=== PATIENT | male | born 1955 | race Caucasian/White ===

== ENCOUNTER 2018-10-28 00:13 | Observation (INO) ==
[2018-10-29] MEDS ORDERED: Naloxone 0.4 MG/ML INJ IVP PRN (03:52)
[2018-10-29] MEDS ORDERED: Acetaminophen 325 MG TABLET PO PRN (03:52)
[2018-10-29] MEDS ORDERED: *HR* OxyCODONE Immed Rel 5 MG TABLET PO PRN (03:52)
[2018-10-29] MEDS ORDERED: *HR* HYDROcodone/Acet 5/325 mg TABLET PO PRN (03:52)
--- NOTE | 2018-10-29 04:18 | Internal Med History&Physical ---
Date of Encounter: 10/29/18 Time of Encounter: 04:16 Internal Medicine - H&P: HPI Chief complaint: Lower extremity wound Admitted From: Emergency Dept Plans for Post Hospital Care: Home History of present illness: Mr. Post is a 63 year old male with history of atrial fibrillation, seizure disorder presents with lower extremity pain and swelling. Patient states that over the last several days he is noting increasing swelling of his right lower extremity below the knee. He also reports increasing pain in this area. He states this feels similar to when he had cellulitis in the past. He denies any specific injury her skin wound however he does state that area did open up and has been draining. Denies any fevers or chills. Denies any worsening pain with walking. Discussed with patient who wishes to be full code. Past Med Surg Social Fam HX - Past Medical History Medical history: aortic aneurysm, atrial fibrillation, hyperlipidemia, hyp ertension, other Additional medical history: CVAx2 Psychiatric history: no psych history - Past Surgical History Surgical History: cholecystectomy, coronary bypass (CABG), other Additional surgical history: aneurism repair, aortic valve replacement - Social History Smoking Status: Never smoker Smokeless Tobacco Status: No Alcohol use: none Drug use: none - Family History Mother Living Status: Still Living Hx Family Cardiac Disorders: Yes (htn, stents) Hx Family Cancer: Yes (breast ca) Father Living Status: Hx Family Cardiac Disorders: Yes (chf, htn) Hx Family Endocrine Disorder: Yes (dm) Internal Medicine - H&P: Meds Furosemide [Lasix] 40 mg PO DAILY 08/23/15 [History] Aspirin [Lo-Dose Aspirin EC] 81 mg PO HS 10/29/18 [History] Atorvastatin [Lipitor] 80 mg PO HS 10/29/18 [History] LevETIRAcetam [Keppra] 500 mg PO BID 10/29/18 [History] Metoprolol [Lopressor] 25 mg PO BID 10/29/18 [History] Pantoprazole Sodium [Protonix] 20 mg PO DAILY 10/29/18 [History] Potassium Chloride [Klor-Con 10] 10 meq PO DAILY 10/29/18 [History] Senna 8.6 mg PO BID PRN 10/29/18 [History] Warfarin [Coumadin] 5 mg PO DAILY 10/29/18 [History] Allergy/AdvReac Type Severity Reaction Status Date / Time Penicillins [PCN] Allergy Hives Verified 08/23/15 15:36 All Systems PM: A 10-system review of systems was performed and is negative for pertinent findings except as documented above in the HPI. Review of systems: Templer resistance was obtained and negative other than stated below - Constitutional Constitutional: no chills, no fever(s) - Cardiovascular Cardiovascular ROS IM: no chest pain - Respiratory Respiratory: no cough, no dyspnea - Integumentary Integumentary IM: erythema, new lesions, skin ulcer, sores - Constitutional Vitals: Temp Pulse Resp BP Pulse Ox 97.8 F 69 16 148/78 97 10/29/18 01:46 10/29/18 01:46 10/29/18 01:46 10/29/18 01:46 10/29/18 02:25 General appearance: Present: A&O X 3, pleasant, no acute distress Exam: . - Head Head exam: Present: atraumatic, normal inspection, normocephalic - Eye Eye exam: Present: EOMI, PERRL - ENT ENT exam: Present: mucous membranes moist, normal oropharynx - Neck Neck exam general surgery: Present: full ROM. Absent: tenderness - Respiratory Respiratory exam: Present: CTAB. Absent: rales, rhonchi, wheezes - Cardiovascular Cardiovascular exam: Present: RRR. Absent: gallop, rubs, systolic murmur - GI/Abdominal GI/Abdominal exam: Present: normal bowel sounds, soft. Absent: distended, tenderness - Extremities Exam Additional comments: Right lower extremity: Areas of thick induration fluid collection in the right lower extremity posteriorly and inferiorly to the knee. There is an area of ulceration that is draining purulent, bloody fluid. Moderate amount of fluctuance is appreciated. There is surrounding erythema to the area that extends superiorly up past the knee joint. Neurovascularly intact. - Neurological Exam Neurological exam: Present: alert, CN II-XII intact, oriented X3, no focal deficits - Psychiatric Psychiatric exam: Present: normal affect, normal mood - Skin Skin exam: Present: dry, intact, warm - Assessment and Plan (1) Abscess Current Visit: Yes Status: Acute Assessment and plan: Patient presents with erythema and pain of the right lower extremities with induration and fluctuance appreciated. CT scan performed at outside hospital reviewed and show multiple abscesses in the lower extremity with an area of lucency in the tibial plateau. Start patient on antibiotics with vancomycin and cefepime, will obtain wound culture. Orthopedic surgery has been consulted, patient may require surgical intervention. Keep nothing by mouth for now (2) Atrial fibrillation Current Visit: Yes Status: Acute Assessment and plan: Patient has known atrial fibrillation with history of bovine aortic valve replacement. Currently anticoagulated with Coumadin. Check PT/INR. Hold Coumadin as patient may require surgical intervention. Get EKG. Qualifiers: Atrial fibrillation type: paroxysmal Qualified Code(s): I48.0 - Paroxysmal atrial fibrillation (3) Seizure disorder Current Visit: Yes Status: Acute Assessment and plan: No evidence of seizure activity. Continue Keppra. (4) Coronary artery disease Current Visit: Yes Status: Acute Assessment and plan: Patient reports history of CABG 2. Currently chest pain-free at this time. We will obtain EKG as the patient may require surgery. Qualifiers: Coronary Disease-Associated Artery/Lesion type: [place] artery [place] vs. transplanted heart: [place] heart Associated angina: without angina Qualified Code(s): I25.10 - Atherosclerotic heart disease of [place] coronary artery without angina pectoris - Time Spent With Patient Total time spent is greater than 50% in coordination of care (as documented) at patient's floor/unit and/or counseling patient:
[2018-10-29 04:26] LABS: Basophils % 0.5 %; Eosinophils # 0.4 K/mcL (0.0-0.6); Eosinophils % 4.3 %; Hematocrit 37.1 % (37.5-50.1); Hemoglobin 11.6 g/dL (12.9-16.9); Immature Granulocytes % 0.5 % (0-4); Lymphocytes # 1.9 K/mcL (0.6-4.6); Lymphocytes % 23.9 %; Mean Corpuscular HGB Conc 31.3 g/dL (31.6-35.5); Mean Corpuscular Hemoglobin 27.3 pg (28.0-33.3); Mean Corpuscular Volume 87.3 fL (83.0-100.0); Mean Platelet Volume 9.6 fL (9.4-12.4); Monocytes # 0.9 K/mcL (0.0-1.3); Monocytes % 10.6 %; Neutrophils # 4.9 K/mcL (1.6-8.9); Platelet Count 173 K/mcL (140-400); Red Blood Count 4.25 M/mcL (4.19-5.50); Red Cell Distribution Width 15.5 % (11.5-14.5); Segmented Neutrophils % 60.2 %; White Blood Count 8.1 K/mcL (4.3-11.1)
[2018-10-29 04:33] LABS: INR 3.4; Prothrombin Time 38.2 Seconds (9.4-12.1)
[2018-10-29] MEDS: Cefepime HCl 2,000 MG in Water for inj. (sterile) 20 ML 20 ML IVP SCH (04:37)
[2018-10-29 04:44] LABS: BUN/Creatinine Ratio 19 (6-26); Blood Urea Nitrogen 20 mg/dL (8-23); Calcium 8.8 mg/dL (8.6-10.3); Carbon Dioxide 31 mEq/L (23-29); Chloride 107 mEq/L (98-107); Glucose 106 mg/dL (70-105); Osmolality,Calculated 299 (280-300); Potassium 4.1 mEq/L (3.5-5.1); Sodium 143 mEq/L (136-145); eGFR For African Americans > 60 (> 60); eGFR For Non-African Americans > 60 (> 60)
[2018-10-29] MEDS: levETIRAcetam 250 MG TABLET PO SCH ×2 (08:02→19:59)
--- NOTE | 2018-10-29 08:19 | Event Note ---
Date of Encounter: 10/29/18 Time of Encounter: 08:06 Patient seen and examined this morning at bedside. Admitted overnight for possible abscess seen on his CT scan on her right lower extremity. Currently has Bandage on. Patient had aspiration of fluid collection by orthopedics this morning. We will continue empiric vancomycin and cefepime for now. Await cultures. We will likely need infectious disease input on Wednesday. INR is supratherapeutic. Hold Coumadin for now. Nursing from no surgical intervention planned per orthopedics now. EKG was sinus bradycardia. Hold morning metoprolol and start with decreased dosage.
--- NOTE | 2018-10-29 08:26 | Orthopedic Consult Note ---
Date of Encounter: 10/29/18 Time of Encounter: 08:26 Assessment and Plan (1) Cellulitis of leg, right Current Visit: No Status: Acute I did have a long discussion with the patient regarding the diagnosis. The patient has a well seated right total knee arthroplasty, no pain with weightbearing and no pain with motion of the knee. My suspicion for any acute intra-articular knee pathology or infection is quite low. He does have however a fluid collection in the medial subcutaneous soft tissues associate with smaller multifocal abscesses, likely related to a relatively recent saphenous vein graft harvesting as evidenced by the venkatesh seen on the CT scan corresponding with the lesions themselves. Under sterile technique and after verbal consent I did aspirate the medial soft tissue fluid collection and obtain 250 mL of straw-colored serous fluid consistent with seroma. My suspicion is that the patient is experiencing seroma as well as areas of abscess after saphenous vein graft harvesting. I did discuss these findings with the vascular surgeon event promotions coordinator who will evaluate the patient and manage the patient regarding the right lower extremity seroma/infection. The knee does not appear to be involved and therefore I do not recommend any intervention regarding the knee joint itself. I will be available at any time for further recommendations as needed. I have reviewed each of the pertinent components of this chart and any other pertinent medical component(s) including but not limited to pertinent application of the chief complaint, history of present illness, current medication, medical history, allergies, family history, medical history, surgical history, social history, review of systems, vital signs, and any other portion of the pertinent patient medical record directly or indirectly involved with this patient care that is pertinent based on my medical decision process. FABIAN Celeste History of Present Illness HPI: Mr. Post is a 63 year old male with a history of atrial fibrillation on Coumadin. He also has a history of bilateral total knee arthroplasty done by my partner Dr. Foley in 2009. The patient had done well from these. The patient was seen in [facility] emergency department yesterday and transferred to our facility due to abscess in the right leg. There is concern about possible involvement of the knee arthroplasty. This prompted an orthopedic consultation. On my evaluation the patient complains of heel sided pain localized to the distal thigh and proximal medial tibial region. He notes a chronic history of intermittent arthritis after a fall 2 years ago where he was managed for a hematoma and has been seeing Dr. Hamilton in the office. The patient did undergo saphenous vein graft harvesting on this side about 4 months ago at the [facility]. 2 weeks ago he began to notice a worsening of his medial sided leg pain localized to the areas as described above. Yesterday it began to drain in the proximal medial aspect of the tibial region. The patient denies any pain at the knee itself and is been able to ambulate without issue. He denies any associated numbness, tingling, or other signs or symptoms or modifying factors. Past Med Surg Social Fam HX - Past Medical History Medical history: aortic aneurysm, atrial fibrillation, hyperlipidemia, hypertension, other Additional medical history: CVAx2 Psychiatric history: no psych history - Past Surgical History Surgical History: cholecystectomy, coronary bypass (CABG), other Additional surgical history: aneurism repair, aortic valve replacement - Social History Smoking Status: Never smoker Smokeless Tobacco Status: No Alcohol use: none Drug use: none - Family History Mother Living Status: Still Living Hx Family Cardiac Disorders: Yes (htn, stents) Hx Family Cancer: Yes (breast ca) Father Living Status: Hx Family Cardiac Disorders: Yes (chf, htn) Hx Family Endocrine Disorder: Yes (dm) Medications and Allergies Furosemide [Lasix] 40 mg PO DAILY 08/23/15 [History] Aspirin [Lo-Dose Aspirin EC] 81 mg PO HS 10/29/18 [History] Atorvastatin [Lipitor] 80 mg PO HS 10/29/18 [History] LevETIRAcetam [Keppra] 500 mg PO BID 10/29/18 [History] Metoprolol [Lopressor] 25 mg PO BID 10/29/18 [History] Pantoprazole Sodium [Protonix] 20 mg PO DAILY 10/29/18 [History] Potassium Chloride [Klor-Con 10] 10 meq PO DAILY 10/29/18 [History] Senna 8.6 mg PO BID PRN 10/29/18 [History] Warfarin [Coumadin] 5 mg PO DAILY 10/29/18 [History] Allergy/AdvReac Type Severity Reaction Status Date / Time Penicillins [PCN] Allergy Hives Verified 08/23/15 15:36 All Systems Reviewed: Constitutional -The patient denies any fevers, chills, or feelings of illness Neurologic -The patient denies any numbness, tingling, or burning pains Physical Exam - Constitutional Vitals: Temp Pulse Resp BP Pulse Ox 97.6 F 54 16 127/73 95 10/29/18 06:32 10/29/18 06:32 10/29/18 06:32 10/29/18 06:32 10/29/18 06:32 CONSTITUTIONAL -Vitals reviewed -The patient is well developed, well nourished, well groomed PSYCHIATRIC -Fully alert and oriented -Pleasant mood RIGHT LOWER EXTREMITY Inspection shows generalized swelling to the right lower extremity. There is a small 1 cm area in the proximal medial portion of the leg region below the knee with a small amount of actively draining purulent material. There is generalized erythema which is faint and localized about the medial aspect of the knee region including the distal medial thigh and proximal medial tibial region. There is a well-healed incision medially from saphenous vein graft harvesting. There is a firm palpable fluid collection in the distal medial thigh region. Well-healed total knee incision. No significant palpable knee effusion and no tenderness about the knee joint itself. I can range the knee from 0 degrees to 90 degrees without pain. No pain with axial loading of the right lower extremity. He can dorsi flex implant flex ankle and toes and the foot is sensate and well-perfused. Diagnostic Imaging: I did personally review and interpret the CT scan of the right knee which demonstrates a well-seated total knee arthroplasty. 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 A suprapatellar collection was also seen, again unchanged since 2016 and does not appear to be clinically relevant.. Overall no changes in the knee alignment or appearance. Noted is a large well-defined fluid collection in the medial aspect of the distal thigh soft tissues and small areas of fluid collection consistent with abscess. This is all localized to the subcutaneous tissue not involving the knee joint. Results - Labs Result Diagrams: 10/29/18 04:14 10/29/18 04:14 Labs: Abnormal lab results Hgb 11.6 g/dL (12.9-16.9) L 10/29/18 04:14 Hct 37.1 % (37.5-50.1) L 10/29/18 04:14 MCH 27.3 pg (28.0-33.3) L 10/29/18 04:14 MCHC 31.3 g/dL (31.6-35.5) L 10/29/18 04:14 RDW 15.5 % (11.5-14.5) H 10/29/18 04:14 PT 38.2 Seconds (9.4-12.1) H 10/29/18 04:14 Carbon Dioxide 31 mEq/L (23-29) H 10/29/18 04:14 Glucose 106 mg/dL (70-105) H 10/29/18 04:14 H & H 10/29/18 Range/Units 04:14 Hgb 11.6 L (12.9-16.9) g/dL Hct 37.1 L (37.5-50.1) % All other labs normal. Consult Discharge Plan - Plan Referrals: Shanthi Mccollum [Primary Care Provider] -
[2018-10-29 10:33] LABS: Appearance of Body Fluid Clear (Clear); Source of Body Fluid Left knee seroma flu; Volume of Body Fluid 11 mL
--- NOTE | 2018-10-29 15:13 | Vascular/Endovasc Consult Note ---
Date of Encounter: 10/29/18 Time of Encounter: 15:00 Assessment and Plan (1) Cellulitis of leg, right Current Visit: No Status: Acute R leg cellulitis and abscess. Patient is very tender on exam and will not tolerate drainage by the bedside Will plan to take patient to OR tomorrow for I and D Will allow INR to drift down with FFP available in the OR. Discussed with patient who agrees NPO after midnight. - History of Present Illness Consult date: 10/29/18 Requesting physician: Galo Islas Consult reason: Cellulitis/seroma in setting of previous saphenous vein harvesting History of present illness: Mr. Post is a 63 year old male with a history of atrial fibrillation on Coumadin. He has a history of AVR, ascending aortic aneurysm repair and CABG four months ago at [facility] by Dr Pierre. The patient had done well from these. The patient was seen in [facility] emergency department yesterday and transferred to our facility due to abscess in the right leg. He had a fall two years ago in that same leg and has several bouts of cellulitis since that time. He was doing well and did undergo saphenous vein graft harvesting on this side about 4 months ago at the [facility]. 2 weeks ago he began to notice a worsening of his medial sided leg pain localized to the areas as described above. Yesterday it began to drain in the proximal medial aspect of the tibial region. He denies any associated numbness, tingling, or other signs or symptoms or modifying factors. Past Med Surg Social Fam HX - Past Medical History Medical history: aortic aneurysm, atrial fibrillation, hyperlipidemia, hypertension, other Additional medical history: CVAx2 Psychiatric history: no psych history - Past Surgical History Surgical History: cholecystectomy, coronary bypass (CABG), other Additional surgical history: aneurism repair, aortic valve replacement - Social History Smoking Status: Never smoker Smokeless Tobacco Status: No Alcohol use: none Drug use: none - Family History Mother Living Status: Still Living Hx Family Cardiac Disorders: Yes (htn, stents) Hx Family Cancer: Yes (breast ca) Father Living Status: Hx Family Cardiac Disorders: Yes (chf, htn) Hx Family Endocrine Disorder: Yes (dm) Medications and Allergies Furosemide [Lasix] 40 mg PO DAILY 08/23/15 [History] Aspirin [Lo-Dose Aspirin EC] 81 mg PO HS 10/29/18 [History] Atorvastatin [Lipitor] 80 mg PO HS 10/29/18 [History] LevETIRAcetam [Keppra] 500 mg PO BID 10/29/18 [History] Metoprolol [Lopressor] 25 mg PO BID 10/29/18 [History] Pantoprazole Sodium [Protonix] 20 mg PO DAILY 10/29/18 [History] Potassium Chloride [Klor-Con 10] 10 meq PO DAILY 10/29/18 [History] Senna 8.6 mg PO BID PRN 10/29/18 [History] Warfarin [Coumadin] 5 mg PO DAILY 10/29/18 [History] Allergy/AdvReac Type Severity Reaction Status Date / Time Penicillins [PCN] Allergy Hives Verified 08/23/15 15:36 All Systems Review: The remainder of the systems were reviewed and are negative Exam Vital Signs, Last 4 Hours Temp Pulse Resp BP Pulse Ox 10/29/18 12:14 97.7 F 58 18 112/65 96 General: Present: Conversant, No Apparent Distress HEENT: Present: Atraumatic Cardiac: Present: Reg Rate and Rhythm Lungs: Present: Normal Breath Sounds Neuro: Present: Alert and responsive, No focal deficits noted Abdomen: Present: Soft Vascular: Present: Pulse, normal, Other (Stigmata of venous insufficiency bilateral R>L) Skin: Present: Wound/ulcer(s) (1-2cm purulent area proximal medial calf actively draining, surrounding extensive cellulitis) Consult Discharge Plan - Plan Referrals: Shanthi Mccollum [Primary Care Provider] -
[2018-10-29] MEDS: Aspirin Enteric Coated 81 MG Tablet PO SCH (19:59)
[2018-10-30] MEDS ORDERED: Aminoglycoside Consult 1 EACH MC ONE (01:35)
[2018-10-30] MEDS: Cefepime HCl 2,000 MG in Water for inj. (sterile) 20 ML 20 ML IVP SCH (03:19)
[2018-10-30 04:52] LABS: INR 2.5; Prothrombin Time 28.6 Seconds (9.4-12.1)
[2018-10-30 05:05] LABS: BUN/Creatinine Ratio 19 (6-26); Blood Urea Nitrogen 25 mg/dL (8-23); Calcium 8.5 mg/dL (8.6-10.3); Carbon Dioxide 27 mEq/L (23-29); Chloride 109 mEq/L (98-107); Glucose 130 mg/dL (70-105); Osmolality,Calculated 304 (280-300); Potassium 4.1 mEq/L (3.5-5.1); Sodium 144 mEq/L (136-145); eGFR For African Americans > 60 (> 60); eGFR For Non-African Americans 55 (> 60)
--- NOTE | 2018-10-30 08:10 | Internal Med Progress Note ---
Hospitalist Progress Note - Encounter Date of Encounter: 10/30/18 Time of Encounter: 08:10 - Subjective Interval History: Patient seen and examined this morning at present. No acute overnight events. Denies new complaints. Right leg pain improved. No fever or chills nausea vomiting or diarrhea. - Exam Vitals: Temp Pulse Resp BP Pulse Ox 98.1 F 70 15 138/75 96 10/30/18 07:41 10/30/18 07:41 10/30/18 07:41 10/30/18 07:41 10/30/18 07:41 Exam: General: In no acute distress. Morbid obesity Respiratory exam: CTAB. no accessory muscle use, rales, rhonchi, wheezes Cardiovascular exam: RRR, +S1, +S2. no murmur, gallop, rubs. GI/Abdominal exam: Non-tender, Non-distended, normal bowel sounds, soft, no peritoneal signs. Extremities exam: trace pedal edema b/l, pulses palpable in b/l lower extremities. no calf tenderness. Rt LE with GAGE wrap and bandage. Redness margin receded compared on markings. Neurological exam: CN II-XII intact, AO X3, no focal deficits. Skin exam: as above - Assessment and Plan (1) Abscess Current Visit: Yes Status: Acute (2) Atrial fibrillation Current Visit: Yes Status: Acute (3) Seizure disorder Current Visit: Yes Status: Acute (4) Coronary artery disease Current Visit: Yes Status: Acute - Summary of Assessment and Plan Summary of Assessment and Plan: Assessment Acute Cellulitis and abscess OSKAR sinus Bradycardia Chronic HTN HLD Afib Aortic aneurysm CAD s/p CABG and AVR Seizure disorder Plan - Recent saphenous vein harvesting for CABG about 4 months ago. Came with 2 week h/o swelling, redness and pain. CT showed multifocal abscesses. s/p aspiration by ortho. No knee involvement per ortho and no further intervention needed. erythema margin reduced compared to admission. Was started on vancomycin and cefepime. Developed OSKAR. Will change vancomycin to clindamycin for now. Start IVF. Obtain urinalysis and urine sodium, manager environmental health and safety. Will consult ID tomorrow. f/u wound cultures. Blood culture not collect on admission. Will obtain. - Vascular consulted. Plan for I&D in OR today. INR 2.5. May give FFP in OR. Coumadin held for now. - Started on decreased dose of metoprolol given sinus bradycardia on home metoprolol. - c/w [facility]: Result - Labs CBC & Chem 7: 10/29/18 04:14 10/30/18 04:20 Labs: BMP 10/30/18 04:20 Sodium 144 Potassium 4.1 Chloride 109 H Carbon Dioxide 27 BUN 25 H Creatinine 1.32 H Glucose 130 H Calcium 8.5 L - ABG Interpretation ABG results: PT/INR, D-dimer PT 28.6 Seconds (9.4-12.1) H 10/30/18 04:20 Consult Discharge Plan - Plan Referrals: Shanthi Mccollum [Primary Care Provider] - (2) Atrial fibrillation Qualifiers: Atrial fibrillation type: paroxysmal Qualified Code(s): I48.0 - Paroxysmal atrial fibrillation (4) Coronary artery disease Qualifiers: Coronary Disease-Associated Artery/Lesion type: [place] artery [place] vs. transplanted heart: [place] heart Associated angina: without angina Qualified Code(s): I25.10 - Atherosclerotic heart disease of [place] coronary artery without angina pectoris
[2018-10-30] MEDS: levETIRAcetam 250 MG TABLET PO SCH ×2 (09:05→20:47)
[2018-10-30] MEDS: Ringers Solution, Lactated 1,000 ML IVC SCH (09:07)
--- NOTE | 2018-10-30 09:07 | Anesthesia Evaluation PreOp ---
Date of Encounter: 10/30/18 Time of Encounter: 09:04 - Past History Planned Operation: I & D R leg abcess Cardiac History: Arrhythmia (afib), Cardiac Surgery (CABG, AVR), Other (aortic aneurysm repair) Pulmonary History: Denies Any Significant HX INSPECTOR RECEIVING History: Seizures Other Medical History: Renal (OSKAR), Other (cellulitis in the setting of previous saphenous vein harvetsting, BMI 42) Anesthesia History: No Prior Anesthetic Complications, Past Anesthesia (cholecystectomy, coronary bypass (CABG), other Additional surgical history: aneurysm repair, aortic valve replacement) Alcohol Use: none Drug use: none Medications and Allergies Furosemide [Lasix] 40 mg PO DAILY 08/23/15 [History] Aspirin [Lo-Dose Aspirin EC] 81 mg PO HS 10/29/18 [History] LevETIRAcetam [Keppra] 500 mg PO BID 10/29/18 [History] Metoprolol [Lopressor] 25 mg PO BID 10/29/18 [History] Pantoprazole Sodium [Protonix] 20 mg PO DAILY 10/29/18 [History] Potassium Chloride [Klor-Con 10] 10 meq PO DAILY 10/29/18 [History] Sennosides [Senna] 8.6 mg PO BID PRN 10/29/18 [History] Warfarin [Coumadin] 5 mg PO 1800 10/29/18 [History] Atorvastatin Calcium [Lipitor] 80 mg PO HS 10/30/18 [History] Allergy/AdvReac Type Severity Reaction Status Date / Time Penicillins [PCN] Allergy Hives Verified 10/30/18 13:40 - Meds/Allergy Pre-op Review Medications Reviewed: Yes Allergies Reviewed: Yes Beta Blockers on Current Med List: Yes If Beta Blockers taken, Date/Time (Last Dose taken): 10/29/181958 Anesthesia Results - Labs 10/29/18 04:14 10/30/18 04:20 Laboratory Tests 08/24/15 10/30/18 04:19 04:20 PT 28.6 H APTT 35.3 INR 2.5 Anesthesia Exam Vital Signs/O2 Sat, Most Current Temp Pulse Resp BP Pulse Ox 98.1 F 70 15 138/75 96 10/30/18 07:41 10/30/18 07:41 10/30/18 07:41 10/30/18 07:41 10/30/18 07:41 Weight: 131kg NPO (# of Hours): >8 - HEENT Pupil (Motor): Pupils equal, EOMI Mallampati: II Teeth: Edentulous Oral Opening: Greater than 3 - INSPECTOR RECEIVING LOC: Oriented INSPECTOR RECEIVING Motor: Normal RUE, Normal LUE, Normal RLE, Normal LLE, Normal Face INSPECTOR RECEIVING Sensory: Normal: RUE, LUE, RLE, LLE, Face - Cardiac Rhythm: Regular - Pulmonary Breath Sounds: bilateral Clear Respiratory Effort: Symmetrical Anesthesia Assess/Plan ASA Score: 3 Level of consciousness: Cooperative Anesthetic Plan: General Monitoring Plan: Standard Monitors Recovery Plan: PACU
[2018-10-30 10:59] LABS: Bilirubin,Urine Negative (Negative); Blood,Urine Negative (Negative); Clarity,Urine Clear (Clear); Color,Urine Yellow (Yellow); Glucose,Urine (UA) Normal (Normal); Ketones,Urine Negative (Negative); Leukocyte Esterase,Urine Trace (Negative); Nitrite,Urine Negative (Negative); Protein,Urine Trace mg/dL (Neg-Trace); Specific Gravity,Urine 1.008 (1.010-1.025); Urobilinogen,Urine Normal (Normal)
[2018-10-30 11:00] LABS: Sodium, Urine 137.7 mEq/L
[2018-10-30 11:17] LABS: Bacteria,Urine Few per hpf (None-Few); RBC,Urine 0-3 per hpf (0-3); Squamous Epithelial Cell,Urine Few per lpf (None-Few); WBC,Urine 0-3 per hpf (0-3)
[2018-10-30] MEDS ORDERED: *HR* Midazolam HCl 2 MG/2 ML VIAL ONE (14:15)
[2018-10-30] MEDS ORDERED: *HR* FentaNYL (PF) 100 MCG/2 ML VIAL ONE (14:15)
[2018-10-30] MEDS ORDERED: *HR* Propofol 200 MG/20 ML VIAL IVP ONE (14:15)
[2018-10-30] MEDS ORDERED: Ondansetron 4 MG/2 ML VIAL ONE (14:18)
[2018-10-30] MEDS ORDERED: Lidocaine -MPF 2% 2 ML VIAL ONE (14:18)
[2018-10-30] MEDS ORDERED: *HR* Succinylcholine 200 MG/10 ML VIAL IVP ONE (14:18)
[2018-10-30] MEDS ORDERED: Lidocaine -MPF 4% 5 ML AMPUL ONE (14:18)
[2018-10-30] MEDS: Clindamycin 600 MG/50 ML 600 MG/50 ML IV.SOLN IVPB SCH (16:17)
[2018-10-30] MEDS ORDERED: Dexamethasone 4 MG/ML VIAL ONE (16:27)
[2018-10-30] MEDS ORDERED: *HR* Promethazine 25 MG/ML VIAL IVP PRN (17:04)
[2018-10-30] MEDS ORDERED: *HR* OxyCODONE Immed Rel 5 MG TABLET PO PRN (17:04)
[2018-10-30] MEDS ORDERED: Ondansetron 4 MG/2 ML VIAL IVP ONE (17:04)
[2018-10-30] MEDS ORDERED: *HR* FentaNYL (PF) 100 MCG/2 ML VIAL IVP PRN (17:04)
--- NOTE | 2018-10-30 17:08 | Operative Note ---
Date of procedure: 10/30/18 Pre-op diagnosis: Right lower extremity abscess Post-op diagnosis: same Procedure: Incision and drainage of a right lower extremity abscess Complications: none Anesthesia: TRINOA Surgeon: Lela Frank Was there an health information assistant present: No Estimated blood loss (cc): 2 Specimen: Wound culture Condition: stable Disposition: floor Procedure in Detail: 63 year old male with a history of a soft tissue injury to right lower extremity who is plagued with recurrent cellulitis. Developed cellulitis in the right lower extremity just distal of a previous greater saphenous vein harvest site with subsequent abscess formation and drainage. CT of the lower extremity was performed at outside hospital. Upon review of the outside CT and his physical examination, the decision was made to take him to the OR for incision and drainage of the abscess as well as exploration of the wound to see if it communicated with a larger fluid collection in his thigh. After informed consent was obtained, the patient was taken to the operating room and placed on the table in supine position. An audible timeout was performed and he was then induced with anesthesia. His right leg was prepped and draped in the usual sterile fashion. The wound was probed and felt to extend posteriorly into a deeper cavity. A 2cm incision was made over the abscess extending the wound longitudinally. The cavity was entered and drained of 4cc of purulent material. The cavity was probed and did not appear to communicate with the seroma in the thigh. Culture swabs were obtained. The wound was irrigated with 100cc of normal saline. The wound was then packed with 4x4 gauze soaked in normal saline and then covered with a dry gauze. The leg was then wrapped in a kerlex and an GAGE bandage. He was extubated and taken to the recovery room in stable condition.
[2018-10-30] MEDS ORDERED: Acetaminophen IV 1,000 MG/100 ML INFUS..BTL IVPB ONE (17:09)
[2018-10-30] MEDS ORDERED: Ringers Solution, Lactated 1,000 ML IVC SCH (17:15)
--- NOTE | 2018-10-30 17:16 | Anesthesia Evaluation Post Op ---
Date of Encounter: 10/30/18 Time of Encounter: 17:16 - Vital Signs Vital Signs: Vital Signs/O2 Sat, Most Current Temp Pulse Resp BP Pulse Ox 96.8 F L 54 14 138/72 92 10/30/18 16:54 10/30/18 17:14 10/30/18 17:14 10/30/18 17:14 10/30/18 17:14 - Lungs Lungs: Clear Ascult./Percussion - Airway Airway: Non-obstructed - Cardiovascular Regular Rate - Mental Status Mental Status: Alert & Oriented, Answers Appropriately - Pain Pain Scale: 0 Pain Scale used: Numeric (1 - 10) - Nausea Vomiting Nausea Vomiting: Not Present - Hydration Hydration: Ice chips - Discharge PostOp Status: Transfer Patient to floor
[2018-10-30 18:30] LABS: BUN/Creatinine Ratio 20 (6-26); Blood Urea Nitrogen 20 mg/dL (8-23); Calcium 8.8 mg/dL (8.6-10.3); Carbon Dioxide 23 mEq/L (23-29); Chloride 110 mEq/L (98-107); Glucose 92 mg/dL (70-105); Osmolality,Calculated 298 (280-300); Potassium 4.2 mEq/L (3.5-5.1); Sodium 143 mEq/L (136-145); eGFR For African Americans > 60 (> 60); eGFR For Non-African Americans > 60 (> 60)
[2018-10-30] MEDS: Aspirin Enteric Coated 81 MG Tablet PO SCH (20:47)
[2018-10-31] MEDS: Clindamycin 600 MG/50 ML 600 MG/50 ML IV.SOLN IVPB SCH ×2 (00:57→08:37)
[2018-10-31] MEDS: Ringers Solution, Lactated 1,000 ML IVC SCH (00:59)
[2018-10-31] MEDS: Cefepime HCl 2,000 MG in Water for inj. (sterile) 20 ML 20 ML IVP SCH ×2 (04:14→16:59)
[2018-10-31 06:02] LABS: Basophils % 0.1 %; Hematocrit 37.4 % (37.5-50.1); Hemoglobin 11.7 g/dL (12.9-16.9); Immature Granulocytes % 0.8 % (0-4); Lymphocytes # 0.9 K/mcL (0.6-4.6); Lymphocytes % 9.8 %; Mean Corpuscular HGB Conc 31.3 g/dL (31.6-35.5); Mean Corpuscular Hemoglobin 27.3 pg (28.0-33.3); Mean Corpuscular Volume 87.4 fL (83.0-100.0); Monocytes # 0.1 K/mcL (0.0-1.3); Monocytes % 1.4 %; Neutrophils # 7.7 K/mcL (1.6-8.9); Platelet Count 201 K/mcL (140-400); Red Blood Count 4.28 M/mcL (4.19-5.50); Red Cell Distribution Width 15.3 % (11.5-14.5); Segmented Neutrophils % 87.9 %; White Blood Count 8.8 K/mcL (4.3-11.1)
[2018-10-31 06:19] LABS: BUN/Creatinine Ratio 20 (6-26); Blood Urea Nitrogen 25 mg/dL (8-23); Calcium 9.1 mg/dL (8.6-10.3); Carbon Dioxide 24 mEq/L (23-29); Chloride 108 mEq/L (98-107); Glucose 165 mg/dL (70-105); Osmolality,Calculated 302 (280-300); Potassium 4.2 mEq/L (3.5-5.1); Sodium 142 mEq/L (136-145); eGFR For African Americans > 60 (> 60); eGFR For Non-African Americans 60 (> 60)
[2018-10-31] MEDS: levETIRAcetam 250 MG TABLET PO SCH ×2 (08:37→20:43)
--- NOTE | 2018-10-31 09:10 | Infectious Disease Consult ---
Infectious Disease-Consult - Encounter Date/Time Date of Encounter: 10/31/18 Time of Encounter: 10:08 - Data of Consult Patient: new to practice Reason for consult: RLE abscess Consult date: 10/31/18 Requesting Physician: Tonio Cabello MD Primary Care Provider: Shanthi BAZZI HPI: Mr. Post is a 63-year-old male with past medical history of A. fib, seizures, hyperlipidemia, hypertension, CVA, status post CABG with saphenous vein graft harvesting, AVR, and abdominal aortic aneurysm repair at [facility] 4 months ago and remote history of total knee replacement in the right lower extremity. The patient was admitted to the hospital 10/29/18 for right lower extremity abscess. We are consulted 10/31/18 for further workup and treatment recommendations for right lower extremity abscess. Briefly, the patient is a 63-year-old male with past medical history as stated above. The patient presented to [facility] with complaints of right lower extremity swelling and pain that had started a couple of days prior to admission. He developed drainage from his right lower extremity which p rompted his valuation the emergency department. Upon arrival, he was afebrile and hemodynamically stable. A was normal. He was CT of the right lower extremity that showed multiple superficial abscesses in the posterior medial right lower extremity as well as an indeterminate suprapatellar collection indeterminate subcortical lucency of the posterior medial tibial plateau. This far as I can tell, no cultures were obtained at the outside facility. He was transferred here for further evaluation and treatment. Since admission, he has been evaluated by orthopedics who aspirated about 250 ML's of serous fluid from the suprapatellar fluid collection. Cell count with differential was completed that revealed TLC of 174 with 98% leukocytes. Cultures no growth and Gram stain is negative. He was evaluated by vascular surgery for the right lower extremity abscesses which appeared to be at his previous saphenous graft harvesting site. He was taken to the operating room 10/30/[address] Farnk where he underwent an I&D of the right lower extremity abscess. Intraoperative cultures are pending. Blood cultures drawn 10/30/18 are pending 2 sets. He was initially started on cefepime and vancomycin on admission, the vancomycin was discontinued due to concern for OSKAR. Currently, the patient is on cefepime and clindamycin. We have been asked to evaluate and make further recommendations. During my exam today, the patient endorses the history as stated above. He states he has had recurrent cellulitis in the RLE since he sustained a work- related injury in 2016. He was taking prophylactic clindamycin prior to his recent heart surgery, but it was discontinued post-op. He endorses some subjective chills for a couple of weeks, but denies fevers. Denies headache, neck pain, weakness, or dizziness. Denies nausea, vomiting, diarrhea, or constipation. Denies abdominal pain or urinary complaints. States appetite is been okay. Denies pain except in the right lower extremity. Denies oral thrush or skin rashes. The patient lives at home with his and 2 children. 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 Denies tobacco, alcohol, or illicit drug use. Denies recent travel. Has an outside dog and an inside cat, but denies bites or scratches. Denies chronic infectious diseases. - ROS Review of Systems: All systems reviewed and no additional remarkable complaints except as stated. - Results CBC & Chem 7: 10/31/18 05:39 10/31/18 05:39 - Exam Vitals: Temp Pulse Resp BP Pulse Ox 97.7 F 45 17 138/74 96 10/31/18 06:44 10/31/18 06:44 10/31/18 06:44 10/31/18 06:44 10/31/18 06:44 Exam: Head: Atraumatic, normal inspection, normocephalic. Eye: EOMI, PERRLA, no scleral icterus noted. ENT: Mucous membranes moist. No odontogenic infection noted. Neck: Normal inspection, no meningismus. Respiratory: Clear to auscultation. No rales, respiratory distress, rhonchi, or wheezes noted. Cardiovascular: Regular rate and rhythm, S1 and S2 audible. No murmurs, rubs, or gallops. GI: Soft, obese, normal bowel sounds. Extremities:No joint swelling noted. RLE 1+ edema. RLE dressing C/D/I. Venous stasis dermatitis noted to the BLE. Back: Normal inspection. No vertebral tenderness noted. Neurological: Alert, oriented 3, no focal deficits. Psychiatric: normal affect, normal mood. Skin: Dry, intact, warm. Normal color. No rashes. Furosemide [Lasix] 40 mg PO DAILY 08/23/15 [History] Aspirin [Lo-Dose Aspirin EC] 81 mg PO HS 10/29/18 [History] LevETIRAcetam [Keppra] 500 mg PO BID 10/29/18 [History] Metoprolol [Lopressor] 25 mg PO BID 10/29/18 [History] Pantoprazole Sodium [Protonix] 20 mg PO DAILY 10/29/18 [History] Potassium Chloride [Klor-Con 10] 10 meq PO DAILY 10/29/18 [History] Sennosides [Senna] 8.6 mg PO BID PRN 10/29/18 [History] Warfarin [Coumadin] 5 mg PO 1800 10/29/18 [History] Atorvastatin Calcium [Lipitor] 80 mg PO HS 10/30/18 [History] Allergy/AdvReac Type Severity Reaction Status Date / Time Penicillins [PCN] Allergy Hives Verified 10/30/18 13:40 - Assessment and Plan (1) Abscess Current Visit: Yes Status: Acute Location: RLE. Causative organism: unclear. CT of the RLE showed multiple superficial abscess in the posterior medial right lower extremity. No SIRS criteria. Blood cultures drawn 10/29/18 at [facility] are NGTD x 2 sets. Repeat blood cultures drawn here 10/30/18 are pending x 2 sets. Vascular surgery consult a due to concern that this was at the site of the patient's prior saphenous vein harvesting. Status post I&D of the right lower extremity abscess 10/30/[address] Frank. Operative note reviewed. Intraoperative cultures are pending. Currently on cefepime and clindamycin. SNOMED Code(s): 676961585 (2) Cellulitis of leg, right Current Visit: No Status: Acute Location: Right lower extremity. Chronic, recurring. Causative organism: Unclear. The patient likely has an element of venous stasis that is contributing to his recurrent cellulitis. Improved per patient report. Currently on cefepime and clindamycin. SNOMED Code(s): 381965125 (3) Obesities, morbid Current Visit: No Status: Chronic SNOMED Code(s): 798449619 (4) Atrial fibrillation Current Visit: Yes Status: Chronic Qualifiers: Atrial fibrillation type: paroxysmal Qualified Code(s): I48.0 - Paroxysmal atrial fibrillation SNOMED Code(s): 91662370 (5) Seizure disorder Current Visit: Yes Status: Acute SNOMED Code(s): 842457729 (6) Coronary artery disease Current Visit: Yes Status: Acute Status post CABG, aortic aneurysm repair, and AVR [facility] [address] [facility]. Qualifiers: Coronary Disease-Associated Artery/Lesion type: [place] artery [place] vs. transplanted heart: [place] heart Associated angina: without angina Qualified Code(s): I25.10 - Atherosclerotic heart disease of [place] coronary artery without angina pectoris SNOMED Code(s): 99048681 (7) Drug allergy, antibiotic Current Visit: Yes Status: Acute PCN - as a child. Tolerating cefepime without a problem. SNOMED Code(s): 746528276609031 - Recommendations Recommendations: Await blood cultures devitalized. Await intraoperative cultures finalized. Wound care per the vascular team. Continue cefepime 2 g IV every 12 hours. Discontinue clindamycin. Start vancomycin IV. Pharmacy to dose. Goal trough approximately 10. Will monitor renal function closely and discuss with pharmacy re: keeping trough closer to 10. Start flagyl 500mg PO TID. Duration of treatment depends on the clinical picture. Monitor renal function for drug toxicity and does just antibiotics. Past Med Surg Social Fam HX - Past Medical History Medical history: aortic aneurysm, atrial fibrillation, hyperlipidemia, hypertension, other Additional medical history: CVAx2 Psychiatric history: no psych history - Past Surgical History Surgical History: cholecystectomy, coronary bypass (CABG), other Additional surgical history: aneurism repair, aortic valve replacement - Social History Smoking Status: Never smoker Smokeless Tobacco Status: No Alcohol use: none Drug use: none - Family History Mother Living Status: Still Living Hx Family Cardiac Disorders: Yes (htn, stents) Hx Family Cancer: Yes (breast ca) Father Living Status: Hx Family Cardiac Disorders: Yes (chf, htn) Hx Family Endocrine Disorder: Yes (dm) Consult Discharge Plan - Plan Referrals: Shanthi Mccollum [Primary Care Provider] - - Attending Attestation I have personally performed a face to face evaluation on this patient. I have reviewed and agree with the care plan. History and Exam by me shows: Assessment and plan: 1.Abscess right lower extremity causative organism clear 2.Cellulitis of the right lower extremity 3.Morbid obesity 4.History of CVA 5.Seizure disorder 6.Heart disease 7.Status post bovine aortic valve replacement 8.Penicillin allergy tolerating cefepime Recommendations Await blood cultures devitalized. Await intraoperative cultures finalized. Wound care per the vascular team. Continue cefepime 2 g IV every 12 hours. Discontinue clindamycin. Start vancomycin IV. Pharmacy to dose. Goal trough approximately 10. Will monitor renal function closely and discuss with pharmacy re: keeping trough luan ser to 10. Start flagyl 500mg PO TID. Duration of treatment depends on the clinical picture. Monitor renal function for drug toxicity and does just antibiotics.
--- NOTE | 2018-10-31 10:19 | Internal Med Progress Note ---
Hospitalist Progress Note - Encounter Date of Encounter: 10/31/18 Time of Encounter: 10:19 - Subjective Interval History: Patient seen and examined this morning at bedside. No acute overnight events. Patient denies any fevers chills nausea vomiting or diarrhea. Denies any chest pain or difficulty breathing. Right lower extremity pain improved. - Exam Vitals: Temp Pulse Resp BP Pulse Ox 97.7 F 45 17 138/74 96 10/31/18 06:44 10/31/18 06:44 10/31/18 06:44 10/31/18 06:44 10/31/18 06:44 Exam: General: In no acute distress. Morbid obesity Respiratory exam: CTAB. no accessory muscle use, rales, rhonchi, wheezes Cardiovascular exam: RRR, +S1, +S2. no murmur, gallop, rubs. GI/Abdominal exam: Non-tender, Non-distended, normal bowel sounds, soft, no peritoneal signs. Extremities exam: trace pedal edema b/l, pulses palpable in b/l lower extremities. no calf tenderness. Rt LE with GAGE wrap and bandage. Redness margin receded compared on markings. Neurological exam: CN II-XII intact, AO X3, no focal deficits. Skin exam: as above - Assessment and Plan (1) Abscess Current Visit: Yes Status: Acute (2) Atrial fibrillation Current Visit: Yes Status: Chronic (3) Seizure disorder Current Visit: Yes Status: Acute (4) Coronary artery disease Current Visit: Yes Status: Acute - Summary of Assessment and Plan Summary of Assessment and Plan: Assessment Acute Cellulitis and abscess OSKAR- resolved Sinus Bradycardia Chronic HTN HLD Afib Aortic aneurysm CAD s/p CABG and AVR Seizure disorder Plan - Recent saphenous vein harvesting for CABG about 4 months ago. Came with 2 week h/o swelling, redness and pain. CT showed multifocal abscesses. s/p aspiration by ortho. No knee involvement per ortho and no further intervention needed. s/p I&D by vascular surgery on 10/30/18 with 4cc purulent material drainage and wound was packed. erythema margin reduced compared to admission. Was started on vancomycin and cefepime. Developed OSKAR. Will change vancomycin to clindamycin for now. OSKAR resolved with fluid. Antibiotics now changed back to Vancomycin and cefepime per ID with close monitoring along with flagy. f/u wound cultures and Blood culture. ID recommendations appreciated. - Fena indicating intrinsic disease. Possibly with CKD. Monitor renal function while on vancomycin. Avoid nephrotoxins. - Has sinus bradycardia with avg rate around 40-50s. Hold metoprolol for now. BP stable. Hold BB for now. resume coumadin. - c/w [facility] Internal Medicine: Result - Labs CBC & Chem 7: 10/31/18 05:39 10/31/18 05:39 Labs: Short CBC 10/31/18 Range/Units 05:39 WBC 8.8 (4.3-11.1) K/mcL Hgb 11.7 L (12.9-16.9) g/dL Hct 37.4 L (37.5-50.1) % Plt Count 201 (140-400) K/mcL Neutrophils # 7.7 (1.6-8.9) K/mcL BMP 10/30/18 10/31/18 17:51 05:39 Sodium 143 142 Potassium 4.2 4.2 Chloride 110 H 108 H Carbon Dioxide 23 24 BUN 20 25 H Creatinine 0.98 1.22 Glucose 92 165 H Calcium 8.8 9.1 Urine 10/30/18 Range/Units 10:48 Urine Color Yellow (Yellow) Urine Clarity Clear (Clear) Urine pH 6.0 (5.0-8.0) pH Units Ur Specific [place] 1.008 L (1.010-1.025) Urine Protein Trace (Neg-Trace) mg/dL Urine Glucose (UA) Normal (Normal) mg/dL - ABG Interpretation ABG results: PT/INR, D-dimer PT 28.6 Seconds (9.4-12.1) H 10/30/18 04:20 Consult Discharge Plan - Plan Referrals: Shanthi Mccollum [Primary Care Provider] - (2) Atrial fibrillation Qualifiers: Atrial fibrillation type: paroxysmal Qualified Code(s): I48.0 - Paroxysmal atrial fibrillation (4) Coronary artery disease Qualifiers: Coronary Disease-Associated Artery/Lesion type: [place] artery [place] vs. transplanted heart: [place] heart Associated angina: without angina Qualified Code(s): I25.10 - Atherosclerotic heart disease of [place] coronary artery without angina pectoris
[2018-10-31] MEDS ORDERED: Vancomycin 1 EACH in 0.9 % Sodium Chloride 250 ML IVPB SCH (14:00)
[2018-10-31] MEDS: metroNIDAZOLE 500 MG TABLET PO SCH ×2 (15:15→20:43)
[2018-10-31] MEDS ORDERED: Warfarin perPT PO PRN (18:00)
[2018-10-31 18:14] LABS: INR 1.8; Prothrombin Time 20.6 Seconds (9.4-12.1)
[2018-10-31] MEDS ORDERED: *HR* Warfarin 5 MG TABLET PO ONE (18:53)
[2018-10-31] MEDS ORDERED: Vancomycin 500 MG in 0.9 % Sodium Chloride Mini Bag 100 ML IVPB ONE (20:00)
[2018-10-31] MEDS: Aspirin Enteric Coated 81 MG Tablet PO SCH (20:43)
[2018-11-01] MEDS ORDERED: Aminoglycoside Consult 1 EACH MC ONE (01:35)
[2018-11-01 04:54] LABS: INR 1.8; Prothrombin Time 19.9 Seconds (9.4-12.1)
[2018-11-01 05:04] LABS: BUN/Creatinine Ratio 25 (6-26); Blood Urea Nitrogen 33 mg/dL (8-23); Calcium 8.8 mg/dL (8.6-10.3); Carbon Dioxide 25 mEq/L (23-29); Chloride 111 mEq/L (98-107); Glucose 121 mg/dL (70-105); Osmolality,Calculated 301 (280-300); Potassium 4.2 mEq/L (3.5-5.1); Sodium 141 mEq/L (136-145); eGFR For African Americans > 60 (> 60); eGFR For Non-African Americans 54 (> 60)
[2018-11-01] MEDS: Cefepime HCl 2,000 MG in Water for inj. (sterile) 20 ML 20 ML IVP SCH ×2 (05:32→14:54)
[2018-11-01] MEDS: levETIRAcetam 250 MG TABLET PO SCH ×2 (10:08→20:48)
[2018-11-01] MEDS: metroNIDAZOLE 500 MG TABLET PO SCH ×3 (10:08→20:49)
--- NOTE | 2018-11-01 11:52 | Infectious Disease Progress No ---
ID Progress Note Date of Encounter: 11/01/18 Time of Encounter: 11:30 - Subjective Subjective: Patient seen and examined sitting up in the bedside chair. No acute events noted overnight. Patient states overall he feels well. Denies fevers, chills, rigors. Denies chest pain, shortness of breath, or cough. Denies nausea, vomiting, diarrhea, constipation. Denies abdominal pain or urinary complaints. Denies oral thrush or skin rashes. Reports minimal pain at the surgical site. States overall his leg is markedly improved compared to when he was admitted. - Objective CBC & Chem 7: 10/31/18 05:39 11/02/18 05:48 - Exam Vitals: Temp Pulse Resp BP Pulse Ox 97.4 F L 56 18 157/81 94 11/01/18 11:00 11/01/18 11:00 11/01/18 11:00 11/01/18 11:00 11/01/18 11:00 Exam: Head: Atraumatic, normal inspection, normocephalic. Eye: EOMI, PERRLA, no scleral icterus noted. ENT: Mucous membranes moist. No odontogenic infection noted. Neck: Normal inspection, no meningismus. Respiratory: Clear to auscultation. No rales, respiratory distress, rhonchi, or wheezes noted. Cardiovascular: Regular rate and rhythm, S1 and S2 audible. No murmurs, rubs, or gallops. GI: Soft, obese, normal bowel sounds. Extremities:No joint swelling noted. RLE 1+ edema. RLE dressing C/D/I. no erythema noted extending beyond the edges of the gauze dressing. Venous stasis dermatitis noted to the BLE. Neurological: Alert, oriented 3, no focal deficits. Psychiatric: normal affect, normal mood. Skin: Dry, intact, warm. Normal color. No rashes. - Assessment and Plan (1) Abscess Current Visit: Yes Status: Acute Location: RLE. Causative organism: unclear. Intraoperative cultures positive for gram-negative rods, final ID and sensitivities pending. CT of the RLE showed multiple superficial abscess in the posterior medial right lower extremity. No SIRS criteria. Blood cultures drawn 10/29/18 at [facility] are NGTD x 2 sets. Repeat blood cultures drawn here 10/30/18 are no growth to date x 2 sets. Vascular surgery consult a due to concern that this was at the site of the patient's prior saphenous vein harvesting. Status post I&D of the right lower extremity abscess 10/30/[address] Frank. Operative note reviewed. Intraoperative cultures are positive for gram-negative rods. Final ID and sensitivities pending. Currently on cefepime and Flagyl. Vancomycin discontinued by the primary team this morning. SNOMED Code(s): 486913979 (2) Cellulitis of leg, right Current Visit: No Status: Acute Location: Right lower extremity. Chronic, recurring. Causative organism: Unclear. The patient likely has an element of venous stasis that is contributing to his recurrent cellulitis. Improved per patient report. Currently on cefepime and Flagyl. SNOMED Code(s): 168288859 (3) Obesities, morbid Current Visit: No Status: Chronic SNOMED Code(s): 738586649 (4) Atrial fibrillation Current Visit: Yes Status: Chronic Qualifiers: Atrial fibrillation type: paroxysmal Qualified Code(s): I48.0 - Paroxysmal atrial fibrillation SNOMED Code(s): 65470668 (5) Seizure disorder Current Visit: Yes Status: Chronic SNOMED Code(s): 478834163 (6) Coronary artery disease Current Visit: Yes Status: Chronic Status post CABG, aortic aneurysm repair, and AVR 4 months ago at [facility]. Qualifiers: Coronary Disease-Associated Artery/Lesion type: [place] artery [place] vs. transplanted heart: [place] heart Associated angina: without angina Qualified Code(s): I25.10 - Atherosclerotic heart disease of [place] coronary artery without angina pectoris SNOMED Code(s): 85390063 (7) Drug allergy, antibiotic Current Visit: Yes Status: Acute PCN - as a child. Tolerating cefepime without a problem. SNOMED Code(s): 561607081921895 - Recommendations Recommendations: Await blood cultures to finalize. Await intraoperative cultures to finalize. Wound care per the vascular team. Continue cefepime 2 g IV every 12 hours. Continue flagyl 500mg PO TID. Duration of treatment depends on the clinical picture. Monitor renal function for drug toxicity and does just antibiotics. Consult Discharge Plan - Plan Instructions: Atrial Fibrillation (DC), Cellulitis (DC) Referrals: Lela Frank [Non-Partnered Physician] - OriJefry covarrubias MD [Partnered Physician] - Shanthi Mccollum [Primary Care Provider] - Prescriptions: Ciprofloxacin [Cipro] 500 mg PO BID 3 Days #6 tablet - Attending Attestation I have personally performed a face to face evaluation on this patient. I have reviewed and agree with the care plan. History and Exam by me shows: Assessment and plan: 1.Abscess right lower extremity causative organism clear 2.Cellulitis of the right lower extremity 3.Morbid obesity 4.History of CVA 5.Seizure disorder 6.Heart disease 7.Status post bovine aortic valve replacement 8.Penicillin allergy tolerating cefepime Recommendations: Await cultures to finalize. Continue cefepime 2 g IV every 12 hours Continue Flagyl 500 3 times a day Duration of treatment depends on clinical picture Monitor labs and for drug toxicity
--- NOTE | 2018-11-01 12:31 | Internal Med Progress Note ---
Hospitalist Progress Note - Encounter Date of Encounter: 11/01/18 Time of Encounter: 10:45 - Subjective Interval History: Patient reports significant improvement in R leg discomfort. No fever/chills or N/V. Wants to know when he can be discharged. - Exam Vitals: Temp Pulse Resp BP Pulse Ox 97.4 F L 56 18 157/81 94 11/01/18 11:00 11/01/18 11:00 11/01/18 11:00 11/01/18 11:00 11/01/18 11:00 Exam: General: In no acute distress. Morbidly obese Respiratory exam: CTAB. no accessory muscle use, rales, rhonchi, wheezes Cardiovascular exam: RRR, +S1, +S2. no murmur, gallop, rubs. GI/Abdominal exam: Non-tender, Non-distended, normal bowel sounds, soft, no peritoneal signs. Extremities exam: Rt LE with GAGE wrap and bandage. Significant improvement in erythema noted compared on markings. Neurological exam: CN II-XII intact, AO X3, no focal deficits. - Assessment and Plan (1) Abscess Current Visit: Yes Status: Acute Assessment and Plan: following CABG in 06/2018 initially concerned for intra-articular involvement with hx of R TKR. Appreciate ortho consult, successful aspiration of seroma from medial R knee s/p I&D on 10/30 of the abscess by vascular surgery, wound culture growing GNR will d/c vanc, continue cefepime/flagyl ID input appreciated (2) Atrial fibrillation Current Visit: Yes Status: Chronic Assessment and Plan: Coumadin resumed postop, INR 1.8 noted to have sinus bradycardia in the range of mid 40s-50s. Will hold off bb (3) Seizure disorder Current Visit: Yes Status: Chronic Assessment and Plan: on keppra (4) Coronary artery disease Current Visit: Yes Status: Chronic Assessment and Plan: s/p CABG ASA, statin bb on hold as above (5) CKD (chronic kidney disease) stage 3, GFR 30-59 ml/min Current Visit: Yes Status: Chronic Assessment and Plan: Although her Cr was as low as 0.98, after reviewing the trend since 016, it appears that her baseline Cr is around 1.1-1.2 suspect underlying CKD 3, follow up with Nephrology as outpatient avoid nephrotoxins, renally dosed abx (6) Obesities, morbid Current Visit: No Status: Chronic Assessment and Plan: BMI 43.3 lifestyle modifications emphasized DVT Prophylaxis: on Coumadin - Time Spent with Patient Total time spent is greater than 50% in coordination of care (as documented) at patient's floor/unit and/or counseling patient: 25 - 35 minutes Internal Medicine: Result - Labs CBC & Chem 7: 10/31/18 05:39 11/01/18 04:31 Labs: BMP 11/01/18 04:31 Sodium 141 Potassium 4.2 Chloride 111 H Carbon Dioxide 25 BUN 33 H Creatinine 1.34 H Glucose 121 H Calcium 8.8 - ABG Interpretation ABG results: PT/INR, D-dimer PT 19.9 Seconds (9.4-12.1) H 11/01/18 04:31 Consult Discharge Plan - Plan Referrals: Shanthi Mccollum [Primary Care Provider] - (2) Atrial fibrillation Qualifiers: Atrial fibrillation type: paroxysmal Qualified Code(s): I48.0 - Paroxysmal atrial fibrillation (4) Coronary artery disease Qualifiers: Coronary Disease-Associated Artery/Lesion type: [place] artery [place] vs. transplanted heart: [place] heart Associated angina: without angina Qualified Code(s): I25.10 - Atherosclerotic heart disease of [place] coronary artery without angina pectoris
[2018-11-01] MEDS ORDERED: *HR* Warfarin 5 MG TABLET PO ONE (18:00)
[2018-11-01] MEDS: Aspirin Enteric Coated 81 MG Tablet PO SCH (20:48)
[2018-11-02] MEDS: Cefepime HCl 2,000 MG in Water for inj. (sterile) 20 ML 20 ML IVP SCH (04:06)
[2018-11-02 06:47] LABS: INR 1.7; Prothrombin Time 19.1 Seconds (9.4-12.1)
[2018-11-02 06:57] LABS: BUN/Creatinine Ratio 26 (6-26); Blood Urea Nitrogen 36 mg/dL (8-23); Calcium 8.4 mg/dL (8.6-10.3); Carbon Dioxide 26 mEq/L (23-29); Chloride 111 mEq/L (98-107); Glucose 104 mg/dL (70-105); Osmolality,Calculated 305 (280-300); Potassium 4.1 mEq/L (3.5-5.1); Sodium 143 mEq/L (136-145); eGFR For African Americans > 60 (> 60); eGFR For Non-African Americans 51 (> 60)
[2018-11-02] MEDS: levETIRAcetam 250 MG TABLET PO SCH (08:24)
[2018-11-02] MEDS: metroNIDAZOLE 500 MG TABLET PO SCH (08:24)
--- NOTE | 2018-11-02 09:52 | Discharge Summary ---
- NOTES TO OUTPATIENT PROVIDER Notes to Outpatient Provider: Follow-up with vascular surgery as outpatient Orders not resulted at time of discharge: Pending orders 10/29/18 04:21 EKG [ECG 12 lead ECG] [ECG] Routine 10/29/18 07:24 Culture,Wound [RM] Routine 10/30/18 08:34 Culture,Blood [BC] Stat 10/30/18 16:31 Culture,Anaerobic [RM] Routine Date of Encounter: 11/02/18 Time of Encounter: 08:00 - Discharge Diagnosis (1) Abscess Priority: Primary Status: Acute (2) Atrial fibrillation Priority: Secondary Status: Chronic Qualifiers: Atrial fibrillation type: paroxysmal Qualified Code(s): I48.0 - Paroxysmal atrial fibrillation (3) Seizure disorder Priority: Secondary Status: Chronic (4) Coronary artery disease Priority: Secondary Status: Chronic Qualifiers: Coronary Disease-Associated Artery/Lesion type: [place] artery [place] vs. transplanted heart: [place] heart Associated angina: without angina Qualified Code(s): I25.10 - Atherosclerotic heart disease of [place] coronary artery wi thout angina pectoris (5) CKD (chronic kidney disease) stage 3, GFR 30-59 ml/min Priority: Secondary Status: Chronic (6) Obesities, morbid Priority: Secondary Status: Chronic Hospital course: Mr. Post is a 63 year old male with history of A. fib on Coumadin, recent CABG, seizure d/o, who was admitted for right lower extremity abscess/cellulitis on the same limb where saphenous vein graft harvesting was performed at the time of CABG. Underwent I&D by vascular surgery on 10/30 uneventfully. THere was also a concern for possible intra-articular involvement of R knee for which orthopedic surgery evaluated the patient. He had needle aspiration performed on the medial sofit tissue fluid of the R knee which contained serous fluid and it was deemed that the finding was consistent with seroma. He clinically improved on broad spectrum abx and wound culture from I&D came back for Morganella resistant to PCN and cefazolin. He will be discharged on a total of 7 days of abx with the rest of the course to be completed with PO Cipro. Of note, he was noted to have fluctuating Cr during his admission and appears to have CKD stage III. SCript for repeat BMP in 5 days was provided with outpatient nephrology follow up. Discharge discussed with: patient, nurse - Time Spent with Patient Total time spent providing and/or coordinating discharge services: 29 mins - Discharge Medications Prescriptions: New Ciprofloxacin [Cipro] 500 mg PO BID 3 Days #6 tablet Continued Furosemide [Lasix] 40 mg PO DAILY Sennosides [Senna] 8.6 mg PO BID PRN PRN Reason: Constipation Potassium Chloride [Klor-Con 10] 10 meq PO DAILY Pantoprazole Sodium [Protonix] 20 mg PO DAILY Metoprolol [Lopressor] 25 mg PO BID LevETIRAcetam [Keppra] 500 mg PO BID Aspirin [Lo-Dose Aspirin EC] 81 mg PO HS Warfarin [Coumadin] 5 mg PO 1800 Atorvastatin Calcium [Lipitor] 80 mg PO HS Home Medications: Furosemide [Lasix] 40 mg PO DAILY 08/23/15 [History] Aspirin [Lo-Dose Aspirin EC] 81 mg PO HS 10/29/18 [History] LevETIRAcetam [Keppra] 500 mg PO BID 10/29/18 [History] Metoprolol [Lopressor] 25 mg PO BID 10/29/18 [History] Pantoprazole Sodium [Protonix] 20 mg PO DAILY 10/29/18 [History] Potassium Chloride [Klor-Con 10] 10 meq PO DAILY 10/29/18 [History] Sennosides [Senna] 8.6 mg PO BID PRN 10/29/18 [History] Warfarin [Coumadin] 5 mg PO 1800 10/29/18 [History] Atorvastatin Calcium [Lipitor] 80 mg PO HS 10/30/18 [History] Ciprofloxacin [Cipro] 500 mg PO BID 3 Days #6 tablet 11/02/18 [Rx] Allergies/Adverse Reactions: Allergy/AdvReac Type Severity Reaction Status Date / Time Penicillins [PCN] Allergy Hives Verified 10/30/18 13:40 Date of admission: 10/29/18 01:34 Primary care physician: Shanthi Mccollum Consults: 10/29/18 02:02 Consult to Pastoral Services [CONS] Routine Comment: 10/29/18 04:15 Consult to Orthopedic Surgery [CONS] Routine Consulting Provider: [facility] Reason for Consult: MARIA TERESA marcelino Call Completed: Yes 10/29/18 09:03 Consult to Vascular Surgery [CONS] Routine Consulting Provider: Vascular Surgery [place] Reason for Consult: Recent saphenous vein graft harvest with seroma and infection. Time Notified: 08:30 Call Completed: Yes 10/30/18 08:11 Consult to Infectious Diseases [CONS] Routine Consulting Provider: Infectious Disease [facility] Reason for Consult: cellulitis, abscess, AVR Call Completed: No - Constitutional Vitals: Temp Pulse Resp BP Pulse Ox 98.3 F 60 18 152/83 94 11/02/18 06:40 11/02/18 06:40 11/02/18 06:40 11/02/18 06:40 11/02/18 06:40 General appearance: Present: A&O X 3, pleasant, no acute distress Exam: General: In no acute distress. Morbidly obese Respiratory exam: CTAB. no accessory muscle use, rales, rhonchi, wheezes Cardiovascular exam: RRR, +S1, +S2. no murmur, gallop, rubs. GI/Abdominal exam: Non-tender, Non-distended, normal bowel sounds, soft, no peritoneal signs. Extremities exam: Rt LE with GAGE wrap and bandage. Significant improvement in erythema noted compared on markings. Neurological exam: CN II-XII intact, AO X3, no focal deficits. - Patient Status Disposition: Home, Self-Care Condition: Fair Functional capacity at discharge: independent ambulation Overall status at discharge: patient is progressing back to baseline - Discharge Instructions Instructions: Atrial Fibrillation (DC), Cellulitis (DC) Follow Up With: Shanthi Mccollum [Primary Care Provider] - Lela Frank [Non-Partnered Physician] - Jefry Trinh MD [Partnered Physician] - - Diet and Activity Activity: resume usual activities as tolerated Diet: diabetic diet
--- NOTE | 2018-11-02 10:37 | Infectious Disease Progress No ---
ID Progress Note Date of Encounter: 11/02/18 Time of Encounter: 10:20 - Subjective Subjective: Patient seen and examined sitting up in the bedside chair. at bedside. No acute events noted overnight. Patient states overall he feels well. Denies fevers, chills, rigors. Denies chest pain, shortness of breath, or cough. Denies nausea, vomiting, diarrhea, constipation. Denies abdominal pain or urinary complaints. Denies oral thrush or skin rashes. Reports BM yesterday. Reports minimal pain at the surgical site. States overall his leg is markedly improved compared to when he was admitted. - Objective CBC & Chem 7: 10/31/18 05:39 11/02/18 05:48 - Exam Vitals: Temp Pulse Resp BP Pulse Ox 98.3 F 60 18 152/83 94 11/02/18 06:40 11/02/18 06:40 11/02/18 06:40 11/02/18 06:40 11/02/18 06:40 Exam: Head: Atraumatic, normal inspection, normocephalic. Eye: EOMI, PERRLA, no scleral icterus noted. ENT: Mucous membranes moist. No odontogenic infection noted. Neck: Normal inspection, no meningismus. Respiratory: Clear to auscultation. No rales, respiratory distress, rhonchi, or wheezes noted. Cardiovascular: Regular rate and rhythm, S1 and S2 audible. No murmurs, rubs, or gallops. GI: Soft, obese, normal bowel sounds. Extremities:No joint swelling noted. RLE 1+ edema. RLE dressing C/D/I. RLE surgical site noted to the anteromedial aspect of the right lower leg. Wound bed beefy red with scant slough. No surrounding erythema, warmth, fluctuance, or tenderness. Neurological: Alert, oriented 3, no focal deficits. Psychiatric: normal affect, normal mood. Skin: Dry, intact, warm. Normal color. No rashes. - Assessment and Plan (1) Abscess Status: Acute Location: RLE. Causative organism: M. morgannii. CT of the RLE showed multiple superficial abscess in the posterior medial right lower extremity. No SIRS criteria. Blood cultures drawn 10/29/18 at [facility] are NGTD x 2 sets. Repeat blood cultures drawn here 6/16/19 are no growth to date x 2 sets. Vascular surgery consult a due to concern that this was at the site of the patient's prior saphenous vein harvesting. Status post I&D of the right lower extremity abscess 10/30/[address] Frank. Operative note reviewed. In traoperative cultures as above. Currently on cefepime and Flagyl. SNOMED Code(s): 400505357 (2) Cellulitis of leg, right Status: Acute Location: Right lower extremity. Chronic, recurring. Causative organism: M. morgannii. The patient likely has an element of venous stasis that is contributing to his recurrent cellulitis. Improved per patient report. Currently on cefepime and Flagyl. SNOMED Code(s): 357348325 (3) Obesities, morbid Status: Chronic SNOMED Code(s): 722449401 (4) Atrial fibrillation Status: Chronic Qualifiers: Atrial fibrillation type: paroxysmal Qualified Code(s): I48.0 - Paroxysmal atrial fibrillation SNOMED Code(s): 23854189 (5) Seizure disorder Status: Chronic SNOMED Code(s): 773436749 (6) Coronary artery disease Status: Chronic Status post CABG, aortic aneurysm repair, and AVR 4 months ago at [facility]. Qualifiers: Coronary Disease-Associated Artery/Lesion type: [place] artery [place] vs. transplanted heart: [place] heart Associated angina: without angina Qualified Code(s): I25.10 - Atherosclerotic heart disease of [place] coronary artery without angina pectoris SNOMED Code(s): 55582653 (7) Drug allergy, antibiotic Status: Acute PCN - as a child. Tolerating cefepime without a problem. SNOMED Code(s): 575267259499985 - Recommendations Recommendations: Await blood cultures to finalize. Wound care per the vascular team. It does not appear that the patient has been seen by Vascular since surgery. Continue cefepime 2 g IV every 12 hours. Continue flagyl 500mg PO TID. Duration of treatment depends on the clinical picture, but likely 14 days post- op. Recommend switching to Bactrim DS 1 tab PO BID when ready for discharge. Monitor renal function for drug toxicity and does just antibiotics. Consult Discharge Plan - Plan Instructions: Atrial Fibrillation (DC), Cellulitis (DC) Additional Instructions: Follow-up appointments: If there is not an appointment listed below, please call your physician and schedule a follow-up appointment. If you have congestive heart failure and your symptoms return, make an appointment with your physician. Medication List: Carry an up to date list of medications you are taking at all time. We have given you an updated medication list including any new medications that you have been prescribed. Please provide that list to your primary provider Symptoms: If your condition changes or you experience any of the following symptoms, notify your physician immediately: Unusual or worsening pain, fever, persistent nausea and vomiting, bleeding, increase in swelling (especially in your legs), sudden weight gain, extreme dizziness, chest pain, increased drainage or redness from a wound or incision. Go to the emergency department if you experience a problem with breathing. Weights: If you have a history of swelling or shortness of breath, weigh yourself daily and notify your physician if you have a weight gain of two or more pounds in one day or 5 or more pounds in a week. If you experience any of the warning signs for stroke: Sudden numbness or weakness of the face, arm or leg; especially on one side of the body, sudden confusion, trouble speaking or understanding, sudden trouble seeing in one or both eyes, sudden trouble walking, dizziness, loss of balance or coordination, sudden sever headache with no cause; Call 911 or go to the emergency room. Stroke is a medical emergency. Some risk factors for stroke: Age, cigarette smoking, diabetes, excessive alcohol consumption, family history, high blood pressure, overweight, physical inactivity, prior stroke, heart attack, diagnosis of carotid artery stenosis or other artery disease. If you smoke, STOP: Smoking or tobacco use significantly increases your risk of heart and lung disease. Your chance of disease greatly increases if you continue to smoke. For more information, call the [place] tobacco quit line for smoking cessation - ( ) Change dressing daily. [place] with cleanser, apply silvasorb gel and cover with allevyn foam dressing. Keep dressing dry and intact. Continue until follow up appointment with Dr. Mccord. Referrals: Lela Frank [Non-Partnered Physician] - Jefry Trinh MD [Partnered Physician] - Mele Mccord MD [Partnered Physician] - 11/23/18 1:30 pm Shanthi Mccollum [Primary Care Provider] - 11/04/18 8:40 am (with Kiana Garcia in the same office) Prescriptions: Sulfamethoxazole/Trimeth DS [Bactrim DS] 1 each PO BID 10 Days #20 tablet - Attending Attestation I have personally performed a face to face evaluation on this patient. I have reviewed and agree with the care plan. History and Exam by me shows: Assessment and plan: 1.Abscess right lower extremity causative organism clear 2.Cellulitis of the right lower extremity 3.Morbid obesity 4.History of CVA 5.Seizure disorder 6.Heart disease 7.Status post bovine aortic valve replacement 8.Penicillin allergy tolerating cefepime Recommendations: Await blood cultures to finalize. Wound care per the vascular team. It does not appear that the patient has been seen by Vascular since surgery. Continue cefepime 2 g IV every 12 hours. Continue flagyl 500mg PO TID. Duration of treatment depends on the clinical picture, but likely 14 days post- op. Recommend switching to Bactrim DS 1 tab PO BID when ready for discharge. Monitor renal function for drug toxicity and does just antibiotics.
[2018-11-02] MEDS ORDERED: Silvasorb 44.4 ML TUBE TP SCH (14:30)
[2018-11-02 15:48] VITALS: BP 146/77
[2018-11-02] MEDS ORDERED: *HR* Warfarin 5 MG TABLET PO ONE (18:00)
== END 2018-11-02 16:35 | disposition home or self-care (01) ==
LOC: 3NENU → SUATTDRO 10-29 01:34
PROVIDERS: ADMIT Internal Medicine; ATTEND Internal Medicine

== ENCOUNTER 2018-12-05 16:22 | Inpatient (IN) ==
[2018-12-05] MEDS ORDERED: Isovue-370 500 ML BOTTLE IVP ONE (17:37)
--- NOTE | 2018-12-05 17:48 | Emergency Department Note ---
Disposition Clinical Impression: Seroma Cellulitis Qualifiers: Site of cellulitis: extremity Site of cellulitis of extremity: lower extremity Laterality: right Qualified Code(s): L03.115 - Cellulitis of right lower limb Disposition: Admitted As Inpatient Condition: Good Time of Disposition: 20:31 General Adult HPI - General Chief complaint: ED Extremity Problem,Nontraumatic Stated complaint: RLE pain, swelling, r/o DVT Time Seen by Provider: 12/05/18 17:19 Source: patient, family Mode of arrival: ambulatory Limitations: no limitations Nursing Notes Reviewed: Yes Vital Signs Reviewed: Yes - History of Present Illness HPI Narrative: 63 year old male presents to the ED with complaints of RLE swelling, redness, and warmth. and carrie states that he has been dealing with cellulitis issues in this leg particularly since 2016 when a box of frozen food fell on him from work. He states he has never had MRSA and is not a diabetic. Carrie most recently had a CABG done at [facility] earlier this which require a vein from his right leg which he also has orthotpedic hardware in this leg as well. A few months ago after the CABG he developed an abscess in the RLE where the vein had been stripped and it was drained in the OR and ortho was also involved as there was concern that the swelling and infection may have infected the hardware as well. Carrie states that he was suppose to followup with wound care but has been doing the wuond care at home and that although the area looks better form the abscess that had been there earlier it is still having yellowish purleunt discharge and in the past three days swelling has increased up into his left and medially into his upper thigh and his RLE is much larger than the left. He is now having difficult with bending his knee. Concern is for another cellutlis presenation and possible hardware involvement. Carrie was also concserned about a DVT. Denies chest pain or shortness of breath at this time. He has howwver been experincing incresed chills at home withou nausea or vomitting. Pain Scale: 6 - Related Data Home Medications Medication Instructions Recorded Confirmed Furosemide [Lasix] 40 mg PO DAILY 08/23/15 12/05/18 Aspirin [Lo-Dose Aspirin EC] 81 mg PO HS 10/29/18 12/05/18 LevETIRAcetam [Keppra] 500 mg PO BID 10/29/18 12/05/18 Metoprolol [Lopressor] 25 mg PO BID 10/29/18 12/05/18 Pantoprazole Sodium [Protonix] 20 mg PO DAILY 10/29/18 12/05/18 Potassium Chloride [Klor-Con 10] 20 meq PO DAILY 10/29/18 12/05/18 Sennosides [Senna] 8.6 mg PO BID PRN 10/29/18 12/05/18 Warfarin [Coumadin] 5 mg PO 1800 10/29/18 12/05/18 Atorvastatin Calcium [Lipitor] 80 mg PO HS 10/30/18 12/05/18 Silvasorb 0 ml .ROUTE DAILY 12/05/18 12/05/18 Allergies Allergy/AdvReac Type Severity Reaction Status Date / Time Penicillins [PCN] Allergy Hives Verified 10/30/18 13:40 Constitutional: Reports: chills. Denies: fever, weakness, weight change Eyes: Denies: eye pain, eye discharge, vision change ENT ED: Denies: ear pain, throat pain, dental pain, hearing loss, epistaxis, congestion, dysphagia Cardiovascular: Denies: chest pain, palpitations, dyspnea on exertion, edema, syncope Respiratory: Denies: cough, dyspnea, wheezes, hemoptysis, stridor Gastrointestinal: Denies: abdominal pain, nausea, vomiting, diarrhea, constipation, hematemesis, melena, hematochezia Genitourinary: Denies: urgency, dysuria, frequency, hematuria Musculoskeletal: Reports: as per HPI, joint swelling. Denies: back pain, neck pain, arthralgia, myalgia Integumentary: Reports: as per HPI. Denies: rash, abrasion, lesions Neurological: Denies: headache, weakness, numbness, paresthesias, confusion, abnormal gait, vertigo Psychiatric: Denies: anxiety, depression, suicidal thoughts, homicidal thoughts, auditory hallucinations, visual hallucinations Endocrine: Denies: fatigue Hematological/Lymphatic: Denies: easy bleeding, easy bruising Allergic/Immunologic: Denies: facial swelling, urticaria Past Medical History - Past Medical History Medical history: Reports: aortic aneurysm, atrial fibrillation, hyperlipidemia, hypertension, other Surgical history: Reports: cholecystectomy, coronary bypass (CABG), other Psychiatric history: Reports: no psych history - Social History Smoking Status: Never smoker Smokeless Tobacco Status: No Alcohol use: Reports: none Drug use: Reports: none Physical Exam - General Limitations: no limitations General appearance: alert, in no apparent distress, obese - Head Head exam: atraumatic, normocephalic, normal inspection - Eye Eye exam: Present: normal appearance, PERRL, EOMI - Expanded Eye Exam Pupils: Bilateral: reactive - ENT ENT exam: normal exam, normal oropharynx, mucous membranes moist - Expanded ENT Exam External ear exam: Present: normal external inspection Mouth exam: Present: normal external inspection Teeth exam: Present: normal inspection Throat exam: Present: normal inspection - Neck Neck exam: Present: normal inspection, full ROM, trachea midline - Chest Chest inspection: Present: normal inspection, symmetric chest wall rise - Respiratory Respiratory exam: Present: normal lung sounds bilaterally - Cardiovascular Cardiovascular exam: Present: regular rate, normal rhythm, normal heart sounds - Abdominal Exam Abdominal exam: Present: soft, Non-Tender. Absent: tenderness, distention, guarding, rebound, rigidity - Extremities Exam Extremities exam: Present: normal inspection, full ROM. Absent: tenderness, pedal edema - Expanded Upper Extremity Exam Shoulder exam: Present: normal inspection, full ROM Arm exam: Present: normal inspection, full ROM Elbow exam: Present: normal inspection, full ROM Forearm/Wrist exam: Present: normal inspection, full ROM Hand exam: Present: normal inspection, full ROM Vascular exam: Normal: capillary refill, radial pulse - Expanded Lower Extremity Exam Hip/Pelvis exam: Present: normal inspection, full ROM Upper leg exam: Present: tenderness (right), swelling (right), erythema. Absent: full ROM (difficuty with flexion and extension on the right) 1 - considerably larger than the left, with streaking into the upper right thigh with streaking to the ankle. 2 - linear horizontal healing laceartion with purluent yelllow discharge Knee exam: Absent: full ROM (dificulty with F/E on the right knee) Lower leg exam: Present: tenderness (right), swelling (right), erythema (right) Ankle exam: Present: normal inspection, full ROM Foot/toe exam: Present: normal inspection, full ROM Neurovascular/Tendon exam: Absent: motor deficit, sensory deficit, tendon deficit - Back Exam Back exam: Present: normal inspection, full ROM. Absent: tenderness - Neurological Exam Neurological exam: Present: alert, oriented X3 - Expanded Neurological Exam Patient oriented to: Present: person, place, time Coma Scale Eye Opening: Spontaneous Coma Scale Motor Response: Obeys Commands Coma Scale Verbal Response: Oriented Coma Scale Total: 15 - Psychiatric Psychiatric exam: Present: normal affect, normal mood - Skin Skin exam: Present: warm, dry, intact, normal color Course Course Narrative: plan is to workup the infectious workup and rlule out DVT with US. I have started vanc to broad coverage and will liely add clindamycin or cefepime. plan is to admit - Consultations Consultation #1: discusssed case with Dr. Islas who will see in consult but recommends making vascular primary. Time: 20:30 Consultation #2: dVT US is negtive Time: 20:31 Consultation #3: discussed case with Dr. Erickson and he accepts patien to his service. Time: 20:45 Vital Signs Temperature 99.5 F 12/05/18 16:26 Pulse Rate 65 12/05/18 16:26 Respiratory Rate 20 12/05/18 16:26 Blood Pressure 162/84 12/05/18 16:26 O2 Sat by Pulse Oximetry 94 12/05/18 16:26 Temperature 99.5 F 12/05/18 17:54 Pulse Rate 78 12/05/18 20:17 Respiratory Rate 16 12/05/18 20:17 Blood Pressure 123/71 12/05/18 20:17 O2 Sat by Pulse Oximetry 98 12/05/18 20:17 Oxygen Delivery Oxygen Delivery Room Air Medical Decision Making - Medical Records Medical records reviewed: Yes I reviewed the patient's medical records. - Lab Data Lab results reviewed: Yes I reviewed the patient's lab results. Result diagrams: 12/05/18 17:39 12/05/18 17:39 Lab Results 12/05/18 12/05/18 12/05/18 Range/Units 17:39 17:39 17:39 WBC 17.1 H (4.3-11.1) K/mcL RBC 4.55 (4.19-5.50) M/mcL Hgb 12.7 L (12.9-16.9) g/dL Hct 39.8 (37.5-50.1) % MCV 87.5 (83.0-100.0) fL MCH 27.9 L (28.0-33.3) pg MCHC 31.9 (31.6-35.5) g/dL RDW 16.7 H (11.5-14.5) % Plt Count 146 (140-400) K/mcL MPV 10.4 (9.4-12.4) fL Immature Gran % 0.7 (0-4) % Seg Neutrophils % 80.2 % Lymphocytes % 8.6 % Monocytes % 10.1 % Eosinophils % 0.2 % Basophils % 0.2 % Neutrophils # 13.7 H (1.6-8.9) K/mcL Lymphocytes # 1.5 (0.6-4.6) K/mcL Monocytes # 1.7 H (0.0-1.3) K/mcL Eosinophils # 0.0 (0.0-0.6) K/mcL Basophils # 0.0 (0.0-0.2) K/mcL PT 31.2 H (9.4-12.1) Seconds INR 2.7 APTT 53.4 H (26.0-36.0) Seconds Sodium 138 (136-145) mEq/L Potassium 3.7 (3.5-5.1) mEq/L Chloride 102 (98-107) mEq/L Carbon Dioxide 27 (23-29) mEq/L BUN 35 H (8-23) mg/dL Creatinine 1.62 H (0.70-1.30) mg/dL Est GFR ( Amer) 52 L (> 60) Est GFR (Non-Af Amer) 43 L (> 60) BUN/Creatinine Ratio 22 (6-26) Glucose 116 H (70-105) mg/dL Calculated Osmolality 295 (280-300) Lactic Acid (0.5-2.2) mmol/L Calcium 8.7 (8.6-10.3) mg/dL Phosphorus 2.1 L (2.7-4.5) mg/dL Magnesium 1.7 (1.6-2.6) mg/dL Total Bilirubin 1.5 H (0.3-1.0) mg/dL Direct Bilirubin 0.5 H (0.0-0.2) mg/dL Indirect Bilirubin 1.0 (0.0-1.2) mg/dL AST 22 (13-39) Units/L ALT 18 (7-52) Units/L Alkaline Phosphatase 115 H (34-104) Units/L Troponin I < 0.03 (< 0.04) ng/mL Serum Total Protein 6.5 (6.4-8.9) g/dL Albumin 3.6 (3.5-5.7) g/dL Globulin 2.9 (2.4-3.5) g/dL Albumin/Globulin Ratio 1.2 (1.1-2.2) 12/05/18 Range/Units 17:39 WBC (4.3-11.1) K/mcL RBC (4.19-5.50) M/mcL Hgb (12.9-16.9) g/dL Hct (37.5-50.1) % MCV (83.0-100.0) fL MCH (28.0-33.3) pg MCHC (31.6-35.5) g/dL RDW (11.5-14.5) % Plt Count (140-400) K/mcL MPV (9.4-12.4) fL Immature Gran % (0-4) % Seg Neutrophils % % Lymphocytes % % Monocytes % % Eosinophils % % Basophils % % Neutrophils # (1.6-8.9) K/mcL Lymphocytes # (0.6-4.6) K/mcL Monocytes # (0.0-1.3) K/mcL Eosinophils # (0.0-0.6) K/mcL Basophils # (0.0-0.2) K/mcL PT (9.4-12.1) Seconds INR APTT (26.0-36.0) Seconds Sodium (136-145) mEq/L Potassium (3.5-5.1) mEq/L Chloride (98-107) mEq/L Carbon Dioxide (23-29) mEq/L BUN (8-23) mg/dL Creatinine (0.70-1.30) mg/dL Est GFR ( Amer) (> 60) Est GFR (Non-Af Amer) (> 60) BUN/Creatinine Ratio (6-26) Glucose (70-105) mg/dL Calculated Osmolality (280-300) Lactic Acid 1.2 (0.5-2.2) mmol/L Calcium (8.6-10.3) mg/dL Phosphorus (2.7-4.5) mg/dL Magnesium (1.6-2.6) mg/dL Total Bilirubin (0.3-1.0) mg/dL Direct Bilirubin (0.0-0.2) mg/dL Indirect Bilirubin (0.0-1.2) mg/dL AST (13-39) Units/L ALT (7-52) Units/L Alkaline Phosphatase (34-104) Units/L Troponin I (< 0.04) ng/mL Serum Total Protein (6.4-8.9) g/dL Albumin (3.5-5.7) g/dL Globulin (2.4-3.5) g/dL Albumin/Globulin Ratio (1.1-2.2) - Radiology Data Radiology results reviewed: Yes I reviewed the patient's radiology results. - EKG Data EKG #1 EKG attestation: Yes I reviewed and interpreted this EKG. EKG results narrative: NSR with rate of 77. NO STEMI. normal intervals. no change from 10/29/18. 1809
[2018-12-05 18:01] LABS: Basophils % 0.2 %; Eosinophils % 0.2 %; Hematocrit 39.8 % (37.5-50.1); Hemoglobin 12.7 g/dL (12.9-16.9); Immature Granulocytes % 0.7 % (0-4); Lymphocytes # 1.5 K/mcL (0.6-4.6); Lymphocytes % 8.6 %; Mean Corpuscular HGB Conc 31.9 g/dL (31.6-35.5); Mean Corpuscular Hemoglobin 27.9 pg (28.0-33.3); Mean Corpuscular Volume 87.5 fL (83.0-100.0); Mean Platelet Volume 10.4 fL (9.4-12.4); Monocytes # 1.7 K/mcL (0.0-1.3); Monocytes % 10.1 %; Neutrophils # 13.7 K/mcL (1.6-8.9); Platelet Count 146 K/mcL (140-400); Red Blood Count 4.55 M/mcL (4.19-5.50); Red Cell Distribution Width 16.7 % (11.5-14.5); Segmented Neutrophils % 80.2 %; White Blood Count 17.1 K/mcL (4.3-11.1)
[2018-12-05] MEDS: 0.9 % Sodium Chloride 1,000 ML IVC SCH ×2 (18:21→20:10)
[2018-12-05 18:26] LABS: Alanine Aminotransferase 18 Units/L (7-52); Albumin 3.6 g/dL (3.5-5.7); Albumin/Globulin Ratio 1.2 (1.1-2.2); Alkaline Phosphatase 115 Units/L (34-104); Aspartate Amino Transferase 22 Units/L (13-39); BUN/Creatinine Ratio 22 (6-26); Bilirubin,Direct 0.5 mg/dL (0.0-0.2); Bilirubin,Total 1.5 mg/dL (0.3-1.0); Blood Urea Nitrogen 35 mg/dL (8-23); Calcium 8.7 mg/dL (8.6-10.3); Carbon Dioxide 27 mEq/L (23-29); Chloride 102 mEq/L (98-107); Globulin 2.9 g/dL (2.4-3.5); Glucose 116 mg/dL (70-105); Magnesium 1.7 mg/dL (1.6-2.6); Osmolality,Calculated 295 (280-300); Phosphorous 2.1 mg/dL (2.7-4.5); Potassium 3.7 mEq/L (3.5-5.1); Sodium 138 mEq/L (136-145); Total Protein 6.5 g/dL (6.4-8.9); Troponin I < 0.03 ng/mL (< 0.04); eGFR For African Americans 52 (> 60); eGFR For Non-African Americans 43 (> 60)
[2018-12-05 18:47] LABS: INR 2.7; Prothrombin Time 31.2 Seconds (9.4-12.1)
[2018-12-05 18:49] LABS: Activated Partial Thrombo Time 53.4 Seconds (26.0-36.0)
[2018-12-05] MEDS ORDERED: Clindamycin 600 MG/50 ML 600 MG/50 ML IV.SOLN IVPB ONE (20:28)
[2018-12-05] MEDS ORDERED: Naloxone 0.4 MG/ML INJ IVP PRN (21:38)
--- NOTE | 2018-12-05 22:28 | Internal Med History&Physical ---
Date of Encounter: 12/05/18 Time of Encounter: 22:27 Internal Medicine - H&P: HPI Chief complaint: leg pain Admitted From: Home Plans for Post Hospital Care: Home History of present illness: Ishmael Post is a 63 year old morbidly obese man suffered a traumatic accident affecting his right leg 3 years ago and since then has had ongoing issues with pain and swelling. In June 2018 he had an aortic valve replacement, ascending aortic aneurysm repair and cardiac bypass with a right saphenous vein graft and in October 2018 he was admitted here with right lower extremity pain, swelling and erythema found to have an abscess requiring or incision and drainage. He was subsequently discharged to complete a short course of antibiotics based on the fluid cultures. As per his his wound never completely healed and has continued to have purulent drainage in spite of the wound care being applied. Over the last few days the swelling of his right leg has increased and it has become more erythematous and the patient has developed chills. The swelling now extends into the superior thigh which is new for him and he has difficulty bending his knee. ET scan done in the ER reviewed by me shows diffuse subcutaneous edema and skin thickening of the right lower extremity as well as a well-circumscribed rim-enhancing fluid collection within the medial soft tissues at the level of the distal femur and knee. Lab work reported a leukocyte count of 17. Orthopedic and vascular surgery services have been consulted and he is admitted for further care. Vitals: Reviewed General: Obese white male lying in bed in no acute distress. Skin: Warm and supple. HEENT: Moist mucous membranes. No conjunctivae pallor. Neck: No lymphadenopathy. No JVD. No carotid bruits. No palpable thyroid. Chest: Normal thoracic expansion. Normal breath sounds. Clear to auscultation. Heart: Irregularly irregular. Abdomen: soft and non-tender to palpation. No peritoneal reaction. Extremities: Right leg is diffusely swollen and tense with a circumferentially erythematous lower leg. 5cm diagonal incision on the medial lower leg draining yellowish fluid and appears to have a purulent bed. Neurological: Awake, alert and oriented to person, place and time. No focal deficits. Psych: Affect appropriate. Assessment/Plan 1. Skin/soft tissue infection: The patient has notable inflammatory signs and a well circumscribed fluid collection with thick christine that could easily be a seroma based on the morphology however given the wall thickening, the acute inflammatory signs and leukocytosis, there is concern for an infectious recurrence. Will keep him on empiric antimicrobials for now with vancomycin and levofloxacin pending surgical intervention for drainage and culturing. 2. Atrial fibrillation: Rate controlled and on warfarin with therapeutic INR. 3. Coronary artery disease: On daily aspirin. 4. Seizure disorder: On levetiracetam. Past Med Surg Social Fam HX - Past Medical History Medical history: aortic aneurysm, atrial fibrillation, hyperlipidemia, hypertension, other Additional medical history: CVAx2 Psychiatric history: no psych history - Past Surgical History Surgical History: cholecystectomy, coronary bypass (CABG), other Additional surgical history: aneurism repair, aortic valve replacement - Social History Smoking Status: Never smoker Smokeless Tobacco Status: No Alcohol use: none Drug use: none - Family History Mother Living Status: Still Living Hx Family Cardiac Disorders: Yes (htn, stents) Hx Family Cancer: Yes (breast ca) Father Living Status: Hx Family Cardiac Disorders: Yes (chf, htn) Hx Family Endocrine Disorder: Yes (dm) Internal Medicine - H&P: Meds Furosemide [Lasix] 40 mg PO DAILY 08/23/15 [History] Aspirin [Lo-Dose Aspirin EC] 81 mg PO HS 10/29/18 [History] LevETIRAcetam [Keppra] 500 mg PO BID 10/29/18 [History] Metoprolol [Lopressor] 25 mg PO BID 10/29/18 [History] Pantoprazole Sodium [Protonix] 20 mg PO DAILY 10/29/18 [History] Potassium Chloride [Klor-Con 10] 20 meq PO DAILY 10/29/18 [History] Sennosides [Senna] 8.6 mg PO BID PRN 10/29/18 [History] Warfarin [Coumadin] 5 mg PO 1800 10/29/18 [History] Atorvastatin Calcium [Lipitor] 80 mg PO HS 10/30/18 [History] Silvasorb 0 ml .ROUTE DAILY 12/05/18 [History] Allergy/AdvReac Type Severity Reaction Status Date / Time Penicillins [PCN] Allergy Hives Verified 10/30/18 13:40 All Systems PM: A 10-system review of systems was performed and is negative for pertinent findings except as documented above in the HPI. - Constitutional Vitals: Temp Pulse Resp BP Pulse Ox 99.4 F 73 18 121/68 93 12/05/18 21:50 12/05/18 21:50 12/05/18 21:50 12/05/18 21:50 12/05/18 21:50 Exam: . Internal Med - H&P Results - Labs CBC & Chem 7: 12/05/18 17:39 12/05/18 17:39 Labs: Short CBC 12/05/18 Range/Units 17:39 WBC 17.1 H (4.3-11.1) K/mcL Hgb 12.7 L (12.9-16.9) g/dL Hct 39.8 (37.5-50.1) % Plt Count 146 (140-400) K/mcL Neutrophils # 13.7 H (1.6-8.9) K/mcL BMP 12/05/18 17:39 Sodium 138 Potassium 3.7 Chloride 102 Carbon Dioxide 27 BUN 35 H Creatinine 1.62 H Glucose 116 H Calcium 8.7 Cardiac Enzymes 12/05/18 Range/Units 17:39 Troponin I < 0.03 (< 0.04) ng/mL Liver Function 12/05/18 Range/Units 17:39 Total Bilirubin 1.5 H (0.3-1.0) mg/dL Direct Bilirubin 0.5 H (0.0-0.2) mg/dL AST 22 (13-39) Units/L ALT 18 (7-52) Units/L Alkaline Phosphatase 115 H (34-104) Units/L Albumin 3.6 (3.5-5.7) g/dL - Impressions ITS Impressions Lower Extremity CT 12/05/18 17:37 IMPRESSION: 1. Diffuse nonspecific subcutaneous edema and skin thickening of the right lower extremity. While findings may reflect longstanding venous stasis or lymph edema, recommend clinical correlation for cellulitis. A few tiny locules of soft tissue gas are identified along the medial soft tissues at the level of the proximal tibia which appears to reside within the epidermis. Findings may be related to ulceration, focal infection, or recent postoperative changes at this site. No underlying fluid collection identified at this site. 2. Well-circumscribed rim enhancing fluid collection within the medial soft tissues at the level of the distal femur and knee similar to comparison CT from October 28, 2018. This fluid demonstrates CT characteristics suggestive of simple fluid and potentially may reflect large seroma. Sterility of the collection is indeterminate on imaging. No gas identified within the collection. 3. No acute osseous abnormality identified. D/ / Kashmir Martinez MD / Kashmir Martinez MD Interpreting Provider: Kashmir Martinez MD - Time Spent With Patient Total time spent is greater than 50% in coordination of care (as documented) at patient's floor/unit and/or counseling patient: Greater than 35 minutes
[2018-12-05] MEDS ORDERED: Acetaminophen 325 MG TABLET PO PRN (22:58)
[2018-12-05] MEDS ORDERED: Ondansetron 4 MG/2 ML VIAL IVP PRN (22:58)
[2018-12-05] MEDS ORDERED: *HR* OxyCODONE Immed Rel 5 MG TABLET PO PRN (22:59)
[2018-12-05] MEDS ORDERED: Sennosides 8.6 MG TABLET PO PRN (22:59)
[2018-12-05] MEDS ORDERED: traMADol 50 MG TABLET PO PRN (22:59)
[2018-12-05] MEDS ORDERED: levoFLOXacin 500 MG/100 ML 500 MG/100 ML BAG IVPB SCH (23:00)
[2018-12-05] MEDS: Ringers Solution, Lactated 1,000 ML IVC SCH (23:50)
[2018-12-06 04:48] LABS: Basophils % 0.3 %; Eosinophils % 0.3 %; Hemoglobin 11.2 g/dL (12.9-16.9); Lymphocytes # 1.1 K/mcL (0.6-4.6); Lymphocytes % 7.7 %; Mean Corpuscular Hemoglobin 27.9 pg (28.0-33.3); Mean Corpuscular Volume 87.3 fL (83.0-100.0); Mean Platelet Volume 9.8 fL (9.4-12.4); Monocytes # 1.6 K/mcL (0.0-1.3); Monocytes % 11.1 %; Neutrophils # 11.6 K/mcL (1.6-8.9); Platelet Count 125 K/mcL (140-400); Red Blood Count 4.01 M/mcL (4.19-5.50); Red Cell Distribution Width 16.6 % (11.5-14.5); Segmented Neutrophils % 79.6 %; White Blood Count 14.5 K/mcL (4.3-11.1)
[2018-12-06 04:56] LABS: Prothrombin Time 33.7 Seconds (9.4-12.1)
[2018-12-06 05:08] LABS: BUN/Creatinine Ratio 22 (6-26); Blood Urea Nitrogen 31 mg/dL (8-23); Calcium 7.9 mg/dL (8.6-10.3); Carbon Dioxide 22 mEq/L (23-29); Chloride 108 mEq/L (98-107); Glucose 110 mg/dL (70-105); Osmolality,Calculated 295 (280-300); Potassium 3.7 mEq/L (3.5-5.1); Sodium 139 mEq/L (136-145); eGFR For African Americans > 60 (> 60); eGFR For Non-African Americans 50 (> 60)
--- NOTE | 2018-12-06 08:36 | Orthopedic Consult Note ---
Date of Encounter: 12/06/18 Time of Encounter: 09:00 Assessment and Plan (1) History of total bilateral knee replacement Current Visit: Yes Status: Chronic History of Present Illness Chief complaint: history b/l tkr HPI: Mr. Post is a 63 year old male pleasant presenting to [facility] for concerns re: abscess and cellulitis to the RLE. Patient is s/p b/l TKR by Dr. Foley in 2009. He states he has had no trouble with either knee until a work injury caused a laceration to the RLE after which he has had issues with cellulitis and difficulty with motion to the RLE. He relates that he had open heart surgery May 2018 and since has had issues in the RLE at the site of the graft harvest. This is his second admission per patient related to graft harvest site - went to [facility] in past. On exam, patient resting comfortably, spouse at bedside. Well healed incisions noted to b/l anterior knees. Swelling, erythema, and open draining site noted to right medial calf. Tender to palpation along edematous area which spans from just above medial malleolus to the mid thigh. His anterior knee appears unaffected and palpation of anterior joint line and patella are nontender. Knee motion is limited 0-45 degrees approximately to right knee - this appears to be related to patient's swelling along the medial leg. Left knee is unremarkable with full motion. Neurovascularly intact b/l LE. Review of CT images and report 12/05 reveals: Joint: Status post right total knee arthroplasty with long stem femoral and tibial components. The hardware appears intact with stable lucency along the posteromedial tibia when compared with prior exam from 2016. Small nonspecific right knee effusion. Given patient's presentation and recent graft harvest as well as his nontender knee and motion, very low suspicion that this present abscess involves the knee. Concern would certainly exist for patient to have pain and difficulty with motion given abscess location. Patient's case reviewed with Dr. Foley. At this time recommendation for work up of abscess and will have patient follow up outpatient regarding his knee joint, should pain and difficulty with motion continue following abscess resolution. Thank you for this consultation. Please reach out or reconsult with any further concerns or questions regarding patient's orthopedic health. Past Med Surg Social Fam HX - Past Medical History Medical history: aortic aneurysm, atrial fibrillation, hyperlipidemia, hypertension, other Additional medical history: CVAx2 Psychiatric history: no psych history - Past Surgical History Surgical History: cholecystectomy, coronary bypass (CABG), other Additional surgical history: aneurism repair, aortic valve replacement - Social History Smoking Status: Never smoker Smokeless Tobacco Status: No Alcohol use: none Drug use: none - Family History Mother Living Status: Still Living Hx Family Cardiac Disorders: Yes (htn, stents) Hx Family Cancer: Yes (breast ca) Father Living Status: Hx Family Cardiac Disorders: Yes (chf, htn) Hx Family Endocrine Disorder: Yes (dm) Medications and Allergies Furosemide [Lasix] 40 mg PO DAILY 08/23/15 [History] Aspirin [Lo-Dose Aspirin EC] 81 mg PO HS 10/29/18 [History] LevETIRAcetam [Keppra] 500 mg PO BID 10/29/18 [History] Metoprolol [Lopressor] 25 mg PO BID 10/29/18 [History] Pantoprazole Sodium [Protonix] 20 mg PO DAILY 10/29/18 [History] Potassium Chloride [Klor-Con 10] 20 meq PO DAILY 10/29/18 [History] Sennosides [Senna] 8.6 mg PO BID PRN 10/29/18 [History] Warfarin [Coumadin] 5 mg PO 1800 10/29/18 [History] Atorvastatin Calcium [Lipitor] 80 mg PO HS 10/30/18 [History] Silvasorb 0 ml .ROUTE DAILY 12/05/18 [History] Allergy/AdvReac Type Severity Reaction Status Date / Time Penicillins [PCN] Allergy Hives Verified 10/30/18 13:40 All Systems Reviewed: The remainder of the systems were reviewed and are negative Physical Exam - Constitutional Vitals: Temp Pulse Resp BP Pulse Ox 99.2 F 80 14 118/71 92 12/06/18 06:57 12/06/18 06:57 12/06/18 06:57 12/06/18 06:57 12/06/18 06:57 Results - Labs Result Diagrams: 12/06/18 04:38 12/06/18 04:38 Labs: Abnormal lab results WBC 14.5 K/mcL (4.3-11.1) H 12/06/18 04:38 RBC 4.01 M/mcL (4.19-5.50) L 12/06/18 04:38 Hgb 11.2 g/dL (12.9-16.9) L D 12/06/18 04:38 Hct 35.0 % (37.5-50.1) L 12/06/18 04:38 MCH 27.9 pg (28.0-33.3) L 12/06/18 04:38 RDW 16.6 % (11.5-14.5) H 12/06/18 04:38 Plt Count 125 K/mcL (140-400) L 12/06/18 04:38 Neutrophils # 11.6 K/mcL (1.6-8.9) H 12/06/18 04:38 Monocytes # 1.6 K/mcL (0.0-1.3) H 12/06/18 04:38 PT 33.7 Seconds (9.4-12.1) H 12/06/18 04:38 APTT 53.4 Seconds (26.0-36.0) H 12/05/18 17:39 Chloride 108 mEq/L (98-107) H 12/06/18 04:38 Carbon Dioxide 22 mEq/L (23-29) L 12/06/18 04:38 BUN 31 mg/dL (8-23) H 12/06/18 04:38 Creatinine 1.42 mg/dL (0.70-1.30) H 12/06/18 04:38 Est GFR ( Amer) 52 (> 60) L 12/05/18 17:39 Est GFR (Non-Af Amer) 50 (> 60) L 12/06/18 04:38 Glucose 110 mg/dL (70-105) H 12/06/18 04:38 Calcium 7.9 mg/dL (8.6-10.3) L 12/06/18 04:38 Phosphorus 2.1 mg/dL (2.7-4.5) L 12/05/18 17:39 Total Bilirubin 1.5 mg/dL (0.3-1.0) H 12/05/18 17:39 Direct Bilirubin 0.5 mg/dL (0.0-0.2) H 12/05/18 17:39 Alkaline Phosphatase 115 Units/L (34-104) H 12/05/18 17:39 H & H 12/05/18 12/06/18 Range/Units 17:39 04:38 Hgb 12.7 L 11.2 L D (12.9-16.9) g/dL Hct 39.8 35.0 L (37.5-50.1) % All other labs normal. Consult Discharge Plan - Plan Referrals: Shanthi Mccollum [Primary Care Provider] -
[2018-12-06] MEDS ORDERED: Furosemide 40 MG TABLET PO SCH (09:00)
--- NOTE | 2018-12-06 09:30 | Vascular/Endovasc Consult Note ---
Date of Encounter: 12/06/18 Time of Encounter: 09:00 Assessment and Plan (1) Cellulitis of leg, right Current Visit: Yes Status: Acute The patient has a large fluid collection involving the right thigh after prior saphenous vein harvest. Given his erythema, elevated white blood cell count, erythema and adjacent chronic wound, an abscess is suspected. The patient has been discussed with Dr. Mcmanus with the Acute Care Surgical Service. He will evaluate the patient and perform incision and drainage if indicated. (2) Coronary artery disease Current Visit: Yes Status: Chronic Qualifiers: Coronary Disease-Associated Artery/Lesion type: bypass graft [place] vs. transplanted heart: [place] heart Associated angina: without angina Qualified Code(s): I25.810 - Atherosclerosis of coronary artery bypass graft(s) without angina pectoris (3) Obesities, morbid Current Visit: Yes Status: Chronic (4) CKD (chronic kidney disease) stage 3, GFR 30-59 ml/min Current Visit: No Status: Chronic (5) Essential hypertension Current Visit: Yes Status: Chronic The patient was counter atherosclerotic risk factor reduction. - History of Present Illness Consult date: 12/06/18 Requesting physician: Milena Castillo Consult reason: Right thigh pain and swelling Chief complaint: Right thigh pain and swelling History of present illness: Mr. Post is a 63 year old male with a history of open-heart surgery performed at the [facility]. The patient presented to [facility] recently with pain and swelling of the right calf. He underwent localized incision and drainage of an abscess. He was treated with local wound care. The patient presents to the emergency room with complaints of cellulitis right leg tenderness and right leg pain. He reports fevers and chills. He was seen by the emergency room and felt to have an ongoing cellulitis of the right lower extremity vascular surgery was counseled for further evaluation. At the time of evaluation the patient denies any fevers or chills. He denies chest pain or shortness of breath. Past Med Surg Social Fam HX - Past Medical History Medical history: aortic aneurysm, atrial fibrillation, hyperlipidemia, hypertension, other Additional medical history: CVAx2 Psychiatric history: no psych history - Past Surgical History Surgical History: cholecystectomy, coronary bypass (CABG), other Additional surgical history: aneurism repair, aortic valve replacement - Social History Smoking Status: Never smoker Smokeless Tobacco Status: No Alcohol use: none Drug use: none - Family History Mother Living Status: Still Living Hx Family Cardiac Disorders: Yes (htn, stents) Hx Family Cancer: Yes (breast ca) Father Living Status: Hx Family Cardiac Disorders: Yes (chf, htn) Hx Family Endocrine Disorder: Yes (dm) Medications and Allergies Aspirin [Lo-Dose Aspirin EC] 81 mg PO HS 10/29/18 [History] LevETIRAcetam [Keppra] 500 mg PO BID 10/29/18 [History] Metoprolol [Lopressor] 25 mg PO BID 10/29/18 [History] Pantoprazole Sodium [Protonix] 20 mg PO DAILY 10/29/18 [History] Sennosides [Senna] 8.6 mg PO BID PRN 10/29/18 [History] Atorvastatin Calcium [Lipitor] 80 mg PO HS 10/30/18 [History] Ciprofloxacin [Cipro] 500 mg PO BID #20 tablet 12/09/18 [Rx] Lactobacillus [Culturelle] 1 each PO BID #30 cap.sprink 12/09/18 [Rx] Warfarin [Coumadin] 2.5 mg PO 1800 #0 12/09/18 [Rx] Allergy/AdvReac Type Severity Reaction Status Date / Time Penicillins [PCN] Allergy Hives Verified 10/30/18 13:40 All Systems Review: The remainder of the systems were reviewed and are negative - Constitutional Constitutional: chills, fever(s) - Cardiovascular Cardiovascular: no chest pain at rest, no dyspnea at rest Exam Vital Signs, Last 4 Hours Temp Pulse Resp BP Pulse Ox 12/06/18 06:57 99.2 F 80 14 118/71 92 General: Present: Conversant, No Apparent Distress HEENT: Present: Pupils equal Neck: Absent: JVD, Lymphadenopathy, Left Carotid bruit, Right Carotid bruit Cardiac: Present: Reg Rate and Rhythm Lungs: Present: Normal Breath Sounds Neuro: Present: Alert and responsive, Motor nerves grossly intact, Sensory nerves grossly intact Abdomen: Present: Soft, Non-tender. Absent: Masses Vascular: Present: Normal capillary refill Skin: Present: Other (Erythema present in the right lower extremity from the mid thigh to the mid calf, tenderness present, no crepitance, fluctuance noted at the right medial thigh) Consult Discharge Plan - Plan Instructions: Atrial Fibrillation (DC), Cellulitis (DC), Negative Pressure Wound Therapy (DC) Additional Instructions: Follow-up with in wound care 1-2 weeks after discharge. Home health care for wound vac changes Wound Vac: Changes Q M/W/. Black foam. -125 mmhg suction (continuous). Referrals: Papi Tafoya MD [Non-Partnered Physician] - 12/27/18 1:45 pm (Please follow up as schedule..) Tano Rodríguez MD [Partnered Physician] - 01/12/19 8:30 am (Please follow up as schedule..) Shanthi Mccollum [Primary Care Provider] - 12/14/18 10:00 am (Please follow up as schedule..) Prescriptions: Ciprofloxacin [Cipro] 500 mg PO BID #20 tablet Lactobacillus [Culturelle] 1 each PO BID #30 cap.sprink
[2018-12-06] MEDS: levETIRAcetam 250 MG TABLET PO SCH ×2 (09:31→21:47)
--- NOTE | 2018-12-06 11:56 | Internal Med Progress Note ---
Hospitalist Progress Note - Encounter Date of Encounter: 12/06/18 Time of Encounter: 11:35 - Subjective Interval History: Patient presented last night for concern for abscess in right lower extremity. Currently pain is controlled and only has pain when he moves his leg. Vascular surgery is discussing case with general surgery, who will see patient for possible incision and drainage. - Exam Vitals: Temp Pulse Resp BP Pulse Ox 99.2 F 80 14 118/71 92 12/06/18 06:57 12/06/18 06:57 12/06/18 06:57 12/06/18 06:57 12/06/18 06:57 Exam: General: Ill-appearing and in no acute distress HEENT: No erythema of posterior pharynx. No exudates. Lymphatics: No mandibular or cervical lymphadenopathy Cardiovascular: RRR. No murmurs. No chest wall tenderness. Lungs: Clear to auscelltation bilaterally. Regular chest rise. Abdomen: Non-tender. No rebound or gaurding. Nl bowel sounds. Extremities: No edema. 2+ pulses radial and pedal pulses Skin: RLE with minimal erythema but notable fluid collection on medial aspect of right thigh. Also has purulence of R amos in site of previous surgery Psych: Nl attention. A&Ox3 Neuro: director of student financial services II-XII intact. 5/5 strength. Sensation to light touch and pinprick intact. - Assessment and Plan (1) Abscess of right lower extremity Current Visit: Yes Status: Acute Assessment and Plan: Patient with history of recurrent injury to the right lower extremity resulting in frequent recurrent cellulitis with abscess status post incision and drainage in October 2018 presents with recurrent fluid collection in right lower extremity in the setting of normal vitals (not meeting sepsis criteria on admission) but leukocytosis with CT imaging with subcutaneous edema with tiny locules of soft tissue gas and fluid collection. -Concern for abscess given CT findings. [place] surgery and orthopedics urgently consulted, however, may be a Gen. surgery issue given abscess so general surgery is now on board -Some concern for nec fasc given CT imaging findings, however, not clinically acting like nec fasc (pain is minimal, no loss of sensation or pulses. PLAN: - NPO for surgery today - F/u cx - Cefepime and vancomycin - Reverse warfarin (2) Coronary artery disease Current Visit: No Status: Chronic Assessment and Plan: Recent CABG with right saphenous vein harvest in right lower extremity. - Continue aspirin and statin - Vascular surgery following given the close proximity of harvest to abscess area (3) Atrial fibrillation Current Visit: No Status: Chronic Assessment and Plan: Hx of atrial fibtrillation on wafarin. - Currently rate controlled with home metoprolol - Reverse warfarin for surgery (4) Obesities, morbid Current Visit: No Status: Chronic Assessment and Plan: Complicates all aspects of care DVT Prophylaxis: Home warfarin for surgery - Time Spent with Patient Total time spent is greater than 50% in coordination of care (as documented) at patient's floor/unit and/or counseling patient: Greater than 35 minutes Internal Medicine: Result - Labs CBC & Chem 7: 12/06/18 04:38 12/06/18 04:38 Labs: Short CBC 12/05/18 12/06/18 Range/Units 17:39 04:38 WBC 17.1 H 14.5 H (4.3-11.1) K/mcL Hgb 12.7 L 11.2 L D (12.9-16.9) g/dL Hct 39.8 35.0 L (37.5-50.1) % Plt Count 146 125 L (140-400) K/mcL Neutrophils # 13.7 H 11.6 H (1.6-8.9) K/mcL BMP 12/05/18 12/06/18 17:39 04:38 Sodium 138 139 Potassium 3.7 3.7 Chloride 102 108 H Carbon Dioxide 27 22 L BUN 35 H 31 H Creatinine 1.62 H 1.42 H Glucose 116 H 110 H Calcium 8.7 7.9 L Cardiac Enzymes 12/05/18 Range/Units 17:39 Troponin I < 0.03 (< 0.04) ng/mL Liver Function 12/05/18 Range/Units 17:39 Total Bilirubin 1.5 H (0.3-1.0) mg/dL Direct Bilirubin 0.5 H (0.0-0.2) mg/dL AST 22 (13-39) Units/L ALT 18 (7-52) Units/L Alkaline Phosphatase 115 H (34-104) Units/L Albumin 3.6 (3.5-5.7) g/dL - ABG Interpretation ABG results: PT/INR, D-dimer PT 33.7 Seconds (9.4-12.1) H 12/06/18 04:38 - Impressions Impressions Lower Extremity CT 12/05/18 17:37 IMPRESSION: 1. Diffuse nonspecific subcutaneous edema and skin thickening of the right lower extremity. While findings may reflect longstanding venous stasis or lymph edema, recommend clinical correlation for cellulitis. A few tiny locules of soft tissue gas are identified along the medial soft tissues at the level of the proximal tibia which appears to reside within the epidermis. Findings may be related to ulceration, focal infection, or recent postoperative changes at this site. No underlying fluid collection identified at this site. 2. Well-circumscribed rim enhancing fluid collection within the medial soft tissues at the level of the distal femur and knee similar to comparison CT from October 28, 2018. This fluid demonstrates CT characteristics suggestive of simple fluid and potentially may reflect large seroma. Sterility of the collection is indeterminate on imaging. No gas identified within the collection. 3. No acute osseous abnormality identified. D/ / Kashmir Martinez MD / Kashmir Martinez MD Interpreting Provider: Kashmir Martinez MD Consult Discharge Plan - Plan Referrals: Shanthi Mccollum [Primary Care Provider] - (2) Coronary artery disease Qualifiers: Coronary Disease-Associated Artery/Lesion type: [place] artery [place] vs. transplanted heart: [place] heart Associated angina: without angina Qualified Code(s): I25.10 - Atherosclerotic heart disease of [place] coronary artery without angina pectoris (3) Atrial fibrillation Qualifiers: Atrial fibrillation type: paroxysmal Qualified Code(s): I48.0 - Paroxysmal atrial fibrillation
[2018-12-06] MEDS: Cefepime HCl 2,000 MG in Water for inj. (sterile) 20 ML IVP SCH ×2 (12:34→18:31)
[2018-12-06] MEDS: Clindamycin 600 MG/50 ML 600 MG/50 ML IV.SOLN IVPB SCH ×2 (12:35→18:39)
--- NOTE | 2018-12-06 12:38 | AcuteCare Surgery Consult Note ---
Date of Encounter: 12/06/18 Time of Encounter: 10:40 Assessment and Plan (1) Abscess of right lower extremity Current Visit: Yes Status: Acute Palpable fluid collection right lower extremity associated with leukocytosis. The patient has lymphedema and chronic venous hypertension and hemosiderin deposition with dermatosclerosis consistent with chronic poorly treated bilateral lower extremity venous hypertension. He would benefit from aggressive leg elevation and bilateral lymphedema pumps. He will require incision and drainage of the fluid collection in the medial aspect of the right thigh. We will proceed later today. History of Present Illness Consult date: 12/06/18 Reason for consult: other (Right thigh fluid collection) History of present illness: The patient is a morbidly obese 63-year-old male who was recently admitted with leukocytosis and what appeared to be a fluid collection in the right thigh. He is previously had saphenous vein harvest from the right thigh. Several weeks ago, an incision and drainage of the calf incision was performed by vascular surgery. The wound is still open and not being packed and measures about 1 cm x 2.5 cm x 5 mm. Granulation tissue is present. The patient is tender in the right thigh. The patient has a fluctuant fluid collection along the distribution of the saphenous vein. It is unclear whether this is abscess or lymphocele. He will require incision and drainage and likely negative pressure wound dressing with wound VAC. The patient has complex lower extremity chronic pathology. He has lymphedema with chronic pitting edema of both lower extremities worse on the right than on the left. He has chronic hemosiderin deposition and dermatosclerosis consistent with chronic venous hypertension bilaterally, worse on the right than on the left. These underlying conditions make treating any infection or lymphocele much more difficult. He should practice aggressive right leg elevation. I may recommend Unna boot compression therapy while in the hospital. He may require lymphedema pumps for several hours per day Past Med Surg Social Fam HX - Past Medical History Medical history: aortic aneurysm, atrial fibrillation, hyperlipidemia, hypertension, other Additional medical history: CVAx2 Psychiatric history: no psych history - Past Surgical History Surgical History: cholecystectomy, coronary bypass (CABG), other Additional surgical history: aneurism repair, aortic valve replacement - Social History Smoking Status: Never smoker Smokeless Tobacco Status: No Alcohol use: none Drug use: none - Family History Mother Living Status: Still Living Hx Family Cardiac Disorders: Yes (htn, stents) Hx Family Cancer: Yes (breast ca) Father Living Status: Hx Family Cardiac Disorders: Yes (chf, htn) Hx Family Endocrine Disorder: Yes (dm) Medications and Allergies Furosemide [Lasix] 40 mg PO DAILY 08/23/15 [History] Aspirin [Lo-Dose Aspirin EC] 81 mg PO HS 10/29/18 [History] LevETIRAcetam [Keppra] 500 mg PO BID 10/29/18 [History] Metoprolol [Lopressor] 25 mg PO BID 10/29/18 [History] Pantoprazole Sodium [Protonix] 20 mg PO DAILY 10/29/18 [History] Potassium Chloride [Klor-Con 10] 20 meq PO DAILY 10/29/18 [History] Sennosides [Senna] 8.6 mg PO BID PRN 10/29/18 [History] Warfarin [Coumadin] 5 mg PO 1800 10/29/18 [History] Atorvastatin Calcium [Lipitor] 80 mg PO HS 10/30/18 [History] Silvasorb 0 ml .ROUTE DAILY 12/05/18 [History] Allergy/AdvReac Type Severity Reaction Status Date / Time Penicillins [PCN] Allergy Hives Verified 10/30/18 13:40 Review of Systems All systems PM: The remainder of the systems were reviewed and are negative General Surgery Exam Initial Vital Signs Temp Pulse Resp BP Pulse Ox 99.5 F 65 20 162/84 94 12/05/18 16:26 12/05/18 16:26 12/05/18 16:26 12/05/18 16:26 12/05/18 16:26 - General physical appearance well developed, well nourished, no distress, obese (Profound morbid obesity) - ENT normal pinna, normal nares, normal mucosa, no hearing loss, no congestion - Neck no masses, no bruits, trachea midline, no lymphadectomy, no venous distension - Respiratory normal expansion, normal respiratory effort, clear to percussion, clear to auscultation - Cardiovascular Cardiovascular exam: Present: RRR, no murmurs/rubs/gallops - Abdomen Abdomen general surgery: Present: bowel sounds present, soft, non tender - Neurologic Present: CN 2-12 grossly intact, normal coordination, normal sensation - Musculoskeletal Present: other (Palpable fluid collection medial right thigh. Hemosiderin deposition and dermatosclerosis bilateral lower extremities. Lymphedema both lower extremities worse on the right than on the left) - Psychiatric Psychiatric general surgery: Present: appropriate, oriented to person, oriented to place, oriented to time, speech is normal, memory intact Exam Initial Vital Signs Temp Pulse Resp BP Pulse Ox 99.5 F 65 20 162/84 94 12/05/18 16:26 12/05/18 16:26 12/05/18 16:26 12/05/18 16:26 12/05/18 16:26 Results - Labs 12/06/18 04:38 12/06/18 04:38 Abnormal lab results WBC 14.5 K/mcL (4.3-11.1) H 12/06/18 04:38 RBC 4.01 M/mcL (4.19-5.50) L 12/06/18 04:38 Hgb 11.2 g/dL (12.9-16.9) L D 12/06/18 04:38 Hct 35.0 % (37.5-50.1) L 12/06/18 04:38 MCH 27.9 pg (28.0-33.3) L 12/06/18 04:38 RDW 16.6 % (11.5-14.5) H 12/06/18 04:38 Plt Count 125 K/mcL (140-400) L 12/06/18 04:38 Neutrophils # 11.6 K/mcL (1.6-8.9) H 12/06/18 04:38 Monocytes # 1.6 K/mcL (0.0-1.3) H 12/06/18 04:38 PT 33.7 Seconds (9.4-12.1) H 12/06/18 04:38 APTT 53.4 Seconds (26.0-36.0) H 12/05/18 17:39 Chloride 108 mEq/L (98-107) H 12/06/18 04:38 Carbon Dioxide 22 mEq/L (23-29) L 12/06/18 04:38 BUN 31 mg/dL (8-23) H 12/06/18 04:38 Creatinine 1.42 mg/dL (0.70-1.30) H 12/06/18 04:38 Est GFR ( Amer) 52 (> 60) L 12/05/18 17:39 Est GFR (Non-Af Amer) 50 (> 60) L 12/06/18 04:38 Glucose 110 mg/dL (70-105) H 12/06/18 04:38 Calcium 7.9 mg/dL (8.6-10.3) L 12/06/18 04:38 Phosphorus 2.1 mg/dL (2.7-4.5) L 12/05/18 17:39 Total Bilirubin 1.5 mg/dL (0.3-1.0) H 12/05/18 17:39 Direct Bilirubin 0.5 mg/dL (0.0-0.2) H 12/05/18 17:39 Alkaline Phosphatase 115 Units/L (34-104) H 12/05/18 17:39 Diabetes panel 12/05/18 12/06/18 Range/Units 17:39 04:38 Sodium 138 139 (136-145) mEq/L Potassium 3.7 3.7 (3.5-5.1) mEq/L Chloride 102 108 H (98-107) mEq/L Carbon Dioxide 27 22 L (23-29) mEq/L BUN 35 H 31 H (8-23) mg/dL Creatinine 1.62 H 1.42 H (0.70-1.30) mg/dL Glucose 116 H 110 H (70-105) mg/dL Calcium 8.7 7.9 L (8.6-10.3) mg/dL AST 22 (13-39) Units/L ALT 18 (7-52) Units/L Alkaline Phosphatase 115 H (34-104) Units/L Albumin 3.6 (3.5-5.7) g/dL Calcium panel 12/05/18 12/06/18 Range/Units 17:39 04:38 Calcium 8.7 7.9 L (8.6-10.3) mg/dL Phosphorus 2.1 L (2.7-4.5) mg/dL Albumin 3.6 (3.5-5.7) g/dL Pituitary panel 12/05/18 12/06/18 Range/Units 17:39 04:38 Sodium 138 139 (136-145) mEq/L Potassium 3.7 3.7 (3.5-5.1) mEq/L Chloride 102 108 H (98-107) mEq/L Carbon Dioxide 27 22 L (23-29) mEq/L BUN 35 H 31 H (8-23) mg/dL Creatinine 1.62 H 1.42 H (0.70-1.30) mg/dL Glucose 116 H 110 H (70-105) mg/dL Calcium 8.7 7.9 L (8.6-10.3) mg/dL Adrenal panel 12/05/18 12/06/18 Range/Units 17:39 04:38 Sodium 138 139 (136-145) mEq/L Potassium 3.7 3.7 (3.5-5.1) mEq/L Chloride 102 108 H (98-107) mEq/L Carbon Dioxide 27 22 L (23-29) mEq/L BUN 35 H 31 H (8-23) mg/dL Creatinine 1.62 H 1.42 H (0.70-1.30) mg/dL Glucose 116 H 110 H (70-105) mg/dL Calcium 8.7 7.9 L (8.6-10.3) mg/dL Total Bilirubin 1.5 H (0.3-1.0) mg/dL AST 22 (13-39) Units/L ALT 18 (7-52) Units/L Alkaline Phosphatase 115 H (34-104) Units/L Albumin 3.6 (3.5-5.7) g/dL All other labs normal. Consult Discharge Plan - Plan Referrals: Shanthi Mccollum [Primary Care Provider] -
[2018-12-06] MEDS: Ringers Solution, Lactated 1,000 ML IVC SCH (12:46)
[2018-12-06 15:12] LABS: INR 2.6; Prothrombin Time 29.5 Seconds (9.4-12.1)
--- NOTE | 2018-12-06 16:03 | Anesthesia Evaluation PreOp ---
Date of Encounter: 12/06/18 Time of Encounter: 16:01 - Past History Planned Operation: I & D Right Thigh Cardiac History: HTN, Hyperlipidemia, Arrhythmia (H/O A-Fib), Cardiac Surgery (CABGx2 with AVR and ascending aortic aneurysm repair 06/28/2018) Pulmonary History: Snore, NAZARIO Dx (does not use Bipap) CONTROL SYSTEMS DESIGNER History: Seizures (stable on medication), CVA (CVA x 2 in 07/2018, denies residual deficit) Other Medical History: Other (obesity BMI=43.7) Anesthesia History: No Prior Anesthetic Complications, Past Anesthesia Alcohol Use: none Drug use: none Medications and Allergies Furosemide [Lasix] 40 mg PO DAILY 08/23/15 [History] Aspirin [Lo-Dose Aspirin EC] 81 mg PO HS 10/29/18 [History] LevETIRAcetam [Keppra] 500 mg PO BID 10/29/18 [History] Metoprolol [Lopressor] 25 mg PO BID 10/29/18 [History] Pantoprazole Sodium [Protonix] 20 mg PO DAILY 10/29/18 [History] Potassium Chloride [Klor-Con 10] 20 meq PO DAILY 10/29/18 [History] Sennosides [Senna] 8.6 mg PO BID PRN 10/29/18 [History] Warfarin [Coumadin] 5 mg PO 1800 10/29/18 [History] Atorvastatin Calcium [Lipitor] 80 mg PO HS 10/30/18 [History] Silvasorb 0 ml .ROUTE DAILY 12/05/18 [History] Allergy/AdvReac Type Severity Reaction Status Date / Time Penicillins [PCN] Allergy Hives Verified 10/30/18 13:40 - Meds/Allergy Pre-op Review Medications Reviewed: Yes Allergies Reviewed: Yes Beta Blockers on Current Med List: Yes If Beta Blockers taken, Date/Time (Last Dose taken): 12/06/2018 at 0931 Anesthesia Results - Labs 12/06/18 04:38 12/06/18 04:38 - Imaging EKG: report reviewed (10/29/2018 SINUS BRADYCARDIA WITH FIRST DEGREE AV BLOCK BORDERLINE LEFT AXIS DEVIATION MODERATE INTRAVENTRICULAR CONDUCTION DELAY NONSPECIFIC ST & T-WAVE ABNORMALITY) Anesthesia Exam Vital Signs/O2 Sat/Glucose, Most Recent Temp Pulse Resp BP Pulse Ox 98.2 F 62 14 124/75 93 12/06/18 11:51 12/06/18 11:51 12/06/18 11:51 12/06/18 11:51 12/06/18 11:51 Blood Glucose* 98 Height: 5'8''/1.73m Weight: 288 lbs/131 kg NPO (# of Hours): 8 Pain Scale: 0 Pain Scale Used: Numeric (1 - 10) - HEENT Pupil (Motor): EOMI Mallampati: III Teeth: Edentulous Denture Type: Upper: Complete, Lower: Complete Oral Opening: Greater than 3 - CONTROL SYSTEMS DESIGNER LOC: Oriented CONTROL SYSTEMS DESIGNER Motor: Normal RUE, Normal LUE, Normal RLE, Normal LLE, Normal Face CONTROL SYSTEMS DESIGNER Sensory: Normal: RUE, LUE, RLE, LLE, Face - Cardiac Rhythm: Regular Murmur: None - Pulmonary Breath Sounds: bilateral Clear Respiratory Effort: Symmetrical Anesthesia Assess/Plan ASA Score: 3 Level of consciousness: Cooperative, Oriented, Tranquil Anesthetic Plan: General Monitoring Plan: Standard Monitors Recovery Plan: PACU
[2018-12-06] MEDS ORDERED: Lidocaine -MPF 4% 5 ML AMPUL ONE (16:21)
[2018-12-06] MEDS ORDERED: *HR* Rocuronium Bromide 50 MG/5 ML VIAL ONE (16:21)
[2018-12-06] MEDS ORDERED: *HR* Propofol 200 MG/20 ML VIAL IVP ONE (16:21)
[2018-12-06] MEDS ORDERED: *HR* FentaNYL (PF) 100 MCG/2 ML VIAL ONE ×2 (16:21→17:07)
[2018-12-06] MEDS ORDERED: Ondansetron 4 MG/2 ML VIAL ONE (16:21)
[2018-12-06] MEDS ORDERED: Lidocaine -MPF 2% 2 ML VIAL ONE (16:21)
[2018-12-06] MEDS ORDERED: *HR* HYDROmorphone (PF) 1 MG/ML SYRINGE IVP PRN (16:54)
--- NOTE | 2018-12-06 17:22 | Operative Note ---
Date of procedure: 12/06/18 Pre-op diagnosis: Fluid collection right lower extremity, wound right lower extremity Post-op diagnosis: other (#1 abscess right lower extremity #2 nonhealing surgical wound right lower extremity) Procedure: #1 incision and drainage abscess right thigh #2 debridement skin subcutaneous tissue and fascia right lower extremity nonhealing surgical wound #3 debridement skin and necrotic subcutaneous tissue and fascia right thigh Anesthesia: TRINOA Surgeon: Serjio Mcmanus Was there an religious assistant present: No Estimated blood loss (cc): 10 Specimen: Deep cultures aerobic and anaerobic Condition: stable Disposition: PACU Procedure in Detail: After informed consent the patients taking major operating suite placed in the supine position and given general anesthetic. The right leg was prepped and draped in sterile fashion utilizing Betadine solution and standard draping techniques. Timeout was taken and the patient was identified. Lateralizing fer was identified timeout standards followed. I made a direct incision into the fluid collection and immediately relieved 500 mL of creamy white pus. The incision was lengthened and oriented along the abscess cavity area I debrided skin, subcutaneous tissue, fascia from the right thigh. I irrigated with copious amounts of antibiotic containing solution and packed the abscess cavity with 1 inch iodoform. Electrocautery was used for hemostasis Attention was turned to the nonhealing surgical wound on the upper portion of the right lower extremity. I used a curet to debride skin and subcutaneous tissue and fascia. I removed liquefactive necrosis and necrotic tissue. Direct pressure was used for hemostasis. Electrocautery was used for hemostasis. I packed the wound with iodoform
[2018-12-06] MEDS ORDERED: Warfarin perPT PO PRN (18:00)
--- NOTE | 2018-12-06 18:09 | Anesthesia Evaluation Post Op ---
Date of Encounter: 12/06/18 Time of Encounter: 18:08 - Vital Signs Vital Signs: Vital Signs/O2 Sat, Most Current Temp Pulse Resp BP Pulse Ox 98.4 F 65 18 128/55 96 12/06/18 18:00 12/06/18 18:00 12/06/18 18:00 12/06/18 18:00 12/06/18 18:00 - Lungs Lungs: Clear Ascult./Percussion - Airway Airway: Non-obstructed - Cardiovascular Baseline Rhythm - Mental Status Mental Status: Alert & Oriented, Answers Appropriately - Pain Pain Scale: 0 Pain Scale used: Numeric (1 - 10) - Nausea Vomiting Nausea Vomiting: Not Present - Hydration Hydration: Tolerates oral liquids - Discharge PostOp Status: Transfer Patient to floor
[2018-12-06] MEDS: Aspirin Enteric Coated 81 MG Tablet PO SCH (21:47)
[2018-12-07] MEDS: Clindamycin 600 MG/50 ML 600 MG/50 ML IV.SOLN IVPB SCH ×4 (00:32→23:44)
[2018-12-07] MEDS: Cefepime HCl 2,000 MG in Water for inj. (sterile) 20 ML IVP SCH ×2 (06:42→17:34)
[2018-12-07 07:26] LABS: Hematocrit 36.1 % (37.5-50.1); Hemoglobin 11.1 g/dL (12.9-16.9); Mean Corpuscular HGB Conc 30.7 g/dL (31.6-35.5); Mean Corpuscular Hemoglobin 27.8 pg (28.0-33.3); Mean Corpuscular Volume 90.5 fL (83.0-100.0); Mean Platelet Volume 10.3 fL (9.4-12.4); Platelet Count 132 K/mcL (140-400); Red Blood Count 3.99 M/mcL (4.19-5.50); Red Cell Distribution Width 16.6 % (11.5-14.5); White Blood Count 9.8 K/mcL (4.3-11.1)
[2018-12-07 07:49] LABS: INR 1.9; Prothrombin Time 21.5 Seconds (9.4-12.1)
[2018-12-07 07:51] LABS: BUN/Creatinine Ratio 20 (6-26); Blood Urea Nitrogen 28 mg/dL (8-23); Calcium 8.1 mg/dL (8.6-10.3); Carbon Dioxide 27 mEq/L (23-29); Chloride 106 mEq/L (98-107); Glucose 133 mg/dL (70-105); Osmolality,Calculated 303 (280-300); Sodium 143 mEq/L (136-145); eGFR For African Americans > 60 (> 60); eGFR For Non-African Americans 52 (> 60)
[2018-12-07] MEDS: levETIRAcetam 250 MG TABLET PO SCH ×2 (08:03→21:06)
--- NOTE | 2018-12-07 11:38 | Internal Med Progress Note ---
Hospitalist Progress Note - Encounter Date of Encounter: 12/07/18 Time of Encounter: 11:36 - Subjective Interval History: Patient lying down in bed. Comfortable. Reports that the pain in his right leg has improved significantly since he came in. He underwent incision and drainage yesterday. Denies any fevers or chills. No nausea or vomiting. Tolerating diet well. He does have underlying history of sleep apnea. - Exam Vitals: Temp Pulse Resp BP Pulse Ox 98.1 F 68 17 111/72 94 12/07/18 11:24 12/07/18 11:24 12/07/18 11:24 12/07/18 11:24 12/07/18 11:24 Exam: General: Patient is alert, mild distress, oriented x 3 ENT: Mucous membranes moist Respiratory: Good respiratory effort. Normal breath sounds. No wheezing or crackles. Cardiovascular: Regular rate and rhythm. s1 and s2 normal No clicks, rubs, gallops, or murmurs. No pedal edema Abdomen: Abdomen is soft, nontender. Bowel sounds are present Musculoskeletal: Spontaneously moving all extremities , right lower extremity bandaged just above the knee joint. Mildly tender to palpation. Skin: warm, dry, intact. Neuro: Alert oriented x 3 normal cranial nerves, no focal deficits - Assessment and Plan (1) Abscess of right lower extremity Current Visit: Yes Status: Acute (2) Obesities, morbid Current Visit: Yes Status: Chronic (3) Atrial fibrillation Current Visit: Yes Status: Chronic (4) Coronary artery disease Current Visit: Yes Status: Chronic DVT Prophylaxis: Patient on Lovenox - Summary of Assessment and Plan Summary of Assessment and Plan: Cellulitis and abscess involving the right lower extremity: Status post incision and drainage yesterday. Continue current antibiotics. We will also place patient on a probiotic. Await culture results. Surgery following. Atrial fibrillation: Rate controlled. Resume Coumadin for anticoagulation later today. Patient does have a history of mechanical aortic valve and has had pre vious stroke. As such, we will bridge him with Lovenox. Coronary artery disease: Continue aspirin, beta roya and statin. Seizure disorder: Continue Keppra Moderate risk for complications - Time Spent with Patient Total time spent is greater than 50% in coordination of care (as documented) at patient's floor/unit and/or counseling patient: Internal Medicine: Result - Labs CBC & Chem 7: 12/07/18 07:10 12/07/18 07:10 Labs: Short CBC 12/07/18 Range/Units 07:10 WBC 9.8 (4.3-11.1) K/mcL Hgb 11.1 L (12.9-16.9) g/dL Hct 36.1 L (37.5-50.1) % Plt Count 132 L (140-400) K/mcL BMP 12/07/18 07:10 Sodium 143 Potassium 4.0 Chloride 106 Carbon Dioxide 27 BUN 28 H Creatinine 1.38 H Glucose 133 H Calcium 8.1 L - ABG Interpretation ABG results: PT/INR, D-dimer PT 21.5 Seconds (9.4-12.1) H 12/07/18 07:10 Consult Discharge Plan - Plan Referrals: Shanthi Mccollum [Primary Care Provider] - (3) Atrial fibrillation Qualifiers: Atrial fibrillation type: paroxysmal Qualified Code(s): I48.0 - Paroxysmal atrial fibrillation (4) Coronary artery disease Qualifiers: Coronary Disease-Associated Artery/Lesion type: [place] artery [place] vs. transplanted heart: [place] heart Associated angina: without angina Qualified Code(s): I25.10 - Atherosclerotic heart disease of [place] coronary artery without angina pectoris
--- NOTE | 2018-12-07 12:04 | AcuteCareSurgery Progress Note ---
<Ninoska Wilder Lcahelle - Last Filed: 12/07/18 11:58> Date of Encounter: 12/07/18 Time of Encounter: 11:45 - Assessment and Plan (1) Abscess of right lower extremity Current Visit: Yes Status: Acute POD #1 #1 incision and drainage abscess right thigh #2 debridement skin subcutaneous tissue and fascia right lower extremity nonhealing surgical wound #3 debridement skin and necrotic subcutaneous tissue and fascia right thigh Wound vac applied today, next change Will plan for management per wound care clinic upon discharge- discussed with the patient and he is agreeable IV antibiotics- Cefepime, Vancomycin, Clindamycin Cultures pending May transition to PO antibiotics upon discharge Surgery will continue to follow and assess progress Supportive care May ambulate TID with assistance Subjective Patient reports: no new complaints, feels better, tolerating a regular diet, afebrile Objective Vital Signs - Last 8 Hours Temp Pulse Resp BP Pulse Ox 12/07/18 11:24 98.1 F 68 17 111/72 94 12/07/18 07:15 98.2 F 71 18 112/69 96 12/07/18 04:35 98.1 F 72 18 118/62 96 Intake and Output 12/06/18 12/07/18 12/07/18 23:59 07:59 15:59 Intake Total 1770.5 / 2840.5 50 / 530 480 / 530 Output Total 10 1000 / 1000 Balance 1760.5 / 2830.5 -950 / -470 480 / -470 Intake: IV Fluids 1770.5 / 2840.5 50 / 50 0.9 % Sodium Chloride 1,000 ML 1000 / 1000 @ 999 mls/hr IVC .Q1H1M [facility] Rx# :[id number] Lactated Ringers 1,000 ML @ 125 600 / 1600 mls/hr IVC .Q8H [facility] Rx#: [id number] Maxipime 2,000 MG In Water for 20 / 40 inj. (sterile) 20 ML @ 300 mls/ hr IVP Q12HR [facility] Rx#:[id number] Cleocin Premix 600 MG/50 ML 600 100 / 150 50 / 50 mg In 50 ml @ 50 mls/hr IVPB Q8HR [facility] Rx#:[id number] AquaMephyton 5 MG In 0.9 % 50.5 / 50.5 Sodium Chloride 50 ML @ 100 mls /hr IVPB ONCE ONE Rx#: [id number] Oral 480 / 480 Output: Urine 0 / 0 Estimated Blood Loss Catheter 1000 / 1000 Other: Meal Breakfast Percent of Meal Consumed 100% Blood Glucose* 87 137 210 - General physical appearance well developed, well nourished, no distress - Eyes normal ocular movement - ENT normal mucosa, atraumatic, normocephalic - Neck Neck exam: trachea midline - Respiratory normal respiratory effort - Abdomen Abdomen: Present: soft, non tender - Incision Incision: Present: serosanguinous (moderate amount, no odor) - Neurologic CN 2-12 grossly intact - Psychiatric oriented to time, oriented to person, oriented to place, speech is normal, memory intact - Labs 12/07/18 07:10 12/07/18 07:10 Diabetes panel 12/07/18 Range/Units 07:10 Sodium 143 (136-145) mEq/L Potassium 4.0 (3.5-5.1) mEq/L Chloride 106 (98-107) mEq/L Carbon Dioxide 27 (23-29) mEq/L BUN 28 H (8-23) mg/dL Creatinine 1.38 H (0.70-1.30) mg/dL Glucose 133 H (70-105) mg/dL Calcium 8.1 L (8.6-10.3) mg/dL Calcium panel 12/07/18 Range/Units 07:10 Calcium 8.1 L (8.6-10.3) mg/dL Pituitary panel 12/07/18 Range/Units 07:10 Sodium 143 (136-145) mEq/L Potassium 4.0 (3.5-5.1) mEq/L Chloride 106 (98-107) mEq/L Carbon Dioxide 27 (23-29) mEq/L BUN 28 H (8-23) mg/dL Creatinine 1.38 H (0.70-1.30) mg/dL Glucose 133 H (70-105) mg/dL Calcium 8.1 L (8.6-10.3) mg/dL Adrenal panel 12/07/18 Range/Units 07:10 Sodium 143 (136-145) mEq/L Potassium 4.0 (3.5-5.1) mEq/L Chloride 106 (98-107) mEq/L Carbon Dioxide 27 (23-29) mEq/L BUN 28 H (8-23) mg/dL Creatinine 1.38 H (0.70-1.30) mg/dL Glucose 133 H (70-105) mg/dL Calcium 8.1 L (8.6-10.3) mg/dL Consult Discharge Plan - Plan Referrals: Shanthi Mccollum [Primary Care Provider] - - Attending Attestation For this encounter, I have reviewed the [employer] or PA documentation, treatment plan, and medical decision making; and I have had face to face time with this patient. <Papi Tafoya - Last Filed: 12/07/18 19:28> Date of Encounter: 12/07/18 Objective Vital Signs - Last 8 Hours Temp Pulse Resp BP Pulse Ox 12/07/18 15:46 97.9 F 62 16 121/68 96 Intake and Output 12/07/18 12/07/18 12/07/18 07:59 15:59 23:59 Intake Total 50 / 900 800 / 900 50 / 900 Output Total 1000 / 1050 50 / 1050 Balance -950 / -150 750 / -150 50 / -150 Intake: IV Fluids 50 / 420 320 / 420 50 / 420 Maxipime 2,000 MG In Water for 20 / 20 inj. (sterile) 20 ML @ 300 mls/ hr IVP Q12HR [facility] Rx#:[id number] Cleocin Premix 600 MG/50 ML 600 50 / 150 50 / 150 50 / 150 mg In 50 ml @ 50 mls/hr IVPB Q8HR [facility] Rx#:[id number] Vancocin 1,500 MG In 0.9 % 250 / 250 Sodium Chloride 250 ML @ 166.67 mls/hr IVPB Q24H [facility] Rx#: [id number] Oral 480 / 480 Output: Urine 0 / 0 Catheter 1000 / 1000 Wound Drainage 50 / 50 Right Medial Ernandez 50 / 50 Other: Meal Breakfast Percent of Meal Consumed 100% # Voids 1 Blood Glucose* 137 210 - Labs 12/07/18 07:10 12/07/18 07:10 Diabetes panel 12/07/18 Range/Units 07:10 Sodium 143 (136-145) mEq/L Potassium 4.0 (3.5-5.1) mEq/L Chloride 106 (98-107) mEq/L Carbon Dioxide 27 (23-29) mEq/L BUN 28 H (8-23) mg/dL Creatinine 1.38 H (0.70-1.30) mg/dL Glucose 133 H (70-105) mg/dL Calcium 8.1 L (8.6-10.3) mg/dL Calcium panel 12/07/18 Range/Units 07:10 Calcium 8.1 L (8.6-10.3) mg/dL Pituitary panel 12/07/18 Range/Units 07:10 Sodium 143 (136-145) mEq/L Potassium 4.0 (3.5-5.1) mEq/L Chloride 106 (98-107) mEq/L Carbon Dioxide 27 (23-29) mEq/L BUN 28 H (8-23) mg/dL Creatinine 1.38 H (0.70-1.30) mg/dL Glucose 133 H (70-105) mg/dL Calcium 8.1 L (8.6-10.3) mg/dL Adrenal panel 12/07/18 Range/Units 07:10 Sodium 143 (136-145) mEq/L Potassium 4.0 (3.5-5.1) mEq/L Chloride 106 (98-107) mEq/L Carbon Dioxide 27 (23-29) mEq/L BUN 28 H (8-23) mg/dL Creatinine 1.38 H (0.70-1.30) mg/dL Glucose 133 H (70-105) mg/dL Calcium 8.1 L (8.6-10.3) mg/dL - Attending Attestation patient seen and examined. i have reviewed all labs, imaging, notes. I have discussed the case with the [employer]GETABLE COOK in detail. I agree with the above assessment and plan
[2018-12-07] MEDS: Lactobacillus 1 EACH CAP.SPRINK PO SCH ×2 (12:14→21:06)
[2018-12-07] MEDS: *HR* Enoxaparin 150 MG/ML SYRINGE SQ SCH ×2 (12:14→21:06)
--- NOTE | 2018-12-07 15:24 | Electrocardiograph Report ---
[facility] Test Date: 2018-12-05 Pat Name: Ishmael Post Department: EXAM2 Room: [facility] Gender: M Guzzler Builder: : 1955 Requested By: Milena Castillo Order Number: [id number] Reading MD: Andre Rodriguez Measurements Intervals [place] Rate: 77 P: 36 ND: 182 QRS: -6 QRSD: 116 T: 79 QT: 374 QTc: 424 Interpretive Statements Sinus rhythm Nonspecific intraventricular conduction delay Electronically Signed On 12-07-2018 15:22:30 EDT by Andre Rodriguez
[2018-12-07] MEDS ORDERED: *HR* Warfarin 5 MG TABLET PO ONE (18:00)
[2018-12-07] MEDS: Aspirin Enteric Coated 81 MG Tablet PO SCH (21:06)
[2018-12-08 04:45] LABS: Basophils % 0.4 %; Eosinophils # 0.3 K/mcL (0.0-0.6); Eosinophils % 4.6 %; Hematocrit 35.9 % (37.5-50.1); Hemoglobin 11.1 g/dL (12.9-16.9); Immature Granulocytes % 0.3 % (0-4); Lymphocytes # 1.3 K/mcL (0.6-4.6); Lymphocytes % 18.9 %; Mean Corpuscular HGB Conc 30.9 g/dL (31.6-35.5); Mean Corpuscular Hemoglobin 27.7 pg (28.0-33.3); Mean Corpuscular Volume 89.5 fL (83.0-100.0); Mean Platelet Volume 11.5 fL (9.4-12.4); Monocytes # 0.9 K/mcL (0.0-1.3); Monocytes % 13.1 %; Neutrophils # 4.5 K/mcL (1.6-8.9); Platelet Count 145 K/mcL (140-400); Red Blood Count 4.01 M/mcL (4.19-5.50); Red Cell Distribution Width 16.7 % (11.5-14.5); Segmented Neutrophils % 62.7 %; White Blood Count 7.1 K/mcL (4.3-11.1)
[2018-12-08 04:59] LABS: INR 1.7; Prothrombin Time 19.2 Seconds (9.4-12.1)
[2018-12-08 05:03] LABS: BUN/Creatinine Ratio 21 (6-26); Blood Urea Nitrogen 27 mg/dL (8-23); Calcium 8.1 mg/dL (8.6-10.3); Carbon Dioxide 25 mEq/L (23-29); Chloride 111 mEq/L (98-107); Glucose 115 mg/dL (70-105); Osmolality,Calculated 300 (280-300); Potassium 3.9 mEq/L (3.5-5.1); Sodium 142 mEq/L (136-145); eGFR For African Americans > 60 (> 60); eGFR For Non-African Americans 57 (> 60)
[2018-12-08] MEDS: Cefepime HCl 2,000 MG in Water for inj. (sterile) 20 ML IVP SCH ×2 (05:58→18:27)
--- NOTE | 2018-12-08 08:36 | AcuteCareSurgery Progress Note ---
<Demi Medina - Last Filed: 12/08/18 08:38> Date of Encounter: 12/08/18 Time of Encounter: 07:20 - Assessment and Plan (1) Abscess of right lower extremity Current Visit: Yes Status: Acute Date of procedure: 12/06/18 Pre-op diagnosis: Fluid collection right lower extremity, wound right lower extremity Post-op diagnosis: other (#1 abscess right lower extremity #2 nonhealing surgical wound right lower extremity) Procedure: #1 incision and drainage abscess right thigh #2 debridement skin subcutaneous tissue and fascia right lower extremity nonhealing surgical wound #3 debridement skin and necrotic subcutaneous tissue and fascia right thigh Anesthesia: GETA Surgeon: Serjio Mcmanus POD #2 as above. preliminary wound cultures with gram-negative rods. Follow-up with in wound care 1-2 weeks after discharge. Home health care for wound vac changes Wound Vac: Changes Q M/W/F. Black foam. -125 mmhg suction (continuous). Surgery will follow from a distance at this time. Please call if questions or needs arise Subjective Patient reports: no new complaints Narrative: Up in room. Feeling improved. Per CM, wound vac, HHC, and follow-up in wound care must be approved by worker's comp prior to submission Objective Vital Signs - Last 8 Hours Temp Pulse Resp BP Pulse Ox 12/08/18 06:42 97.7 F 65 16 129/68 95 12/08/18 04:15 97.9 F 62 20 121/68 95 Intake and Output 12/07/18 12/08/18 12/08/18 23:59 07:59 15:59 Intake Total 70 / 920 50 / 50 Output Total 0 / 1050 Balance 70 / -130 50 / 50 Intake: IV Fluids 70 / 440 50 / 50 Maxipime 2,000 MG In Water for 20 / 40 inj. (sterile) 20 ML @ 300 mls/ hr IVP Q12HR [facility] Rx#:[id number] Cleocin Premix 600 MG/50 ML 600 50 / 150 50 / 50 mg In 50 ml @ 50 mls/hr IVPB Q8HR [facility] Rx#:[id number] Output: Urine 0 / 0 - General physical appearance no distress - Integumentary other (wound vac in place) - Musculoskeletal normal gait - Labs 12/08/18 03:32 12/08/18 03:32 Diabetes panel 12/08/18 Range/Units 03:32 Sodium 142 (136-145) mEq/L Potassium 3.9 (3.5-5.1) mEq/L Chloride 111 H (98-107) mEq/L Carbon Dioxide 25 (23-29) mEq/L BUN 27 H (8-23) mg/dL Creatinine 1.28 (0.70-1.30) mg/dL Glucose 115 H (70-105) mg/dL Calcium 8.1 L (8.6-10.3) mg/dL Calcium panel 12/08/18 Range/Units 03:32 Calcium 8.1 L (8.6-10.3) mg/dL Pituitary panel 12/08/18 Range/Units 03:32 Sodium 142 (136-145) mEq/L Potassium 3.9 (3.5-5.1) mEq/L Chloride 111 H (98-107) mEq/L Carbon Dioxide 25 (23-29) mEq/L BUN 27 H (8-23) mg/dL Creatinine 1.28 (0.70-1.30) mg/dL Glucose 115 H (70-105) mg/dL Calcium 8.1 L (8.6-10.3) mg/dL Adrenal panel 12/08/18 Range/Units 03:32 Sodium 142 (136-145) mEq/L Potassium 3.9 (3.5-5.1) mEq/L Chloride 111 H (98-107) mEq/L Carbon Dioxide 25 (23-29) mEq/L BUN 27 H (8-23) mg/dL Creatinine 1.28 (0.70-1.30) mg/dL Glucose 115 H (70-105) mg/dL Calcium 8.1 L (8.6-10.3) mg/dL Consult Discharge Plan - Plan Instructions: Negative Pressure Wound Therapy (DC) Additional Instructions: Follow-up with in wound care 1-2 weeks after discharge. Home health care for wound vac changes Wound Vac: Changes Q M/W/. Black foam. -125 mmhg suction (continuous). Referrals: Shanthi Mccollum [Primary Care Provider] - <Martha Soriano F - Last Filed: 12/08/18 09:12> Date of Encounter: 12/08/18 Objective Vital Signs - Last 8 Hours Temp Pulse Resp BP Pulse Ox 12/08/18 06:42 97.7 F 65 16 129/68 95 12/08/18 04:15 97.9 F 62 20 121/68 95 Intake and Output 12/07/18 12/08/18 12/08/18 23:59 07:59 15:59 Intake Total 70 / 920 50 / 50 Output Total 0 / 1050 Balance 70 / -130 50 / 50 Intake: IV Fluids 70 / 440 50 / 50 Maxipime 2,000 MG In Water for inj. (sterile) 20 ML @ 300 mls/ hr IVP Q12HR [facility] Rx#:[id number] Cleocin Premix 600 MG/50 ML 600 50 / 150 50 / 50 mg In 50 ml @ 50 mls/hr IVPB Q8HR [facility] Rx#:[id number] Output: Urine 0 / 0 - Labs 12/08/18 03:32 12/08/18 03:32 Diabetes panel 12/08/18 Range/Units 03:32 Sodium 142 (136-145) mEq/L Potassium 3.9 (3.5-5.1) mEq/L Chloride 111 H (98-107) mEq/L Carbon Dioxide 25 (23-29) mEq/L BUN 27 H (8-23) mg/dL Creatinine 1.28 (0.70-1.30) mg/dL Glucose 115 H (70-105) mg/dL Calcium 8.1 L (8.6-10.3) mg/dL Calcium panel 12/08/18 Range/Units 03:32 Calcium 8.1 L (8.6-10.3) mg/dL Pituitary panel 12/08/18 Range/Units 03:32 Sodium 142 (136-145) mEq/L Potassium 3.9 (3.5-5.1) mEq/L Chloride 111 H (98-107) mEq/L Carbon Dioxide 25 (23-29) mEq/L BUN 27 H (8-23) mg/dL Creatinine 1.28 (0.70-1.30) mg/dL Glucose 115 H (70-105) mg/dL Calcium 8.1 L (8.6-10.3) mg/dL Adrenal panel 12/08/18 Range/Units 03:32 Sodium 142 (136-145) mEq/L Potassium 3.9 (3.5-5.1) mEq/L Chloride 111 H (98-107) mEq/L Carbon Dioxide 25 (23-29) mEq/L BUN 27 H (8-23) mg/dL Creatinine 1.28 (0.70-1.30) mg/dL Glucose 115 H (70-105) mg/dL Calcium 8.1 L (8.6-10.3) mg/dL - Attending Attestation I examined this patient and my medical decision-making was reviewed with the [employer]. I agree with the documented findings, disposition and treatment plan as described to the extent set forth below. Pt condition is satisfactory for DC home per surgery. DC home with HH for wound vac management per primary service. F/U in wound clinic as advised.
[2018-12-08] MEDS: levETIRAcetam 250 MG TABLET PO SCH ×2 (08:53→20:01)
[2018-12-08] MEDS: Lactobacillus 1 EACH CAP.SPRINK PO SCH ×2 (08:53→20:01)
[2018-12-08] MEDS: Clindamycin 600 MG/50 ML 600 MG/50 ML IV.SOLN IVPB SCH (08:54)
[2018-12-08] MEDS: *HR* Enoxaparin 150 MG/ML SYRINGE SQ SCH ×2 (10:05→22:18)
--- NOTE | 2018-12-08 11:29 | Internal Med Progress Note ---
Hospitalist Progress Note - Encounter Date of Encounter: 12/08/18 Time of Encounter: 10:00 - Subjective Interval History: Patient is awake and alert. Feels much better today. Wound VAC has been placed on his right leg yesterday. Denies any fevers or chills overnight. Tolerating diet well. Pain in his right leg is improving. - Exam Vitals: Temp Pulse Resp BP Pulse Ox 98.0 F 60 16 126/73 97 12/08/18 10:39 12/08/18 10:39 12/08/18 10:39 12/08/18 10:39 12/08/18 10:39 Exam: General: Patient is alert, mild distress, oriented x 3 Respiratory: Good respiratory effort. Normal breath sounds. No wheezing or crackles. Cardiovascular: Regular rate and rhythm. s1 and s2 normal No clicks, rubs, gallops, or murmurs. No pedal edema Abdomen: Abdomen is soft, nontender. Bowel sounds are present Musculoskeletal: Spontaneously moving all extremities , right lower extremity bandaged and wound VAC in place. Skin: warm, dry, intact. Neuro: Alert oriented x 3 normal cranial nerves, no focal deficits - Assessment and Plan (1) Abscess of right lower extremity Current Visit: Yes Status: Acute (2) Obesities, morbid Current Visit: Yes Status: Chronic (3) Atrial fibrillation Current Visit: Yes Status: Chronic (4) Coronary artery disease Current Visit: Yes Status: Chronic DVT Prophylaxis: Patient on Lovenox - Summary of Assessment and Plan Summary of Assessment and Plan: Cellulitis and abscess involving the right lower extremity: Status post incision and drainage POD #2. Wound culture growing gram-negative rods. Will stop clindamycin. Continue cefepime and vancomycin for now. If cultures do not gr owgram-positive bacteria, will stop vancomycin tomorrow. Surgery following. Atrial fibrillation: Rate controlled. On Coumadin plus Lovenox. Coronary artery disease: Continue aspirin, beta roya and statin. Seizure disorder: Continue Keppra Moderate risk for complications - Time Spent with Patient Total time spent is greater than 50% in coordination of care (as documented) at patient's floor/unit and/or counseling patient: Internal Medicine: Result - Labs CBC & Chem 7: 12/08/18 03:32 12/08/18 03:32 Labs: Short CBC 12/08/18 Range/Units 03:32 WBC 7.1 (4.3-11.1) K/mcL Hgb 11.1 L (12.9-16.9) g/dL Hct 35.9 L (37.5-50.1) % Plt Count 145 (140-400) K/mcL Neutrophils # 4.5 (1.6-8.9) K/mcL BMP 12/08/18 03:32 Sodium 142 Potassium 3.9 Chloride 111 H Carbon Dioxide 25 BUN 27 H Creatinine 1.28 Glucose 115 H Calcium 8.1 L - ABG Interpretation ABG results: PT/INR, D-dimer PT 19.2 Seconds (9.4-12.1) H 12/08/18 03:32 Consult Discharge Plan - Plan Instructions: Negative Pressure Wound Therapy (DC) Additional Instructions: Follow-up with in wound care 1-2 weeks after discharge. Home health care for wound vac changes Wound Vac: Changes Q M/W/F. Black foam. -125 mmhg suction (continuous). Referrals: Shanthi Mccollum [Primary Care Provider] - (3) Atrial fibrillation Qualifiers: Atrial fibrillation type: paroxysmal Qualified Code(s): I48.0 - Paroxysmal atrial fibrillation (4) Coronary artery disease Qualifiers: Coronary Disease-Associated Artery/Lesion type: [place] artery [place] vs. transplanted heart: [place] heart Associated angina: without angina Qualified Code(s): I25.10 - Atherosclerotic heart disease of [place] coronary artery without angina pectoris
[2018-12-08] MEDS ORDERED: *HR* Warfarin 5 MG TABLET PO ONE (18:00)
[2018-12-08] MEDS: Aspirin Enteric Coated 81 MG Tablet PO SCH (20:01)
[2018-12-09 05:48] LABS: Basophils % 0.5 %; Eosinophils # 0.4 K/mcL (0.0-0.6); Eosinophils % 4.8 %; Hematocrit 35.6 % (37.5-50.1); Hemoglobin 10.9 g/dL (12.9-16.9); Immature Granulocytes % 0.5 % (0-4); Lymphocytes # 1.5 K/mcL (0.6-4.6); Mean Corpuscular HGB Conc 30.6 g/dL (31.6-35.5); Mean Corpuscular Hemoglobin 27.7 pg (28.0-33.3); Mean Corpuscular Volume 90.6 fL (83.0-100.0); Monocytes # 0.7 K/mcL (0.0-1.3); Monocytes % 9.8 %; Neutrophils # 4.9 K/mcL (1.6-8.9); Platelet Count 149 K/mcL (140-400); Red Blood Count 3.93 M/mcL (4.19-5.50); Red Cell Distribution Width 16.6 % (11.5-14.5); Segmented Neutrophils % 64.4 %; White Blood Count 7.6 K/mcL (4.3-11.1)
[2018-12-09 05:54] LABS: INR 2.3; Prothrombin Time 26.1 Seconds (9.4-12.1)
[2018-12-09] MEDS: Cefepime HCl 2,000 MG in Water for inj. (sterile) 20 ML IVP SCH (05:59)
[2018-12-09 06:13] LABS: BUN/Creatinine Ratio 22 (6-26); Blood Urea Nitrogen 30 mg/dL (8-23); Calcium 8.6 mg/dL (8.6-10.3); Carbon Dioxide 26 mEq/L (23-29); Chloride 105 mEq/L (98-107); Glucose 116 mg/dL (70-105); Osmolality,Calculated 319 (280-300); Potassium 4.5 mEq/L (3.5-5.1); Sodium 151 mEq/L (136-145); eGFR For African Americans > 60 (> 60); eGFR For Non-African Americans 53 (> 60)
[2018-12-09] MEDS ORDERED: Aminoglycoside Consult 1 EACH MC ONE (07:35)
[2018-12-09] MEDS: Lactobacillus 1 EACH CAP.SPRINK PO SCH ×2 (07:38→20:24)
[2018-12-09] MEDS: levETIRAcetam 250 MG TABLET PO SCH ×2 (07:38→20:24)
--- NOTE | 2018-12-09 11:18 | Internal Med Progress Note ---
Hospitalist Progress Note - Encounter Date of Encounter: 12/09/18 Time of Encounter: 11:15 - Subjective Interval History: Patient doing much better today. No new complaints. Tolerating diet well. Right lower extremity pain well controlled. - Exam Vitals: Temp Pulse Resp BP Pulse Ox 98.0 F 56 17 131/76 97 12/09/18 10:43 12/09/18 10:43 12/09/18 10:43 12/09/18 10:43 12/09/18 10:43 Exam: General: Patient is alert, mild distress, oriented x 3 Respiratory: Good respiratory effort. Normal breath sounds. No wheezing or crackles. Cardiovascular: Regular rate and rhythm. s1 and s2 normal No clicks, rubs, gallops, or murmurs. No pedal edema Abdomen: Abdomen is soft, nontender. Bowel sounds are present Musculoskeletal: Spontaneously moving all extremities , right lower extremity bandaged and wound VAC in place. Skin: warm, dry, intact. Neuro: Alert oriented x 3 normal cranial nerves, no focal deficits - Assessment and Plan (1) Abscess of right lower extremity Current Visit: Yes Status: Acute (2) Obesities, morbid Current Visit: Yes Status: Chronic (3) Atrial fibrillation Current Visit: Yes Status: Chronic (4) Coronary artery disease Current Visit: Yes Status: Chronic DVT Prophylaxis: Patient on Coumadin. INR therapeutic - Summary of Assessment and Plan Summary of Assessment and Plan: Cellulitis and abscess involving the right lower extremity: Status post incision and drainage POD #3. Wound culture growing Morganella. Sensitive to ceftriaxone. Will change antibiotic to ceftriaxone for now. Atrial fibrillation: Rate controlled. Continue Coumadin. Therapeutic. Acute kidney injury: Patient had acute kidney injury on presentation with creatinine of 1.62. This has improved to 1.28 yesterday but today slightly worse at 1.35. Will monitor for now. Vancomycin has been stopped today. Hypernatremia: Sodium 151 today. Will recheck sodium levels later today. Patient not receiving any sodium supplements. Not on any diuretics either. Coronary artery disease: Continue aspirin, beta roya and statin. Seizure disorder: Continue Keppra Moderate risk for complications - Time Spent with Patient Total time spent is greater than 50% in coordination of care (as documented) at patient's floor/unit and/or counseling patient: Internal Medicine: Result - Labs CBC & Chem 7: 12/09/18 04:42 12/09/18 04:42 Labs: Short CBC 12/09/18 Range/Units 04:42 WBC 7.6 (4.3-11.1) K/mcL Hgb 10.9 L (12.9-16.9) g/dL Hct 35.6 L (37.5-50.1) % Plt Count 149 (140-400) K/mcL Neutrophils # 4.9 (1.6-8.9) K/mcL BMP 12/09/18 04:42 Sodium 151 H Potassium 4.5 Chloride 105 Carbon Dioxide 26 BUN 30 H Creatinine 1.35 H Glucose 116 H Calcium 8.6 - ABG Interpretation ABG results: PT/INR, D-dimer PT 26.1 Seconds (9.4-12.1) H 12/09/18 04:42 Consult Discharge Plan - Plan Instructions: Negative Pressure Wound Therapy (DC) Additional Instructions: Follow-up with in wound care 1-2 weeks after discharge. Home health care for wound vac changes Wound Vac: Changes Q M/W/F. Black foam. -125 mmhg suction (continuous). Referrals: Shanthi Mccollum [Primary Care Provider] - (3) Atrial fibrillation Qualifiers: Atrial fibrillation type: paroxysmal Qualified Code(s): I48.0 - Paroxysmal atrial fibrillation (4) Coronary artery disease Qualifiers: Coronary Disease-Associated Artery/Lesion type: [place] artery [place] vs. transplanted heart: [place] heart Associated angina: without angina Qualified Code(s): I25.10 - Atherosclerotic heart disease of [place] coronary artery without angina pectoris
--- NOTE | 2018-12-09 13:27 | Discharge Summary ---
- NOTES TO OUTPATIENT PROVIDER Notes to Outpatient Provider: Patient with a history of aortic aneurysm, CVA, atrial fibrillation, aortic valve replacement, hyperlipidemia and hypertension was hospitalized here with cellulitis and abscess involving his right lower extremity. Patient has been dealing with an infection and nonhealing leg wound in this location ever since he had a traumatic injury 3 years back. Patient was evaluated by orthopedics, vascular surgery and general surgery. He underwent incision and drainage of abscess along with debridement of skin and necrotic subcutaneous tissue and fascia the right thigh on 12/06. Wound cultures are growing Morganella. Patient has a wound VAC in place. Surgery recommends disch arged on oral antibiotics and outpatient follow-up. Patient will be discharged once he has home health and care arranged. Orders not resulted at time of discharge: Pending orders 12/05/18 18:08 Culture,Blood [BC] Stat 12/06/18 17:16 Culture,Anaerobic [RM] Routine Date of Encounter: 12/09/18 Time of Encounter: 13:24 - Discharge Diagnosis (1) Abscess of right lower extremity Priority: Primary Status: Acute (2) Obesities, morbid Priority: Secondary Status: Chronic (3) Atrial fibrillation Priority: Secondary Status: Chronic Qualifiers: Atrial fibrillation type: paroxysmal Qualified Code(s): I48.0 - Paroxysmal atrial fibrillation (4) Coronary artery disease Priority: Secondary Status: Chronic Qualifiers: Coronary Disease-Associated Artery/Lesion type: [place] artery [place] vs. transplanted heart: [place] heart Associated angina: without angina Qualified Code(s): I25.10 - Atherosclerotic heart disease of [place] coronary artery without angina pectoris Hospital course: Mr. Post is a 63 year old male Patient with a history of aortic aneurysm, CVA, atrial fibrillation, aortic valve replacement, hyperlipidemia and hypertension was hospitalized here with cellulitis and abscess involving his right lower extremity. Patient has been dealing with an infection and nonhealing leg wound in this location ever since he had a traumatic injury 3 years back. Patient was evaluated by orthopedics, vascular surgery and general surgery. He underwent incision and drainage of abscess along with debridement of skin and necrotic subcutaneous tissue and fascia the right thigh on 12/06. Wound cultures are growing Morganella. Patient has a wound VAC in place. Surgery recommends discharged on oral antibiotics and outpatient follow-up. Patient will be discharged once he has home health and care arranged. Patient had acute kidney injury on presentation. Most likely related to Lasix use. Lasix has been held with improvement in his renal function. He probably also has underlying chronic kidney disease. Would recommend outpatient follow- up with nephrology. Will hold Lasix for now till he follows up as outpatient. Discharge discussed with: patient, nurse, case management - Time Spent with Patient Total time spent providing and/or coordinating discharge services: Time spent: Greater than 30 minutes (32 min) - Discharge Medications Prescriptions: No Action Furosemide [Lasix] 40 mg PO DAILY Sennosides [Senna] 8.6 mg PO BID PRN PRN Reason: Constipation Potassium Chloride [Klor-Con 10] 10 meq PO DAILY Pantoprazole Sodium [Protonix] 20 mg PO DAILY Metoprolol [Lopressor] 25 mg PO BID LevETIRAcetam [Keppra] 500 mg PO BID Aspirin [Lo-Dose Aspirin EC] 81 mg PO HS Warfarin [Coumadin] 5 mg PO 1800 Atorvastatin Calcium [Lipitor] 80 mg PO HS Home Medications: Furosemide [Lasix] 40 mg PO DAILY 08/23/15 [History] Aspirin [Lo-Dose Aspirin EC] 81 mg PO HS 10/29/18 [History] LevETIRAcetam [Keppra] 500 mg PO BID 10/29/18 [History] Metoprolol [Lopressor] 25 mg PO BID 10/29/18 [History] Pantoprazole Sodium [Protonix] 20 mg PO DAILY 10/29/18 [History] Potassium Chloride [Klor-Con 10] 10 meq PO DAILY 10/29/18 [History] Sennosides [Senna] 8.6 mg PO BID PRN 10/29/18 [History] Warfarin [Coumadin] 5 mg PO 1800 10/29/18 [History] Atorvastatin Calcium [Lipitor] 80 mg PO HS 10/30/18 [History] Allergies/Adverse Reactions: Allergy/AdvReac Type Severity Reaction Status Date / Time Penicillins [PCN] Allergy Hives Verified 10/30/18 13:40 Date of admission: 12/08/18 12:56 Primary care physician: Shanthi Mccollum Consults: 12/05/18 20:25 Consult to Orthopedic Surgery [CONS] Stat Consulting Provider: [facility] Reason for Consult: knee seroma Time Notified: 20:26 Call Completed: Yes 12/05/18 20:36 Consult to Vascular Surgery [CONS] Stat Consulting Provider: [facility] [place] Reason for Consult: RLE cellulitis Time Notified: 20:36 Call Completed: Yes Discharging clinician: Vandana Rosado Anticipated date of discharge: 12/09/18 - Constitutional Vitals: Temp Pulse Resp BP Pulse Ox 98.0 F 56 17 131/76 97 12/09/18 10:43 12/09/18 10:43 12/09/18 10:43 12/09/18 10:43 12/09/18 10:43 Exam: General: Patient is alert, mild distress, oriented x 3 Respiratory: Good respiratory effort. Normal breath sounds. No wheezing or crackles. Cardiovascular: Regular rate and rhythm. s1 and s2 normal No clicks, rubs, gallops, or murmurs. No pedal edema Abdomen: Abdomen is soft, nontender. Bowel sounds are present Musculoskeletal: Spontaneously moving all extremities , right lower extremity bandaged and wound VAC in place. Skin: warm, dry, intact. Neuro: Alert oriented x 3 normal cranial nerves, no focal deficits - Patient Status Disposition: Home Health Service Condition: Good Functional capacity at discharge: uses cane/walker Overall status at discharge: patient is progressing back to baseline - Ambulatory Orders Ambulatory Orders: Basic Metabolic Panel [CHEM] Time Frame: 1 Week, Facility: [facility], Location: Lab - Discharge Instructions Instructions: Negative Pressure Wound Therapy (DC), Atrial Fibrillation (DC), Cellulitis (DC) Follow Up With: Shanthi Mccollum [Primary Care Provider] - (In 1-2 weeks) Pavel Bonner DO [Partnered Physician] - (in 1week) Additional Instructions: Follow-up with in wound care 1-2 weeks after discharge. Home health care for wound vac changes Wound Vac: Changes Q M/W/F. Black foam. -125 mmhg suction (continuous). - Diet and Activity Activity: increase activity as tolerated Diet: diabetic diet, low salt diet, other (Fluid restriction to 1.5 L per day)
--- NOTE | 2018-12-09 14:01 | Physician Discharge Referral ---
Home Health/Hosp Referral Info Transfer to: Home Health Provider in Charge Post Discharge: PCP - Diagnosis (1) Abscess of right lower extremity Priority: Primary Status: Acute (2) Obesities, morbid Priority: Secondary Status: Chronic (3) Atrial fibrillation Priority: Secondary Status: Chronic (4) Coronary artery disease Priority: Secondary Status: Chronic - Respiratory Orders Smoking Cessation: Smoking cessation has been advised. For more information, call the [employer] Tobacco Quit Line at 3-418-RLGH-NOW. - Diet/Nutrition Diet/Nutrition Orders: Cardiac - Activity Activity Orders: Walker - Services Needed Following services are medically necessary services: Assisted Care Orders: Wound Vac: Changes Q M/W/F. Black foam. -125 mmhg suction (continuous). Please check INR in 2 days and then as needed to keep INR between 2 and 3. - Transfer Medications Prescriptions: Ciprofloxacin [Cipro] 500 mg PO BID #20 tablet Lactobacillus [Culturelle] 1 each PO BID #30 cap.sprink Home Medications: Aspirin [Lo-Dose Aspirin EC] 81 mg PO HS 10/29/18 [History] LevETIRAcetam [Keppra] 500 mg PO BID 10/29/18 [History] Metoprolol [Lopressor] 25 mg PO BID 10/29/18 [History] Pantoprazole Sodium [Protonix] 20 mg PO DAILY 10/29/18 [History] Sennosides [Senna] 8.6 mg PO BID PRN 10/29/18 [History] Atorvastatin Calcium [Lipitor] 80 mg PO HS 10/30/18 [History] Ciprofloxacin [Cipro] 500 mg PO BID #20 tablet 12/09/18 [Rx] Lactobacillus [Culturelle] 1 each PO BID #30 cap.sprink 12/09/18 [Rx] Warfarin [Coumadin] 2.5 mg PO 1800 #0 12/09/18 [Rx] Allergies/Adverse Reactions: Allergy/AdvReac Type Severity Reaction Status Date / Time Penicillins [PCN] Allergy Hives Verified 10/30/18 13:40 Certification: Further, I certify that my clinical findings support that this patient is homebound (i.e. absences from home require considerable and taxing effort and are for medical reasons or [facility] or infrequently or short duration when for other reasons) because: Homebound Reason: Patient requires assistance of a person or device to safely leave home (Patient requires nursing care to help with wound VAC and dressing changes) Attestation: My signature below is to certify that this patient is under my care and that I, or nurse practitioner, or a physician's health information assistant working with me, has a [id number] encounter with this patient.
--- NOTE | 2018-12-09 15:54 | Event Note ---
Date of Encounter: 12/09/18 Time of Encounter: 15:52 Called to assist bedside RN for wound vac change. Black foam to upper and lower RLE with bridging completed. Wound beds beefy red. No leak noted.
[2018-12-09] MEDS ORDERED: *HR* Warfarin 2.5 MG TABLET PO ONE (18:00)
[2018-12-09] MEDS: Aspirin Enteric Coated 81 MG Tablet PO SCH (20:24)
[2018-12-10] MEDS: *HR* Enoxaparin 150 MG/ML SYRINGE SQ SCH (07:36)
[2018-12-10 08:20] LABS: Prothrombin Time 22.7 Seconds (9.4-12.1)
[2018-12-10 08:27] LABS: BUN/Creatinine Ratio 26 (6-26); Blood Urea Nitrogen 29 mg/dL (8-23); Calcium 8.6 mg/dL (8.6-10.3); Carbon Dioxide 27 mEq/L (23-29); Chloride 110 mEq/L (98-107); Glucose 99 mg/dL (70-105); Osmolality,Calculated 302 (280-300); Potassium 4.3 mEq/L (3.5-5.1); Sodium 143 mEq/L (136-145); eGFR For African Americans > 60 (> 60); eGFR For Non-African Americans > 60 (> 60)
[2018-12-10] MEDS: cefTRIAXone 1,000 MG in Water for inj. (sterile) 10 ML IVP SCH (09:18)
[2018-12-10] MEDS: levETIRAcetam 250 MG TABLET PO SCH ×2 (09:18→21:50)
[2018-12-10] MEDS: Lactobacillus 1 EACH CAP.SPRINK PO SCH ×2 (09:18→21:51)
--- NOTE | 2018-12-10 13:11 | Internal Med Progress Note ---
Hospitalist Progress Note - Encounter Date of Encounter: 12/10/18 Time of Encounter: 10:00 - Subjective Interval History: Patient is awake and alert. Doing well. Ambulating with wound VAC in place. No new complaints. - Exam Vitals: Temp Pulse Resp BP Pulse Ox 98.2 F 68 18 159/80 93 12/10/18 11:34 12/10/18 11:34 12/10/18 11:34 12/10/18 11:34 12/10/18 11:34 Exam: General: Patient is alert, mild distress, oriented x 3 Respiratory: Good respiratory effort. Normal breath sounds. No wheezing or crackles. Cardiovascular: Regular rate and rhythm. s1 and s2 normal No clicks, rubs, gallops, or murmurs. No pedal edema Abdomen: Abdomen is soft, nontender. Bowel sounds are present Musculoskeletal: Spontaneously moving all extremities , right lower extremity wound appears clean. Wound VAC in place. Skin: warm, dry, intact. Neuro: Alert oriented x 3 normal cranial nerves, no focal deficits - Assessment and Plan (1) Abscess of right lower extremity Current Visit: Yes Status: Acute (2) Obesities, morbid Current Visit: Yes Status: Chronic (3) Atrial fibrillation Current Visit: Yes Status: Chronic (4) Coronary artery disease Current Visit: Yes Status: Chronic DVT Prophylaxis: Patient on Coumadin. INR therapeutic - Summary of Assessment and Plan Summary of Assessment and Plan: Cellulitis and abscess involving the right lower extremity: Status post incision and drainage POD #4. Wound culture growing Morganella. Continue ceftriaxone. Ciprofloxacin at discharge. Continue local wound care. Wound VAC in place. Follow up with surgery after discharge. Atrial fibrillation: Rate controlled. Continue Coumadin. Therapeutic. Acute kidney injury: Now resolved. We will continue to monitor. If renal function remained stable, resume Lasix tomorrow. Hypernatremia: Likely due to lab error. Sodium levels normal now. Coronary artery disease: Continue aspirin, beta roya and statin. Seizure disorder: Continue Keppra Moderate risk for complications - Time Spent with Patient Total time spent is greater than 50% in coordination of care (as documented) at patient's floor/unit and/or counseling patient: Internal Medicine: Result - Labs CBC & Chem 7: 12/09/18 04:42 12/10/18 07:11 Labs: BMP 12/09/18 12/10/18 14:30 07:11 Sodium 142 D 143 Potassium 4.3 Chloride 110 H Carbon Dioxide 27 BUN 29 H Creatinine 1.12 Glucose 99 Calcium 8.6 - ABG Interpretation ABG results: PT/INR, D-dimer PT 22.7 Seconds (9.4-12.1) H 12/10/18 07:11 Consult Discharge Plan - Plan Instructions: Atrial Fibrillation (DC), Cellulitis (DC), Negative Pressure Wound Therapy (DC) Additional Instructions: Follow-up with in wound care 1-2 weeks after discharge. Home health care for wound vac changes Wound Vac: Changes Q M/W/F. Black foam. -125 mmhg suction (continuous). Referrals: Papi Tafoya MD [Non-Partnered Physician] - 12/27/18 1:45 pm (Please follow up as schedule..) Tano Rodríguez MD [Partnered Physician] - 01/12/19 8:30 am (Please follow up as schedule..) Shanthi Mccollum [Primary Care Provider] - 12/14/18 10:00 am (Please follow up as schedule..) Prescriptions: Ciprofloxacin [Cipro] 500 mg PO BID #20 tablet Lactobacillus [Culturelle] 1 each PO BID #30 cap.sprink (3) Atrial fibrillation Qualifiers: Atrial fibrillation type: paroxysmal Qualified Code(s): I48.0 - Paroxysmal atrial fibrillation (4) Coronary artery disease Qualifiers: Coronary Disease-Associated Artery/Lesion type: [place] artery [place] vs. transplanted heart: [place] heart Associated angina: without angina Qualified Code(s): I25.10 - Atherosclerotic heart disease of [place] coronary artery without angina pectoris
[2018-12-10] MEDS ORDERED: *HR* Warfarin 2.5 MG TABLET PO ONE (18:00)
[2018-12-10] MEDS: Aspirin Enteric Coated 81 MG Tablet PO SCH (21:50)
[2018-12-11] MEDS: Lactobacillus 1 EACH CAP.SPRINK PO SCH ×2 (08:44→21:09)
[2018-12-11] MEDS: levETIRAcetam 250 MG TABLET PO SCH ×2 (08:44→21:09)
[2018-12-11] MEDS: cefTRIAXone 1,000 MG in Water for inj. (sterile) 10 ML IVP SCH (08:45)
[2018-12-11 10:30] LABS: INR 1.8; Prothrombin Time 20.6 Seconds (9.4-12.1)
[2018-12-11 10:41] LABS: BUN/Creatinine Ratio 25 (6-26); Blood Urea Nitrogen 28 mg/dL (8-23); Calcium 8.8 mg/dL (8.6-10.3); Carbon Dioxide 29 mEq/L (23-29); Chloride 106 mEq/L (98-107); Glucose 103 mg/dL (70-105); Osmolality,Calculated 298 (280-300); Potassium 4.3 mEq/L (3.5-5.1); Sodium 141 mEq/L (136-145); eGFR For African Americans > 60 (> 60); eGFR For Non-African Americans > 60 (> 60)
--- NOTE | 2018-12-11 11:49 | Internal Med Progress Note ---
Hospitalist Progress Note - Encounter Date of Encounter: 12/11/18 Time of Encounter: 11:43 - Subjective Interval History: Patient continues to do well. Pain well controlled and his right leg. Ambulating without much difficulty. No fevers or chills reported overnight. - Exam Vitals: Temp Pulse Resp BP Pulse Ox 97.5 F L 62 16 157/81 95 12/11/18 06:39 12/11/18 06:39 12/11/18 06:39 12/11/18 06:39 12/11/18 06:39 Exam: General: Patient is alert, mild distress, oriented x 3 Respiratory: Good respiratory effort. Normal breath sounds. No wheezing or crackles. Cardiovascular: Regular rate and rhythm. s1 and s2 normal No clicks, rubs, gallops, or murmurs. No pedal edema Abdomen: Abdomen is soft, nontender. Bowel sounds are present Musculoskeletal: Spontaneously moving all extremities , right lower extremity wound appears clean. Nontender. Wound VAC in place. Skin: warm, dry, intact. Neuro: Alert oriented x 3 normal cranial nerves, no focal deficits - Assessment and Plan (1) Abscess of right lower extremity Current Visit: Yes Status: Acute (2) Obesities, morbid Current Visit: Yes Status: Chronic (3) Atrial fibrillation Current Visit: Yes Status: Chronic (4) Coronary artery disease Current Visit: Yes Status: Chronic DVT Prophylaxis: Patient on Coumadin. INR therapeutic - Summary of Assessment and Plan Summary of Assessment and Plan: Cellulitis and abscess involving the right lower extremity: Status post incision and drainage POD #4. Wound culture growing Morganella. Continue ceftriaxone. Ciprofloxacin at discharge. Continue local wound care. Wound VAC in place. Follow up with surgery after discharge. Atrial fibrillation: Rate controlled. Continue Coumadin. INR 1.8. Pharmacy dosing Coumadin. Acute kidney injury: Now resolved. Resume Lasix at 20 mg daily. Coronary artery disease: Continue aspirin, beta roya and statin. Seizure disorder: Continue Keppra Low risk for complications - Time Spent with Patient Total time spent is greater than 50% in coordination of care (as documented) at patient's floor/unit and/or counseling patient: Internal Medicine: Result - Labs CBC & Chem 7: 12/09/18 04:42 12/11/18 10:11 Labs: BMP 12/11/18 10:11 Sodium 141 Potassium 4.3 Chloride 106 Carbon Dioxide 29 BUN 28 H Creatinine 1.12 Glucose 103 Calcium 8.8 - ABG Interpretation ABG results: PT/INR, D-dimer PT 20.6 Seconds (9.4-12.1) H 12/11/18 10:11 Consult Discharge Plan - Plan Instructions: Atrial Fibrillation (DC), Cellulitis (DC), Negative Pressure Wound Therapy (DC) Additional Instructions: Follow-up with in wound care 1-2 weeks after discharge. Home health care for wound vac changes Wound Vac: Changes Q M/W/F. Black foam. -125 mmhg suction (continuous). Referrals: Papi Tafoya MD [Non-Partnered Physician] - 12/27/18 1:45 pm (Please follow up as schedule..) Tano Rodríguez MD [Partnered Physician] - 01/12/19 8:30 am (Please follow up as schedule..) Shanthi Mccollum [Primary Care Provider] - 12/14/18 10:00 am (Please follow up as schedule..) Prescriptions: Ciprofloxacin [Cipro] 500 mg PO BID #20 tablet Lactobacillus [Culturelle] 1 each PO BID #30 cap.sprink (3) Atrial fibrillation Qualifiers: Atrial fibrillation type: paroxysmal Qualified Code(s): I48.0 - Paroxysmal atrial fibrillation (4) Coronary artery disease Qualifiers: Coronary Disease-Associated Artery/Lesion type: [place] artery [place] vs. transplanted heart: [place] heart Associated angina: without angina Qualified Code(s): I25.10 - Atherosclerotic heart disease of [place] coronary artery without angina pectoris
[2018-12-11] MEDS: Furosemide 20 MG TABLET PO SCH (12:37)
[2018-12-11] MEDS ORDERED: *HR* Warfarin 5 MG TABLET PO ONE (18:00)
[2018-12-11] MEDS: Aspirin Enteric Coated 81 MG Tablet PO SCH (21:08)
[2018-12-12 06:20] LABS: INR 1.6; Prothrombin Time 18.2 Seconds (9.4-12.1)
[2018-12-12 07:02] VITALS: BP 128/63
[2018-12-12] MEDS: levETIRAcetam 250 MG TABLET PO SCH (08:20)
[2018-12-12] MEDS: Lactobacillus 1 EACH CAP.SPRINK PO SCH (08:20)
[2018-12-12] MEDS: cefTRIAXone 1,000 MG in Water for inj. (sterile) 10 ML IVP SCH (08:20)
[2018-12-12] MEDS: Furosemide 20 MG TABLET PO SCH (08:20)
--- NOTE | 2018-12-12 13:43 | Internal Med Progress Note ---
Hospitalist Progress Note - Encounter Date of Encounter: 12/12/18 Time of Encounter: 09:40 - Subjective Interval History: Patient continues to do well. No new complaints. Tolerating diet well. - Exam Vitals: Temp Pulse Resp BP Pulse Ox 97.4 F L 62 18 128/63 96 12/12/18 07:01 12/12/18 07:01 12/12/18 07:01 12/12/18 07:01 12/12/18 07:01 Exam: General: Patient is alert, mild distress, oriented x 3 Respiratory: Good respiratory effort. Normal breath sounds. No wheezing or crackles. Cardiovascular: Regular rate and rhythm. s1 and s2 normal No clicks, rubs, g allops, or murmurs. No pedal edema Abdomen: Abdomen is soft, nontender. Bowel sounds are present Musculoskeletal: Spontaneously moving all extremities , right lower extremity wound appears clean. Nontender. Wound VAC in place. Skin: warm, dry, intact. Neuro: Alert oriented x 3 normal cranial nerves, no focal deficits - Assessment and Plan (1) Abscess of right lower extremity Current Visit: Yes Status: Acute (2) Obesities, morbid Current Visit: Yes Status: Chronic (3) Atrial fibrillation Current Visit: Yes Status: Chronic (4) Coronary artery disease Current Visit: Yes Status: Chronic DVT Prophylaxis: Patient on Coumadin. INR therapeutic - Summary of Assessment and Plan Summary of Assessment and Plan: Cellulitis and abscess involving the right lower extremity: Status post incision and drainage POD #5. Wound culture growing Morganella. Continue ceftriaxone. Ciprofloxacin at discharge. Continue local wound care. Wound VAC in place. Follow up with surgery after discharge. Awaiting home health arrangements for wound care. Atrial fibrillation: Rate controlled. Continue Coumadin. INR 1.6. Pharmacy dosing Coumadin. Acute kidney injury: Now resolved. Lasix resumed. Coronary artery disease: Continue aspirin, beta roya and statin. Seizure disorder: Continue Keppra Low risk for complications - Time Spent with Patient Total time spent is greater than 50% in coordination of care (as documented) at patient's floor/unit and/or counseling patient: Internal Medicine: Result - Labs CBC & Chem 7: 12/09/18 04:42 12/11/18 10:11 - ABG Interpretation ABG results: PT/INR, D-dimer PT 18.2 Seconds (9.4-12.1) H 12/12/18 05:02 Consult Discharge Plan - Plan Instructions: Atrial Fibrillation (DC), Cellulitis (DC), Negative Pressure Wound Therapy (DC) Additional Instructions: Follow-up with in wound care 1-2 weeks after discharge. Home health care for wound vac changes Wound Vac: Changes Q M/W/F. Black foam. -125 mmhg suction (continuous). Referrals: Papi Tafoya MD [Non-Partnered Physician] - 12/27/18 1:45 pm (Please follow up as schedule..) Tano Rodríguez MD [Partnered Physician] - 01/12/19 8:30 am (Please follow up as schedule..) Shanthi Mccollum [Primary Care Provider] - 12/14/18 10:00 am (Please follow up as schedule..) Prescriptions: Ciprofloxacin [Cipro] 500 mg PO BID #20 tablet Lactobacillus [Culturelle] 1 each PO BID #30 cap.sprink (3) Atrial fibrillation Qualifiers: Atrial fibrillation type: paroxysmal Qualified Code(s): I48.0 - Paroxysmal atrial fibrillation (4) Coronary artery disease Qualifiers: Coronary Disease-Associated Artery/Lesion type: [place] artery [place] vs. transplanted heart: [place] heart Associated angina: without angina Qualified Code(s): I25.10 - Atherosclerotic heart disease of [place] coronary artery without angina pectoris
--- NOTE | 2018-12-12 14:58 | Event Note ---
Date of Encounter: 12/12/18 Time of Encounter: 13:25 Contacted per bedside RN re: wound vac has not been approved per [facility] at this time and pt needs dispo 2/2 to his sister has . OK to d/c with wet to dry dressing with follow-up with Dr. Tafoya this week.
[2018-12-12] MEDS ORDERED: *HR* Warfarin 5 MG TABLET PO ONE (18:00)
== END 2018-12-12 14:03 | disposition home health service (06) | DRG 571 ==
LOC: 2ANU 16:22 → EMEROOARM 16:22 → SUATTDRO 20:56 → 2ANU 21:17
PROVIDERS: ADMIT Internal Medicine; ATTEND Internal Medicine

== ENCOUNTER 2018-12-28 13:53 | Observation (INO) ==
[2018-12-28 14:38] LABS: Basophils # 0.1 K/mcL (0.0-0.2); Basophils % 0.3 %; Eosinophils # 0.2 K/mcL (0.0-0.6); Eosinophils % 1.2 %; Hematocrit 39.3 % (37.5-50.1); Hemoglobin 12.6 g/dL (12.9-16.9); Immature Granulocytes % 0.7 % (0-4); Lymphocytes # 1.6 K/mcL (0.6-4.6); Lymphocytes % 10.8 %; Mean Corpuscular HGB Conc 32.1 g/dL (31.6-35.5); Mean Corpuscular Volume 87.3 fL (83.0-100.0); Monocytes # 1.2 K/mcL (0.0-1.3); Monocytes % 8.3 %; Neutrophils # 11.6 K/mcL (1.6-8.9); Platelet Count 141 K/mcL (140-400); Red Cell Distribution Width 16.4 % (11.5-14.5); Segmented Neutrophils % 78.7 %; White Blood Count 14.8 K/mcL (4.3-11.1)
[2018-12-28 14:55] LABS: BUN/Creatinine Ratio 20 (6-26); Blood Urea Nitrogen 27 mg/dL (8-23); Calcium 9.1 mg/dL (8.6-10.3); Carbon Dioxide 31 mEq/L (23-29); Chloride 103 mEq/L (98-107); Glucose 99 mg/dL (70-105); Osmolality,Calculated 299 (280-300); Sodium 142 mEq/L (136-145); eGFR For African Americans > 60 (> 60); eGFR For Non-African Americans 53 (> 60)
[2018-12-28] MEDS ORDERED: Isovue-370 500 ML BOTTLE IVP ONE (15:43)
[2018-12-28] MEDS ORDERED: Clindamycin 600 MG/50 ML 600 MG/50 ML IV.SOLN IVPB STA (15:50)
[2018-12-28] MEDS ORDERED: Naloxone 0.4 MG/ML INJ IVP PRN (16:34)
[2018-12-28] MEDS ORDERED: Ondansetron 4 MG/2 ML VIAL IVP PRN (16:34)
[2018-12-28] MEDS ORDERED: Acetaminophen 325 MG TABLET PO PRN (16:34)
[2018-12-28] MEDS ORDERED: *HR* HYDROcodone/Acet 5/325 mg TABLET PO PRN (16:34)
[2018-12-28] MEDS ORDERED: Sennosides 8.6 MG TABLET PO PRN (17:07)
[2018-12-28] MEDS: levETIRAcetam 250 MG TABLET PO SCH (21:05)
[2018-12-28] MEDS: Aspirin Enteric Coated 81 MG Tablet PO SCH (21:05)
[2018-12-28] MEDS: Ringers Solution, Lactated 1,000 ML IVC SCH (21:06)
[2018-12-29 04:57] LABS: Basophils % 0.5 %; Eosinophils # 0.3 K/mcL (0.0-0.6); Eosinophils % 3.3 %; Hematocrit 35.4 % (37.5-50.1); Hemoglobin 11.2 g/dL (12.9-16.9); Immature Granulocytes % 0.5 % (0-4); Lymphocytes # 1.3 K/mcL (0.6-4.6); Lymphocytes % 15.3 %; Mean Corpuscular HGB Conc 31.6 g/dL (31.6-35.5); Mean Corpuscular Hemoglobin 27.8 pg (28.0-33.3); Mean Corpuscular Volume 87.8 fL (83.0-100.0); Mean Platelet Volume 10.7 fL (9.4-12.4); Monocytes # 0.9 K/mcL (0.0-1.3); Monocytes % 10.6 %; Neutrophils # 6.1 K/mcL (1.6-8.9); Platelet Count 126 K/mcL (140-400); Red Blood Count 4.03 M/mcL (4.19-5.50); Red Cell Distribution Width 16.4 % (11.5-14.5); Segmented Neutrophils % 69.8 %; White Blood Count 8.8 K/mcL (4.3-11.1)
[2018-12-29 05:03] LABS: INR 4.3
[2018-12-29 05:12] LABS: Prothrombin Time 48.4 Seconds (9.4-12.1)
[2018-12-29 05:14] LABS: BUN/Creatinine Ratio 20 (6-26); Blood Urea Nitrogen 28 mg/dL (8-23); Calcium 8.5 mg/dL (8.6-10.3); Carbon Dioxide 28 mEq/L (23-29); Chloride 107 mEq/L (98-107); Glucose 143 mg/dL (70-105); Osmolality,Calculated 304 (280-300); Potassium 3.6 mEq/L (3.5-5.1); Sodium 143 mEq/L (136-145); eGFR For African Americans > 60 (> 60); eGFR For Non-African Americans 52 (> 60)
[2018-12-29 06:05] LABS: INR 4.3
[2018-12-29 06:11] LABS: Prothrombin Time 48.5 Seconds (9.4-12.1)
[2018-12-29] MEDS: levoFLOXacin 750 MG/150 ML 750 MG/150 ML BAG IVPB SCH (08:49)
[2018-12-29] MEDS: levETIRAcetam 250 MG TABLET PO SCH ×2 (08:50→21:12)
[2018-12-29] MEDS: Ringers Solution, Lactated 1,000 ML IVC SCH (14:25)
[2018-12-29] MEDS: Aspirin Enteric Coated 81 MG Tablet PO SCH (21:12)
[2018-12-30 05:24] LABS: Basophils % 0.4 %; Eosinophils # 0.5 K/mcL (0.0-0.6); Eosinophils % 7.6 %; Hematocrit 36.2 % (37.5-50.1); Hemoglobin 11.1 g/dL (12.9-16.9); Immature Granulocytes % 0.6 % (0-4); Lymphocytes # 1.5 K/mcL (0.6-4.6); Lymphocytes % 20.9 %; Mean Corpuscular HGB Conc 30.7 g/dL (31.6-35.5); Mean Corpuscular Volume 91.2 fL (83.0-100.0); Mean Platelet Volume 10.6 fL (9.4-12.4); Monocytes # 0.9 K/mcL (0.0-1.3); Neutrophils # 4.1 K/mcL (1.6-8.9); Platelet Count 122 K/mcL (140-400); Red Blood Count 3.97 M/mcL (4.19-5.50); Red Cell Distribution Width 16.4 % (11.5-14.5); Segmented Neutrophils % 58.5 %; White Blood Count 7.1 K/mcL (4.3-11.1)
[2018-12-30 05:27] LABS: INR 3.1; Prothrombin Time 35.5 Seconds (9.4-12.1)
[2018-12-30 05:41] LABS: BUN/Creatinine Ratio 23 (6-26); Blood Urea Nitrogen 27 mg/dL (8-23); Calcium 8.6 mg/dL (8.6-10.3); Carbon Dioxide 29 mEq/L (23-29); Chloride 108 mEq/L (98-107); Glucose 124 mg/dL (70-105); Osmolality,Calculated 303 (280-300); Potassium 4.1 mEq/L (3.5-5.1); Sodium 143 mEq/L (136-145); eGFR For African Americans > 60 (> 60); eGFR For Non-African Americans > 60 (> 60)
[2018-12-30 07:27] VITALS: BP 151/78
[2018-12-30] MEDS: levoFLOXacin 750 MG/150 ML 750 MG/150 ML BAG IVPB SCH (07:30)
[2018-12-30] MEDS: levETIRAcetam 250 MG TABLET PO SCH (07:30)
[2018-12-30] MEDS ORDERED: Aminoglycoside Consult 1 EACH MC ONE (14:08)
== END 2018-12-30 14:09 | disposition home health service (06) ==
LOC: EMEROOARM 13:53 → 3ANU 13:53 → SUATTDRO 16:12 → 3ANU 18:07
PROVIDERS: ADMIT Internal Medicine; ATTEND Internal Medicine

== ENCOUNTER 2020-06-14 11:09 | Inpatient (IN) ==
[2020-06-14 12:20] LABS: Basophils % 0.3 %; Eosinophils # 0.1 K/mcL (0.0-0.6); Eosinophils % 0.7 %; Hematocrit 39.2 % (37.5-50.1); Hemoglobin 12.4 g/dL (12.9-16.9); Immature Granulocytes % 0.6 % (0-4); Lymphocytes # 1.1 K/mcL (0.6-4.6); Lymphocytes % 7.5 %; Mean Corpuscular HGB Conc 31.6 g/dL (31.6-35.5); Mean Corpuscular Hemoglobin 29.8 pg (28.0-33.3); Mean Corpuscular Volume 94.2 fL (83.0-100.0); Mean Platelet Volume 10.4 fL (9.4-12.4); Monocytes # 0.7 K/mcL (0.0-1.3); Monocytes % 5.1 %; Platelet Count 173 K/mcL (140-400); Red Blood Count 4.16 M/mcL (4.19-5.50); Red Cell Distribution Width 14.9 % (11.5-14.5); Segmented Neutrophils % 85.8 %
[2020-06-14 12:26] LABS: INR 4.6; Prothrombin Time 51.4 Seconds (9.4-12.1)
[2020-06-14] MEDS ORDERED: 0.9 % Sodium Chloride 500 ML IVC ONE (12:52)
[2020-06-14 12:54] LABS: Calcium 8.8 mg/dL (8.6-10.3); Potassium 3.9 mEq/L (3.5-5.1); Troponin I 0.04 ng/mL (< 0.04)
[2020-06-14 12:59] LABS: VBG HCO3 27 mEq/L (21-27); VBG PCO2 54 mmHg (41-51); VBG PO2 42 mmHg (25-50)
[2020-06-14] MEDS ORDERED: Isovue-370 500 ML BOTTLE IVP ONE (13:22)
[2020-06-14] MEDS ORDERED: cefTRIAXone 1,000 MG in Water for inj. (sterile) 10 ML IVP ONE (13:23)
[2020-06-14] MEDS ORDERED: Azithromycin 500 MG in 0.9 % Sodium Chloride 250 ML IVPB ONE (13:23)
[2020-06-14] MEDS ORDERED: 0.9 % Sodium Chloride 500 ML ONE (14:10)
[2020-06-14] MEDS ORDERED: Acetaminophen 325 MG TABLET PO PRN (14:46)
[2020-06-14] MEDS ORDERED: Ondansetron 4 MG/2 ML VIAL IVP PRN (14:46)
[2020-06-14] MEDS ORDERED: Naloxone 0.4 MG/ML INJ IVP PRN (14:46)
[2020-06-14] MEDS ORDERED: *HR* Phytonadione 5 MG TABLET PO ONE (15:58)
[2020-06-14 16:23] LABS: Albumin 3.5 g/dL (3.5-5.7); Albumin/Globulin Ratio 0.9 (1.1-2.2); Bilirubin,Direct 0.5 mg/dL (0.0-0.2); Bilirubin,Indirect 0.8 mg/dL (0.0-1.0); Bilirubin,Total 1.3 mg/dL (0.3-1.0); Globulin 3.9 g/dL (2.4-3.5); Total Protein 7.4 g/dL (6.4-8.9)
[2020-06-14 18:07] LABS: Hematocrit 40.6 % (37.5-50.1); Hemoglobin 12.9 g/dL (12.9-16.9)
[2020-06-14 18:57] LABS: D-Dimer 642 ng/mLFEU (0-500); Fibrinogen 793 mg/dL (169-393)
[2020-06-14] MEDS ORDERED: Remdesivir 200 MG in 0.9 % Sodium Chloride 100 ML IVPB ONE (20:00)
[2020-06-14] MEDS: Ipratropium 1 PUFF INHALER IH SCH ×2 (20:38→23:53)
[2020-06-14] MEDS: Doxycycline 100 MG in 0.9 % Sodium Chloride Mini Bag 100 ML IVPB SCH (20:57)
[2020-06-14] MEDS: Loratadine 10 MG TABLET PO SCH (22:03)
[2020-06-14] MEDS: levETIRAcetam 250 MG TABLET PO SCH (22:45)
[2020-06-15 00:33] LABS: Basophils % 0.1 %; Hematocrit 36.1 % (37.5-50.1); Hemoglobin 11.5 g/dL (12.9-16.9); Immature Granulocytes % 0.6 % (0-4); Lymphocytes # 0.4 K/mcL (0.6-4.6); Lymphocytes % 2.5 %; Mean Corpuscular HGB Conc 31.9 g/dL (31.6-35.5); Mean Corpuscular Hemoglobin 29.3 pg (28.0-33.3); Mean Corpuscular Volume 92.1 fL (83.0-100.0); Mean Platelet Volume 10.5 fL (9.4-12.4); Monocytes # 0.4 K/mcL (0.0-1.3); Monocytes % 2.5 %; Platelet Count 171 K/mcL (140-400); Red Blood Count 3.92 M/mcL (4.19-5.50); Segmented Neutrophils % 94.3 %; White Blood Count 15.9 K/mcL (4.3-11.1)
[2020-06-15 00:40] LABS: VBG HCO3 23 mEq/L (21-27); VBG PCO2 39 mmHg (41-51); VBG PH 7.38 pH Units (7.32-7.42); VBG PO2 172 mmHg (25-50)
[2020-06-15 00:49] LABS: Alanine Aminotransferase 37 Units/L (7-52); Albumin 3.2 g/dL (3.5-5.7); Albumin/Globulin Ratio 0.9 (1.1-2.2); Alkaline Phosphatase 115 Units/L (34-104); Aspartate Amino Transferase 42 Units/L (13-39); BUN/Creatinine Ratio 28 (6-26); Bilirubin,Direct 0.3 mg/dL (0.0-0.2); Bilirubin,Indirect 0.4 mg/dL (0.0-1.0); Bilirubin,Total 0.7 mg/dL (0.3-1.0); Blood Urea Nitrogen 37 mg/dL (8-23); Calcium 8.3 mg/dL (8.6-10.3); Carbon Dioxide 22 mEq/L (23-29); Chloride 110 mEq/L (98-107); Globulin 3.7 g/dL (2.4-3.5); Glucose 153 mg/dL (70-105); Osmolality,Calculated 302 (280-300); Phosphorous 2.8 mg/dL (2.7-4.5); Potassium 4.2 mEq/L (3.5-5.1); Sodium 140 mEq/L (136-145); Total Protein 6.9 g/dL (6.4-8.9); eGFR For African Americans > 60 (> 60); eGFR For Non-African Americans 55 (> 60)
[2020-06-15 01:05] LABS: D-Dimer 584 ng/mLFEU (0-500)
[2020-06-15 01:06] LABS: Fibrinogen 822 mg/dL (169-393)
[2020-06-15 01:07] LABS: INR 5.4; Prothrombin Time 59.6 Seconds (9.4-12.1)
[2020-06-15] MEDS: Ipratropium 1 PUFF INHALER IH SCH ×6 (04:22→23:51)
[2020-06-15] MEDS: Doxycycline 100 MG in 0.9 % Sodium Chloride Mini Bag 100 ML IVPB SCH ×2 (05:02→18:10)
[2020-06-15] MEDS ORDERED: Furosemide 40 MG/4 ML VIAL IVP ONE (08:21)
[2020-06-15] MEDS ORDERED: levETIRAcetam 250 MG TABLET PO SCH (09:00)
[2020-06-15] MEDS: levETIRAcetam 250 MG TABLET PO SCH ×2 (10:07→20:09)
[2020-06-15 10:27] LABS: INR 3.6; Prothrombin Time 40.7 Seconds (9.4-12.1)
[2020-06-15] MEDS ORDERED: Warfarin perPT PO PRN (18:00)
[2020-06-15] MEDS ORDERED: 0.9 % Sodium Chloride 250 ML ONE (19:59)
[2020-06-15] MEDS: Remdesivir 100 MG in 0.9 % Sodium Chloride 100 ML IVPB SCH (20:05)
[2020-06-15] MEDS: Aspirin Enteric Coated 81 MG Tablet PO SCH (20:08)
[2020-06-15] MEDS: Loratadine 10 MG TABLET PO SCH (20:08)
[2020-06-16] MEDS: Dexmedetomidine HCl 400 MCG/100 ML MLS IVC SCH ×2 (00:39→03:38)
[2020-06-16] MEDS ORDERED: *HR* LORazepam 2 MG/ML VIAL ONE (01:01)
[2020-06-16] MEDS ORDERED: *HR* LORazepam 2 MG/ML VIAL IVP ONE ×2 (01:02→02:18)
[2020-06-16] MEDS: Ipratropium 1 PUFF INHALER IH SCH ×7 (04:01→23:40)
[2020-06-16] MEDS: Doxycycline 100 MG in 0.9 % Sodium Chloride Mini Bag 100 ML IVPB SCH ×2 (05:59→18:11)
[2020-06-16] MEDS ORDERED: *HR* LORazepam 2 MG/ML VIAL IVP PRN (06:00)
[2020-06-16 06:10] LABS: Basophils % 0.2 %; Hematocrit 39.4 % (37.5-50.1); Hemoglobin 12.3 g/dL (12.9-16.9); Immature Granulocytes % 0.7 % (0-4); Lymphocytes # 0.6 K/mcL (0.6-4.6); Lymphocytes % 3.1 %; Mean Corpuscular HGB Conc 31.2 g/dL (31.6-35.5); Mean Corpuscular Volume 92.9 fL (83.0-100.0); Mean Platelet Volume 10.8 fL (9.4-12.4); Monocytes # 0.8 K/mcL (0.0-1.3); Monocytes % 4.3 %; Neutrophils # 17.2 K/mcL (1.6-8.9); Platelet Count 193 K/mcL (140-400); Red Blood Count 4.24 M/mcL (4.19-5.50); Red Cell Distribution Width 15.2 % (11.5-14.5); Segmented Neutrophils % 91.7 %; White Blood Count 18.8 K/mcL (4.3-11.1)
[2020-06-16 06:14] LABS: VBG HCO3 24 mEq/L (21-27); VBG PCO2 44 mmHg (41-51); VBG PH 7.35 pH Units (7.32-7.42); VBG PO2 107 mmHg (25-50)
[2020-06-16 06:23] LABS: INR 2.1; Prothrombin Time 23.6 Seconds (9.4-12.1)
[2020-06-16] MEDS ORDERED: Furosemide 20 MG/2 ML VIAL IVP ONE (06:26)
[2020-06-16 06:33] LABS: Albumin 3.3 g/dL (3.5-5.7); Albumin/Globulin Ratio 0.8 (1.1-2.2); Bilirubin,Direct 0.2 mg/dL (0.0-0.2); Bilirubin,Indirect 0.3 mg/dL (0.0-1.0); Bilirubin,Total 0.5 mg/dL (0.3-1.0); Calcium 8.7 mg/dL (8.6-10.3); Globulin 3.9 g/dL (2.4-3.5); Magnesium 2.4 mg/dL (1.6-2.6); Potassium 4.6 mEq/L (3.5-5.1); Total Protein 7.2 g/dL (6.4-8.9)
[2020-06-16 06:51] LABS: ABG Base Excess -1 mEq/L (-2 to 3); ABG HCO3 25 mEq/L (21-27); ABG Oxygen Saturation 88 % (95-98); ABG PCO2 47 mmHg (35-45); ABG PH 7.34 pH Units (7.32-7.45); ABG PO2 58 mmHg (85-104); ABG TCO2 26 mEq/L (20-26); Blood Gas Modality avaps; Blood Gas Pressure Support 20 cm H2O; Blood Gas VT 550 cc
[2020-06-16] MEDS: levETIRAcetam 250 MG TABLET PO SCH ×2 (08:41→19:41)
[2020-06-16] MEDS ORDERED: Artificial Tears SOLN 15 ML BOTTLE BOTH EYES PRN (08:43)
[2020-06-16] MEDS: FentaNYL (PF) 1,000 MCG/100 ML IV.SOLN IVC SCH ×3 (09:54→21:16)
[2020-06-16] MEDS: Midazolam HCl 50 MG/100 ML IV.SOLN IVC SCH ×2 (09:55→15:33)
[2020-06-16] MEDS: Cisatracurium 200 MG in 0.9 % Sodium Chloride 180 ML IVC SCH ×2 (09:55→17:18)
[2020-06-16] MEDS: Artificial Tears SOLN 15 ML BOTTLE BOTH EYES SCH ×3 (11:09→19:42)
[2020-06-16] MEDS: Pantoprazole 40 MG VIAL IVP SCH (11:09)
[2020-06-16] MEDS: Chlorhexidine Rinse 15 ML MOUTHWASH MM SCH ×2 (11:09→19:42)
[2020-06-16] MEDS ORDERED: Furosemide 40 MG/4 ML VIAL IVP ONE (12:46)
[2020-06-16] MEDS ORDERED: *HR* Heparin 5,000 UNIT/ML VIAL IVP PRN ×2 (12:59)
[2020-06-16] MEDS ORDERED: Perflutren Lipid Microsphere 1.3 ML in 0.9 % Sodium Chloride 8.7 ML IVP PRN (13:01)
[2020-06-16 14:07] LABS: Hematocrit 37.8 % (37.5-50.1); Mean Corpuscular HGB Conc 31.7 g/dL (31.6-35.5); Mean Corpuscular Hemoglobin 29.3 pg (28.0-33.3); Mean Corpuscular Volume 92.4 fL (83.0-100.0); Mean Platelet Volume 10.8 fL (9.4-12.4); Platelet Count 184 K/mcL (140-400); Red Blood Count 4.09 M/mcL (4.19-5.50); Red Cell Distribution Width 15.2 % (11.5-14.5); White Blood Count 16.6 K/mcL (4.3-11.1)
[2020-06-16 14:10] LABS: Bacteria,Urine Few per hpf (None-Few); Bilirubin,Urine Negative (Negative); Blood,Urine Trace (Negative); Clarity,Urine Clear (Clear); Color,Urine Yellow (Yellow); Glucose,Urine (UA) Normal (Normal); Hyaline Casts,Urine Few per lpf (None Seen); Ketones,Urine Negative (Negative); Leukocyte Esterase,Urine Negative (Negative); Mucus,Urine Few per lpf (None-Few); Nitrite,Urine Negative (Negative); Protein,Urine Trace mg/dL (Neg-Trace); RBC,Urine 15-30 per hpf (0-3); Specific Gravity,Urine 1.023 (1.010-1.025); Squamous Epithelial Cell,Urine Few per hpf (None-Few); Urobilinogen,Urine Normal (Normal)
[2020-06-16 14:14] LABS: Heparin anti-factor XA UFH < 0.04 IU/mL (0.30-0.70)
[2020-06-16 14:17] LABS: Activated Partial Thrombo Time 37.4 Seconds (26.0-36.0)
[2020-06-16] MEDS: Heparin 25,000UNIT/250ML 1/2NS 25,000 UNIT/250 ML IV.SOLN IVC SCH (15:10)
[2020-06-16 15:46] LABS: ABG Base Excess -2 mEq/L (-2 to 3); ABG HCO3 23 mEq/L (21-27); ABG Oxygen Saturation 97 % (95-98); ABG PCO2 39 mmHg (35-45); ABG PH 7.38 pH Units (7.32-7.45); ABG PO2 91 mmHg (85-104); ABG TCO2 25 mEq/L (20-26); Blood Gas VT 550 cc
[2020-06-16] MEDS: Cefepime HCl 2,000 MG in Water for inj. (sterile) 20 ML IVP SCH ×2 (15:53→23:48)
[2020-06-16] MEDS ORDERED: Piperacillin/Tazobactam 3.375 GM in 0.9 % Sodium Chloride Mini Bag 100 ML IVPB SCH (16:00)
[2020-06-16] MEDS ORDERED: *HR* Succinylcholine 200 MG/10 ML VIAL IVP ONE (16:29)
[2020-06-16] MEDS ORDERED: *HR* Propofol 200 MG/20 ML VIAL IVP ONE (16:29)
[2020-06-16] MEDS ORDERED: *HR* Warfarin 2.5 MG TABLET PO ONE (18:00)
[2020-06-16] MEDS ORDERED: Warfarin perPT PO PRN (18:00)
[2020-06-16] MEDS: Aspirin Enteric Coated 81 MG Tablet PO SCH (19:41)
[2020-06-16] MEDS: Remdesivir 100 MG in 0.9 % Sodium Chloride 100 ML IVPB SCH (19:54)
[2020-06-17] MEDS: Artificial Tears SOLN 15 ML BOTTLE BOTH EYES SCH ×7 (00:02→23:24)
[2020-06-17 00:47] LABS: ABG Base Excess -2 mEq/L (-2 to 3); ABG HCO3 25 mEq/L (21-27); ABG Oxygen Saturation 92 % (95-98); ABG PCO2 51 mmHg (35-45); ABG PH 7.29 pH Units (7.32-7.45); ABG PO2 73 mmHg (85-104); ABG TCO2 26 mEq/L (20-26); Blood Gas Modality ASSIST CONTROL; Blood Gas VT 400 cc
[2020-06-17] MEDS: Heparin 25,000UNIT/250ML 1/2NS 25,000 UNIT/250 ML IV.SOLN IVC SCH ×2 (01:14→17:44)
[2020-06-17] MEDS: Cisatracurium 200 MG in 0.9 % Sodium Chloride 180 ML IVC SCH ×4 (01:15→23:56)
[2020-06-17] MEDS: Ipratropium 1 PUFF INHALER IH SCH ×6 (03:36→23:34)
[2020-06-17] MEDS: FentaNYL (PF) 1,000 MCG/100 ML IV.SOLN IVC SCH ×4 (03:49→23:57)
[2020-06-17] MEDS: Dexmedetomidine HCl 400 MCG/100 ML MLS IVC SCH ×2 (03:50→18:41)
[2020-06-17 04:12] LABS: ABG Base Excess -2 mEq/L (-2 to 3); ABG HCO3 26 mEq/L (21-27); ABG Oxygen Saturation 89 % (95-98); ABG PCO2 57 mmHg (35-45); ABG PH 7.26 pH Units (7.32-7.45); ABG PO2 66 mmHg (85-104); ABG TCO2 27 mEq/L (20-26); Blood Gas Modality ASSIST CONTROL; Blood Gas VT 400 cc; VBG Ionized Calcium 1.08 mmol/L (1.15-1.35)
[2020-06-17 04:22] LABS: Basophils % 0.1 %; Hemoglobin 11.6 g/dL (12.9-16.9); Immature Granulocytes % 0.7 % (0-4); Lymphocytes # 0.5 K/mcL (0.6-4.6); Lymphocytes % 3.1 %; Mean Corpuscular HGB Conc 31.4 g/dL (31.6-35.5); Mean Corpuscular Hemoglobin 29.7 pg (28.0-33.3); Mean Corpuscular Volume 94.9 fL (83.0-100.0); Mean Platelet Volume 11.1 fL (9.4-12.4); Monocytes # 0.9 K/mcL (0.0-1.3); Neutrophils # 13.7 K/mcL (1.6-8.9); Platelet Count 195 K/mcL (140-400); Red Cell Distribution Width 15.3 % (11.5-14.5); Segmented Neutrophils % 90.1 %; White Blood Count 15.2 K/mcL (4.3-11.1)
[2020-06-17 04:23] LABS: INR 2.2
[2020-06-17 04:38] LABS: Albumin/Globulin Ratio 0.8 (1.1-2.2); Bilirubin,Total 0.5 mg/dL (0.3-1.0); Calcium 8.4 mg/dL (8.6-10.3); Globulin 3.7 g/dL (2.4-3.5); Magnesium 2.5 mg/dL (1.6-2.6); Phosphorous 4.2 mg/dL (2.7-4.5); Potassium 4.2 mEq/L (3.5-5.1); Total Protein 6.7 g/dL (6.4-8.9)
[2020-06-17] MEDS: Doxycycline 100 MG in 0.9 % Sodium Chloride Mini Bag 100 ML IVPB SCH ×2 (05:08→17:47)
[2020-06-17 05:19] LABS: Bilirubin,Direct 0.1 mg/dL (0.0-0.2); Bilirubin,Indirect 0.4 mg/dL (0.0-1.0)
[2020-06-17 05:30] LABS: Heparin anti-factor XA UFH 1.89 IU/mL (0.30-0.70)
[2020-06-17] MEDS: Cefepime HCl 2,000 MG in Water for inj. (sterile) 20 ML IVP SCH ×3 (07:21→23:57)
[2020-06-17] MEDS: Chlorhexidine Rinse 15 ML MOUTHWASH MM SCH ×2 (07:21→19:43)
[2020-06-17] MEDS: Pantoprazole 40 MG VIAL IVP SCH (07:22)
[2020-06-17] MEDS ORDERED: Furosemide 40 MG/4 ML VIAL IVP ONE (09:14)
[2020-06-17] MEDS ORDERED: 0.9 % Sodium Chloride 500 ML ONE (09:52)
[2020-06-17] MEDS ORDERED: *HR* Dextrose 50 % in Water (Vial) 50 ML VIAL IVP PRN (12:34)
[2020-06-17] MEDS ORDERED: D5% in Water 1,000 ML IVC PRN (12:34)
[2020-06-17] MEDS ORDERED: Dextrose Gel 15 GM/37.5 ML TUBE PO PRN ×2 (12:34)
[2020-06-17] MEDS: Insulin LISPRO 300 UNITS/3 ML VIAL SUBQ SCH ×3 (16:08→23:24)
[2020-06-17] MEDS: Remdesivir 100 MG in 0.9 % Sodium Chloride 100 ML IVPB SCH (19:43)
[2020-06-17] MEDS: Aspirin Enteric Coated 81 MG Tablet PO SCH (19:43)
[2020-06-18 03:28] LABS: VBG Ionized Calcium 1.05 mmol/L (1.15-1.35)
[2020-06-18] MEDS: Ipratropium 1 PUFF INHALER IH SCH ×6 (03:39→23:47)
[2020-06-18 03:40] LABS: Basophils % 0.2 %; Hematocrit 38.8 % (37.5-50.1); Hemoglobin 11.7 g/dL (12.9-16.9); Immature Granulocytes % 2.7 % (0-4); Lymphocytes # 0.5 K/mcL (0.6-4.6); Lymphocytes % 3.7 %; Mean Corpuscular HGB Conc 30.2 g/dL (31.6-35.5); Mean Corpuscular Hemoglobin 28.7 pg (28.0-33.3); Mean Corpuscular Volume 95.1 fL (83.0-100.0); Mean Platelet Volume 11.3 fL (9.4-12.4); Monocytes # 0.7 K/mcL (0.0-1.3); Monocytes % 5.3 %; Neutrophils # 12.3 K/mcL (1.6-8.9); Nucleated Red Blood Cells 0.1 /100 WBC (0); Platelet Count 214 K/mcL (140-400); Red Blood Count 4.08 M/mcL (4.19-5.50); Red Cell Distribution Width 15.6 % (11.5-14.5); Segmented Neutrophils % 88.1 %; White Blood Count 13.9 K/mcL (4.3-11.1)
[2020-06-18 03:49] LABS: Prothrombin Time 33.9 Seconds (9.4-12.1)
[2020-06-18 03:59] LABS: Albumin 2.9 g/dL (3.5-5.7); Albumin/Globulin Ratio 0.8 (1.1-2.2); Bilirubin,Direct 0.1 mg/dL (0.0-0.2); Bilirubin,Indirect 0.3 mg/dL (0.0-1.0); Bilirubin,Total 0.4 mg/dL (0.3-1.0); Calcium 8.1 mg/dL (8.6-10.3); Globulin 3.7 g/dL (2.4-3.5); Magnesium 2.4 mg/dL (1.6-2.6); Phosphorous 4.4 mg/dL (2.7-4.5); Potassium 4.3 mEq/L (3.5-5.1); Total Protein 6.6 g/dL (6.4-8.9)
[2020-06-18 04:02] LABS: ABG Base Excess -3 mEq/L (-2 to 3); ABG HCO3 24 mEq/L (21-27); ABG Oxygen Saturation 92 % (95-98); ABG PCO2 51 mmHg (35-45); ABG PH 7.28 pH Units (7.32-7.45); ABG PO2 72 mmHg (85-104); ABG TCO2 26 mEq/L (20-26); Blood Gas Modality ASSIST CONTROL; Blood Gas VT 400 cc
[2020-06-18] MEDS: Heparin 25,000UNIT/250ML 1/2NS 25,000 UNIT/250 ML IV.SOLN IVC SCH (04:18)
[2020-06-18] MEDS: Insulin LISPRO 300 UNITS/3 ML VIAL SUBQ SCH ×5 (05:15→19:34)
[2020-06-18] MEDS: Artificial Tears SOLN 15 ML BOTTLE BOTH EYES SCH ×5 (05:15→19:33)
[2020-06-18] MEDS: Dexmedetomidine HCl 400 MCG/100 ML MLS IVC SCH ×2 (05:15→21:36)
[2020-06-18] MEDS: Doxycycline 100 MG in 0.9 % Sodium Chloride Mini Bag 100 ML IVPB SCH ×2 (05:18→16:32)
[2020-06-18] MEDS: FentaNYL (PF) 1,000 MCG/100 ML IV.SOLN IVC SCH ×3 (06:35→20:31)
[2020-06-18] MEDS: Cefepime HCl 2,000 MG in Water for inj. (sterile) 20 ML IVP SCH ×3 (08:36→23:16)
[2020-06-18] MEDS: Chlorhexidine Rinse 15 ML MOUTHWASH MM SCH ×2 (08:37→19:33)
[2020-06-18] MEDS: Pantoprazole 40 MG VIAL IVP SCH (08:41)
[2020-06-18] MEDS ORDERED: Furosemide 40 MG/4 ML VIAL IVP ONE (12:06)
[2020-06-18] MEDS: Aspirin Enteric Coated 81 MG Tablet PO SCH (19:33)
[2020-06-18] MEDS: Remdesivir 100 MG in 0.9 % Sodium Chloride 100 ML IVPB SCH (20:30)
[2020-06-19] MEDS: Artificial Tears SOLN 15 ML BOTTLE BOTH EYES SCH ×6 (00:09→19:43)
[2020-06-19] MEDS: Insulin LISPRO 300 UNITS/3 ML VIAL SUBQ SCH ×6 (00:09→19:48)
[2020-06-19] MEDS: Cisatracurium 200 MG in 0.9 % Sodium Chloride 180 ML IVC SCH (00:30)
[2020-06-19] MEDS: FentaNYL (PF) 1,000 MCG/100 ML IV.SOLN IVC SCH ×4 (03:12→22:34)
[2020-06-19] MEDS: Ipratropium 1 PUFF INHALER IH SCH ×6 (03:48→23:33)
[2020-06-19 05:05] LABS: VBG Ionized Calcium 1.11 mmol/L (1.15-1.35)
[2020-06-19 05:09] LABS: Heparin anti-factor XA UFH 0.31 IU/mL (0.30-0.70)
[2020-06-19 05:11] LABS: Basophils % 0.3 %; Hematocrit 40.1 % (37.5-50.1); Hemoglobin 12.4 g/dL (12.9-16.9); Lymphocytes # 0.5 K/mcL (0.6-4.6); Lymphocytes % 3.8 %; Mean Corpuscular HGB Conc 30.9 g/dL (31.6-35.5); Mean Corpuscular Hemoglobin 29.8 pg (28.0-33.3); Mean Corpuscular Volume 96.4 fL (83.0-100.0); Monocytes % 7.2 %; Neutrophils # 11.6 K/mcL (1.6-8.9); Nucleated Red Blood Cells 0.1 /100 WBC (0); Platelet Count 235 K/mcL (140-400); Red Blood Count 4.16 M/mcL (4.19-5.50); Red Cell Distribution Width 15.6 % (11.5-14.5); Segmented Neutrophils % 84.7 %; White Blood Count 13.7 K/mcL (4.3-11.1)
[2020-06-19 05:14] LABS: ABG Base Excess -4 mEq/L (-2 to 3); ABG HCO3 23 mEq/L (21-27); ABG Oxygen Saturation 89 % (95-98); ABG PCO2 51 mmHg (35-45); ABG PH 7.27 pH Units (7.32-7.45); ABG PO2 65 mmHg (85-104); ABG TCO2 25 mEq/L (20-26); Blood Gas Modality AF; Blood Gas VT 400 cc
[2020-06-19 05:33] LABS: Albumin 2.9 g/dL (3.5-5.7); Albumin/Globulin Ratio 0.8 (1.1-2.2); Bilirubin,Direct 0.1 mg/dL (0.0-0.2); Bilirubin,Indirect 0.4 mg/dL (0.0-1.0); Bilirubin,Total 0.5 mg/dL (0.3-1.0); Globulin 3.8 g/dL (2.4-3.5); Magnesium 2.7 mg/dL (1.6-2.6); Phosphorous 4.2 mg/dL (2.7-4.5); Potassium 4.2 mEq/L (3.5-5.1); Total Protein 6.7 g/dL (6.4-8.9)
[2020-06-19] MEDS: Doxycycline 100 MG in 0.9 % Sodium Chloride Mini Bag 100 ML IVPB SCH (06:54)
[2020-06-19] MEDS ORDERED: *HR* Atropine Sulfate 1 MG/10 ML SYRINGE ONE (07:31)
[2020-06-19] MEDS: Pantoprazole 40 MG VIAL IVP SCH (10:25)
[2020-06-19] MEDS: Cefepime HCl 2,000 MG in Water for inj. (sterile) 20 ML IVP SCH ×3 (10:25→23:21)
[2020-06-19] MEDS: Dexamethasone Sodium Phos/PF 10 MG/ML VIAL IVP SCH (10:27)
[2020-06-19] MEDS: *HR* Enoxaparin 120 MG/0.8 ML SYRINGE SQ SCH ×2 (10:27→19:42)
[2020-06-19] MEDS: Chlorhexidine Rinse 15 ML MOUTHWASH MM SCH ×2 (10:27→19:43)
[2020-06-19] MEDS ORDERED: 0.9 % Sodium Chloride 500 ML ONE (10:38)
[2020-06-19] MEDS: Dexmedetomidine HCl 400 MCG/100 ML MLS IVC SCH (12:34)
[2020-06-19] MEDS ORDERED: Midazolam HCl 50 MG/100 ML IV.SOLN IVC SCH (17:00)
[2020-06-19] MEDS: Aspirin Enteric Coated 81 MG Tablet PO SCH (19:43)
[2020-06-20] MEDS: Artificial Tears SOLN 15 ML BOTTLE BOTH EYES SCH ×6 (00:02→20:10)
[2020-06-20] MEDS: Insulin LISPRO 300 UNITS/3 ML VIAL SUBQ SCH ×6 (00:02→20:49)
[2020-06-20] MEDS: Dexmedetomidine HCl 400 MCG/100 ML MLS IVC SCH ×2 (02:41→12:34)
[2020-06-20] MEDS: Midazolam HCl 50 MG/100 ML IV.SOLN IVC SCH ×3 (03:33→14:30)
[2020-06-20] MEDS: Ipratropium 1 PUFF INHALER IH SCH ×6 (03:43→23:41)
[2020-06-20] MEDS ORDERED: Midazolam HCl 50 MG/100 ML IV.SOLN IVC SCH (04:04)
[2020-06-20] MEDS: FentaNYL (PF) 2,500 MCG/50 ML IV.SOLN IVC SCH ×5 (04:10→20:10)
[2020-06-20 04:41] LABS: Basophils # 0.1 K/mcL (0.0-0.2); Basophils % 0.6 %; Hematocrit 42.3 % (37.5-50.1); Hemoglobin 13.1 g/dL (12.9-16.9); Immature Granulocytes % 5.1 % (0-4); Lymphocytes # 0.6 K/mcL (0.6-4.6); Lymphocytes % 2.6 %; Mean Corpuscular Hemoglobin 29.6 pg (28.0-33.3); Mean Corpuscular Volume 95.5 fL (83.0-100.0); Monocytes # 1.9 K/mcL (0.0-1.3); Nucleated Red Blood Cells 0.1 /100 WBC (0); Platelet Count 232 K/mcL (140-400); Red Blood Count 4.43 M/mcL (4.19-5.50); Red Cell Distribution Width 15.5 % (11.5-14.5); Segmented Neutrophils % 82.7 %
[2020-06-20 04:46] LABS: Neutrophils # 17.6 K/mcL (1.6-8.9); White Blood Count 21.3 K/mcL (4.3-11.1)
[2020-06-20 04:48] LABS: ABG Base Excess -5 mEq/L (-2 to 3); ABG HCO3 23 mEq/L (21-27); ABG Oxygen Saturation 89 % (95-98); ABG PCO2 55 mmHg (35-45); ABG PH 7.23 pH Units (7.32-7.45); ABG PO2 68 mmHg (85-104); ABG TCO2 25 mEq/L (20-26); Blood Gas Modality AF; Blood Gas VT 450 cc
[2020-06-20 04:52] LABS: Alanine Aminotransferase 34 Units/L (7-52); Albumin 2.4 g/dL (3.5-5.7); Albumin/Globulin Ratio 0.8 (1.1-2.2); Alkaline Phosphatase 70 Units/L (34-104); Aspartate Amino Transferase 30 Units/L (13-39); BUN/Creatinine Ratio 65 (6-26); Bilirubin,Total 0.5 mg/dL (0.3-1.0); Blood Urea Nitrogen 82 mg/dL (8-23); Calcium 6.6 mg/dL (8.6-10.3); Carbon Dioxide 17 mEq/L (23-29); Chloride 120 mEq/L (98-107); Globulin 3.2 g/dL (2.4-3.5); Glucose 129 mg/dL (70-105); Magnesium 2.2 mg/dL (1.6-2.6); Osmolality,Calculated 326 (280-300); Phosphorous 4.3 mg/dL (2.7-4.5); Potassium 3.8 mEq/L (3.5-5.1); Sodium 145 mEq/L (136-145); Total Protein 5.6 g/dL (6.4-8.9); eGFR For African Americans > 60 (> 60); eGFR For Non-African Americans 57 (> 60)
[2020-06-20 04:53] LABS: Albumin 3.1 g/dL (3.5-5.7); Albumin/Globulin Ratio 0.8 (1.1-2.2); Bilirubin,Direct 0.2 mg/dL (0.0-0.2); Bilirubin,Indirect 0.4 mg/dL (0.0-1.0); Bilirubin,Total 0.6 mg/dL (0.3-1.0); Globulin 3.9 g/dL (2.4-3.5)
[2020-06-20 05:14] LABS: Platelet Estimate Normal (Normal); Reactive Lymphocytes Present (Not Present)
[2020-06-20] MEDS: Pantoprazole 40 MG VIAL IVP SCH (09:25)
[2020-06-20] MEDS: Chlorhexidine Rinse 15 ML MOUTHWASH MM SCH ×2 (09:25→20:10)
[2020-06-20] MEDS: Cefepime HCl 2,000 MG in Water for inj. (sterile) 20 ML IVP SCH ×2 (09:25→17:11)
[2020-06-20] MEDS: *HR* Enoxaparin 120 MG/0.8 ML SYRINGE SQ SCH ×2 (09:25→20:11)
[2020-06-20] MEDS: Dexamethasone Sodium Phos/PF 10 MG/ML VIAL IVP SCH (09:26)
[2020-06-20] MEDS ORDERED: Lactulose Oral Soln 20 GM/30 ML UDC PO ONE (10:47)
[2020-06-20] MEDS: Docusate Oral Soln 100 MG/10 ML UDC GTUBE SCH ×2 (12:37→20:11)
[2020-06-20] MEDS: Aspirin 81 MG TAB.CHEW GTUBE SCH (12:37)
[2020-06-21] MEDS: Insulin LISPRO 300 UNITS/3 ML VIAL SUBQ SCH ×6 (00:05→20:57)
[2020-06-21] MEDS: Cefepime HCl 2,000 MG in Water for inj. (sterile) 20 ML IVP SCH ×4 (00:07→23:24)
[2020-06-21] MEDS: Artificial Tears SOLN 15 ML BOTTLE BOTH EYES SCH ×7 (00:07→23:24)
[2020-06-21] MEDS: Dexmedetomidine HCl 400 MCG/100 ML MLS IVC SCH ×2 (03:28→17:30)
[2020-06-21] MEDS: Ipratropium 1 PUFF INHALER IH SCH ×6 (04:14→23:39)
[2020-06-21 04:33] LABS: ABG Base Excess -3 mEq/L (-2 to 3); ABG HCO3 24 mEq/L (21-27); ABG Oxygen Saturation 98 % (95-98); ABG PCO2 50 mmHg (35-45); ABG PH 7.28 pH Units (7.32-7.45); ABG PO2 109 mmHg (85-104); ABG TCO2 25 mEq/L (20-26); Blood Gas Modality ASSIST CONTROL; Blood Gas VT 450 cc
[2020-06-21 05:12] LABS: VBG Ionized Calcium 1.16 mmol/L (1.15-1.35)
[2020-06-21 05:18] LABS: Basophils # 0.1 K/mcL (0.0-0.2); Basophils % 0.5 %; Hematocrit 39.5 % (37.5-50.1); Hemoglobin 12.1 g/dL (12.9-16.9); Immature Granulocytes % 5.4 % (0-4); Lymphocytes # 0.5 K/mcL (0.6-4.6); Lymphocytes % 2.9 %; Mean Corpuscular HGB Conc 30.6 g/dL (31.6-35.5); Mean Corpuscular Hemoglobin 28.7 pg (28.0-33.3); Mean Corpuscular Volume 93.8 fL (83.0-100.0); Monocytes % 6.3 %; Nucleated Red Blood Cells 0.2 /100 WBC (0); Platelet Count 198 K/mcL (140-400); Red Blood Count 4.21 M/mcL (4.19-5.50); Red Cell Distribution Width 15.8 % (11.5-14.5); Segmented Neutrophils % 84.9 %; White Blood Count 16.5 K/mcL (4.3-11.1)
[2020-06-21 05:34] LABS: Alanine Aminotransferase 32 Units/L (7-52); Albumin 2.7 g/dL (3.5-5.7); Albumin/Globulin Ratio 0.8 (1.1-2.2); Alkaline Phosphatase 74 Units/L (34-104); Aspartate Amino Transferase 23 Units/L (13-39); BUN/Creatinine Ratio 77 (6-26); Bilirubin,Total 0.6 mg/dL (0.3-1.0); Blood Urea Nitrogen 101 mg/dL (8-23); Calcium 8.4 mg/dL (8.6-10.3); Carbon Dioxide 23 mEq/L (23-29); Chloride 115 mEq/L (98-107); Globulin 3.6 g/dL (2.4-3.5); Glucose 175 mg/dL (70-105); Osmolality,Calculated 334 (280-300); Phosphorous 4.1 mg/dL (2.7-4.5); Potassium 4.4 mEq/L (3.5-5.1); Sodium 144 mEq/L (136-145); Total Protein 6.3 g/dL (6.4-8.9); eGFR For African Americans > 60 (> 60); eGFR For Non-African Americans 54 (> 60)
[2020-06-21 05:56] LABS: Platelet Estimate Normal (Normal); Toxic Granulation Present (Not Present)
[2020-06-21 05:57] LABS: Anisocytosis 1+ (Not Present); Poikilocytosis 1+ (Not Present)
[2020-06-21] MEDS: FentaNYL (PF) 2,500 MCG/50 ML IV.SOLN IVC SCH ×3 (06:00→20:55)
[2020-06-21 09:15] LABS: Chol/HDL Ratio 3.2 (0-4.9); Cholesterol 100 mg/dL (< 200); HDL Cholesterol 31 mg/dL (40-59); LDL Cholesterol,Calculated 29 mg/dL (< 100); Triglycerides 202 mg/dL (< 150)
[2020-06-21] MEDS ORDERED: 0.9 % Sodium Chloride 250 ML ONE (09:33)
[2020-06-21] MEDS: Docusate Oral Soln 100 MG/10 ML UDC GTUBE SCH ×2 (09:35→20:56)
[2020-06-21] MEDS: Chlorhexidine Rinse 15 ML MOUTHWASH MM SCH ×2 (09:35→20:56)
[2020-06-21] MEDS: Dexamethasone Sodium Phos/PF 10 MG/ML VIAL IVP SCH (09:36)
[2020-06-21] MEDS: *HR* Enoxaparin 120 MG/0.8 ML SYRINGE SQ SCH ×2 (09:36→20:56)
[2020-06-21] MEDS: Pantoprazole 40 MG VIAL IVP SCH (09:37)
[2020-06-21] MEDS: Aspirin 81 MG TAB.CHEW GTUBE SCH (09:37)
[2020-06-21] MEDS: Cisatracurium 200 MG in 0.9 % Sodium Chloride 180 ML IVC SCH (10:30)
[2020-06-21] MEDS: Midazolam HCl 50 MG/100 ML IV.SOLN IVC SCH ×2 (13:00→17:37)
[2020-06-22] MEDS: Midazolam HCl 50 MG/100 ML IV.SOLN IVC SCH ×3 (00:05→10:44)
[2020-06-22] MEDS: Insulin LISPRO 300 UNITS/3 ML VIAL SUBQ SCH ×7 (00:24→23:52)
[2020-06-22] MEDS: Artificial Tears SOLN 15 ML BOTTLE BOTH EYES SCH ×6 (03:33→23:12)
[2020-06-22 03:36] LABS: Hematocrit 39.7 % (37.5-50.1); Mean Corpuscular HGB Conc 30.2 g/dL (31.6-35.5); Mean Corpuscular Hemoglobin 28.6 pg (28.0-33.3); Mean Corpuscular Volume 94.5 fL (83.0-100.0); Mean Platelet Volume 11.6 fL (9.4-12.4); Nucleated Red Blood Cells 0.2 /100 WBC (0); Platelet Count 202 K/mcL (140-400); Red Cell Distribution Width 15.9 % (11.5-14.5); White Blood Count 22.1 K/mcL (4.3-11.1)
[2020-06-22 03:42] LABS: VBG Ionized Calcium 1.15 mmol/L (1.15-1.35)
[2020-06-22 03:52] LABS: Albumin 2.9 g/dL (3.5-5.7); Albumin/Globulin Ratio 0.9 (1.1-2.2); Bilirubin,Total 0.6 mg/dL (0.3-1.0); Calcium 8.4 mg/dL (8.6-10.3); Globulin 3.4 g/dL (2.4-3.5); Magnesium 3.4 mg/dL (1.6-2.6); Phosphorous 4.9 mg/dL (2.7-4.5); Total Protein 6.3 g/dL (6.4-8.9)
[2020-06-22] MEDS: Ipratropium 1 PUFF INHALER IH SCH ×6 (04:01→23:36)
[2020-06-22 04:14] LABS: Monocytes # 0.9 K/mcL (0.0-1.3); Neutrophils # 20.8 K/mcL (1.6-8.9); Platelet Estimate Normal (Normal)
[2020-06-22 04:39] LABS: ABG Base Excess -2 mEq/L (-2 to 3); ABG HCO3 26 mEq/L (21-27); ABG Oxygen Saturation 100 % (95-98); ABG PCO2 59 mmHg (35-45); ABG PH 7.26 pH Units (7.32-7.45); ABG PO2 431 mmHg (85-104); ABG TCO2 28 mEq/L (20-26); Blood Gas VT 450 cc
[2020-06-22] MEDS: FentaNYL (PF) 2,500 MCG/50 ML IV.SOLN IVC SCH ×3 (05:40→21:07)
[2020-06-22] MEDS: Dexmedetomidine HCl 400 MCG/100 ML MLS IVC SCH ×2 (08:26→23:11)
[2020-06-22] MEDS: *HR* Enoxaparin 120 MG/0.8 ML SYRINGE SQ SCH ×2 (08:41→22:09)
[2020-06-22] MEDS: Cefepime HCl 2,000 MG in Water for inj. (sterile) 20 ML IVP SCH ×3 (08:42→23:12)
[2020-06-22] MEDS: Docusate Oral Soln 100 MG/10 ML UDC GTUBE SCH ×2 (08:43→19:56)
[2020-06-22] MEDS: Pantoprazole 40 MG VIAL IVP SCH (08:43)
[2020-06-22] MEDS: Dexamethasone Sodium Phos/PF 10 MG/ML VIAL IVP SCH (08:43)
[2020-06-22] MEDS: Cholecalciferol (D-3) 1,000 UNIT (25MCG) TABLET PO SCH (08:43)
[2020-06-22] MEDS: Chlorhexidine Rinse 15 ML MOUTHWASH MM SCH ×2 (08:43→19:56)
[2020-06-22] MEDS: Aspirin 81 MG TAB.CHEW GTUBE SCH (08:44)
[2020-06-22] MEDS ORDERED: 0.9 % Sodium Chloride 500 ML ONE (13:18)
[2020-06-22] MEDS: Cisatracurium 200 MG in 0.9 % Sodium Chloride 180 ML IVC SCH (14:59)
[2020-06-23] MEDS: Ipratropium 1 PUFF INHALER IH SCH ×6 (03:23→23:56)
[2020-06-23] MEDS: FentaNYL (PF) 2,500 MCG/50 ML IV.SOLN IVC SCH ×3 (04:12→17:35)
[2020-06-23] MEDS: Insulin LISPRO 300 UNITS/3 ML VIAL SUBQ SCH ×5 (04:18→20:31)
[2020-06-23] MEDS: Artificial Tears SOLN 15 ML BOTTLE BOTH EYES SCH ×5 (04:18→20:31)
[2020-06-23 04:20] LABS: VBG Ionized Calcium 1.18 mmol/L (1.15-1.35)
[2020-06-23 04:20] LABS: Hematocrit 39.8 % (37.5-50.1); Hemoglobin 12.4 g/dL (12.9-16.9); Mean Corpuscular HGB Conc 31.2 g/dL (31.6-35.5); Mean Corpuscular Volume 96.1 fL (83.0-100.0); Mean Platelet Volume 11.7 fL (9.4-12.4); Nucleated Red Blood Cells 0.2 /100 WBC (0); Platelet Count 195 K/mcL (140-400); Red Blood Count 4.14 M/mcL (4.19-5.50); Red Cell Distribution Width 16.1 % (11.5-14.5); White Blood Count 22.7 K/mcL (4.3-11.1)
[2020-06-23 04:35] LABS: ABG Base Excess -3 mEq/L (-2 to 3); ABG HCO3 25 mEq/L (21-27); ABG Oxygen Saturation 97 % (95-98); ABG PCO2 58 mmHg (35-45); ABG PH 7.25 pH Units (7.32-7.45); ABG PO2 107 mmHg (85-104); ABG TCO2 27 mEq/L (20-26); Blood Gas Modality ASSIST CONTROL; Blood Gas VT 450 cc
[2020-06-23 04:36] LABS: Alanine Aminotransferase 34 Units/L (7-52); Albumin 2.9 g/dL (3.5-5.7); Albumin/Globulin Ratio 0.8 (1.1-2.2); Alkaline Phosphatase 80 Units/L (34-104); Aspartate Amino Transferase 22 Units/L (13-39); BUN/Creatinine Ratio 98 (6-26); Bilirubin,Total 0.6 mg/dL (0.3-1.0); Blood Urea Nitrogen 129 mg/dL (8-23); Calcium 8.7 mg/dL (8.6-10.3); Carbon Dioxide 21 mEq/L (23-29); Chloride 119 mEq/L (98-107); Globulin 3.7 g/dL (2.4-3.5); Glucose 134 mg/dL (70-105); Magnesium 3.5 mg/dL (1.6-2.6); Osmolality,Calculated 352 (280-300); Phosphorous 5.5 mg/dL (2.7-4.5); Potassium 5.3 mEq/L (3.5-5.1); Sodium 149 mEq/L (136-145); Total Protein 6.6 g/dL (6.4-8.9); eGFR For African Americans > 60 (> 60); eGFR For Non-African Americans 54 (> 60)
[2020-06-23 05:07] LABS: Lymphocytes # 2.3 K/mcL (0.6-4.6); Neutrophils # 19.1 K/mcL (1.6-8.9)
[2020-06-23 05:08] LABS: Platelet Estimate Normal (Normal)
[2020-06-23] MEDS: Chlorhexidine Rinse 15 ML MOUTHWASH MM SCH ×2 (08:19→20:30)
[2020-06-23] MEDS: Pantoprazole 40 MG VIAL IVP SCH ×2 (08:20→18:18)
[2020-06-23] MEDS: *HR* Enoxaparin 120 MG/0.8 ML SYRINGE SQ SCH ×2 (08:20→20:30)
[2020-06-23] MEDS: Cefepime HCl 2,000 MG in Water for inj. (sterile) 20 ML IVP SCH ×2 (08:20→14:23)
[2020-06-23] MEDS: Docusate Oral Soln 100 MG/10 ML UDC GTUBE SCH ×2 (08:21→20:30)
[2020-06-23] MEDS: Aspirin 81 MG TAB.CHEW GTUBE SCH (08:21)
[2020-06-23] MEDS: Cholecalciferol (D-3) 1,000 UNIT (25MCG) TABLET PO SCH (08:21)
[2020-06-23] MEDS: Dexamethasone Sodium Phos/PF 10 MG/ML VIAL IVP SCH (08:21)
[2020-06-23] MEDS: Cisatracurium 200 MG in 0.9 % Sodium Chloride 180 ML IVC SCH (09:55)
[2020-06-23] MEDS: Dexmedetomidine HCl 400 MCG/100 ML MLS IVC SCH (12:34)
[2020-06-24] MEDS: Cefepime HCl 2,000 MG in Water for inj. (sterile) 20 ML IVP SCH ×4 (00:38→23:01)
[2020-06-24] MEDS: Artificial Tears SOLN 15 ML BOTTLE BOTH EYES SCH ×7 (00:39→23:01)
[2020-06-24] MEDS: Insulin LISPRO 300 UNITS/3 ML VIAL SUBQ SCH ×7 (00:39→23:25)
[2020-06-24] MEDS: FentaNYL (PF) 2,500 MCG/50 ML IV.SOLN IVC SCH ×3 (01:00→19:00)
[2020-06-24] MEDS: Dexmedetomidine HCl 400 MCG/100 ML MLS IVC SCH ×2 (04:29→11:44)
[2020-06-24 04:41] LABS: Hematocrit 38.1 % (37.5-50.1); Hemoglobin 11.8 g/dL (12.9-16.9); Mean Corpuscular Hemoglobin 30.2 pg (28.0-33.3); Mean Corpuscular Volume 97.4 fL (83.0-100.0); Mean Platelet Volume 12.1 fL (9.4-12.4); Nucleated Red Blood Cells 0.1 /100 WBC (0); Platelet Count 162 K/mcL (140-400); Red Blood Count 3.91 M/mcL (4.19-5.50); Red Cell Distribution Width 16.5 % (11.5-14.5); White Blood Count 21.4 K/mcL (4.3-11.1)
[2020-06-24 04:42] LABS: VBG Ionized Calcium 1.18 mmol/L (1.15-1.35)
[2020-06-24] MEDS: Ipratropium 1 PUFF INHALER IH SCH ×5 (04:57→19:47)
[2020-06-24 05:03] LABS: Lymphocytes # 2.1 K/mcL (0.6-4.6); Monocytes # 1.3 K/mcL (0.0-1.3); Neutrophils # 16.7 K/mcL (1.6-8.9); Platelet Estimate Normal (Normal)
[2020-06-24 05:04] LABS: Anisocytosis 1+ (Not Present); Poikilocytosis 1+ (Not Present); Smudge Cells Present (Not Present)
[2020-06-24 05:07] LABS: Alanine Aminotransferase 33 Units/L (7-52); Albumin 2.8 g/dL (3.5-5.7); Albumin/Globulin Ratio 0.8 (1.1-2.2); Alkaline Phosphatase 74 Units/L (34-104); Aspartate Amino Transferase 20 Units/L (13-39); Bilirubin,Total 0.6 mg/dL (0.3-1.0); Blood Urea Nitrogen > 130 mg/dL (8-23); Calcium 8.6 mg/dL (8.6-10.3); Carbon Dioxide 22 mEq/L (23-29); Chloride 123 mEq/L (98-107); Globulin 3.5 g/dL (2.4-3.5); Glucose 132 mg/dL (70-105); Phosphorous 6.2 mg/dL (2.7-4.5); Potassium 5.6 mEq/L (3.5-5.1); Sodium 152 mEq/L (136-145); Total Protein 6.3 g/dL (6.4-8.9); eGFR For African Americans > 60 (> 60); eGFR For Non-African Americans 51 (> 60)
[2020-06-24 05:17] LABS: ABG Base Excess -3 mEq/L (-2 to 3); ABG HCO3 25 mEq/L (21-27); ABG Oxygen Saturation 100 % (95-98); ABG PCO2 58 mmHg (35-45); ABG PH 7.24 pH Units (7.32-7.45); ABG PO2 381 mmHg (85-104); ABG TCO2 27 mEq/L (20-26); Blood Gas VT 450 cc
[2020-06-24] MEDS: Pantoprazole 40 MG VIAL IVP SCH ×2 (05:29→17:12)
[2020-06-24] MEDS: Docusate Oral Soln 100 MG/10 ML UDC GTUBE SCH ×2 (08:30→20:32)
[2020-06-24] MEDS: Aspirin 81 MG TAB.CHEW GTUBE SCH (08:30)
[2020-06-24] MEDS: Cholecalciferol (D-3) 1,000 UNIT (25MCG) TABLET PO SCH (08:30)
[2020-06-24] MEDS: Dexamethasone Sodium Phos/PF 10 MG/ML VIAL IVP SCH (08:31)
[2020-06-24] MEDS: Chlorhexidine Rinse 15 ML MOUTHWASH MM SCH ×2 (08:31→20:32)
[2020-06-24] MEDS: Cisatracurium 200 MG in 0.9 % Sodium Chloride 180 ML IVC SCH (09:23)
[2020-06-24] MEDS: *HR* Enoxaparin 120 MG/0.8 ML SYRINGE SQ SCH (09:24)
[2020-06-24 10:37] LABS: INR 1.9; Prothrombin Time 21.6 Seconds (9.4-12.1)
[2020-06-24 10:39] LABS: Activated Partial Thrombo Time 34.1 Seconds (26.0-36.0)
[2020-06-24 12:03] LABS: Hematocrit 38.5 % (37.5-50.1); Hemoglobin 11.6 g/dL (12.9-16.9); Mean Corpuscular HGB Conc 30.1 g/dL (31.6-35.5); Mean Corpuscular Hemoglobin 29.4 pg (28.0-33.3); Mean Corpuscular Volume 97.5 fL (83.0-100.0); Mean Platelet Volume 11.7 fL (9.4-12.4); Nucleated Red Blood Cells 0.2 /100 WBC (0); Platelet Count 171 K/mcL (140-400); Red Blood Count 3.95 M/mcL (4.19-5.50); Red Cell Distribution Width 16.4 % (11.5-14.5); White Blood Count 25.4 K/mcL (4.3-11.1)
[2020-06-24 12:39] LABS: Lymphocytes # 1.8 K/mcL (0.6-4.6); Monocytes # 1.5 K/mcL (0.0-1.3); Neutrophils # 22.1 K/mcL (1.6-8.9); Platelet Estimate Normal (Normal); Poikilocytosis 1+ (Not Present)
[2020-06-25] MEDS: Ipratropium 1 PUFF INHALER IH SCH ×7 (00:13→23:08)
[2020-06-25 03:59] LABS: ABG Base Excess -5 mEq/L (-2 to 3); ABG HCO3 23 mEq/L (21-27); ABG Oxygen Saturation 89 % (95-98); ABG PCO2 53 mmHg (35-45); ABG PH 7.25 pH Units (7.32-7.45); ABG PO2 68 mmHg (85-104); ABG TCO2 25 mEq/L (20-26); Blood Gas VT 450 cc
[2020-06-25 04:48] LABS: INR 1.9
[2020-06-25] MEDS: Artificial Tears SOLN 15 ML BOTTLE BOTH EYES SCH ×6 (04:49→23:56)
[2020-06-25 04:50] LABS: Activated Partial Thrombo Time 32.2 Seconds (26.0-36.0)
[2020-06-25] MEDS: Insulin LISPRO 300 UNITS/3 ML VIAL SUBQ SCH ×6 (04:50→23:55)
[2020-06-25] MEDS: Dexmedetomidine HCl 400 MCG/100 ML MLS IVC SCH ×2 (04:50→20:58)
[2020-06-25 04:51] LABS: Hematocrit 38.1 % (37.5-50.1); Hemoglobin 11.8 g/dL (12.9-16.9); Mean Corpuscular Hemoglobin 30.3 pg (28.0-33.3); Mean Corpuscular Volume 97.7 fL (83.0-100.0); Mean Platelet Volume 12.5 fL (9.4-12.4); Nucleated Red Blood Cells 0.4 /100 WBC (0); Platelet Count 172 K/mcL (140-400); Red Cell Distribution Width 16.7 % (11.5-14.5); White Blood Count 29.3 K/mcL (4.3-11.1)
[2020-06-25 05:01] LABS: Alanine Aminotransferase 31 Units/L (7-52); Albumin 2.9 g/dL (3.5-5.7); Albumin/Globulin Ratio 0.8 (1.1-2.2); Alkaline Phosphatase 80 Units/L (34-104); Aspartate Amino Transferase 19 Units/L (13-39); Bilirubin,Total 0.7 mg/dL (0.3-1.0); Blood Urea Nitrogen > 130 mg/dL (8-23); Calcium 8.6 mg/dL (8.6-10.3); Carbon Dioxide 21 mEq/L (23-29); Chloride 123 mEq/L (98-107); Globulin 3.5 g/dL (2.4-3.5); Glucose 114 mg/dL (70-105); Potassium 5.9 mEq/L (3.5-5.1); Sodium 154 mEq/L (136-145); Total Protein 6.4 g/dL (6.4-8.9); eGFR For African Americans 49 (> 60); eGFR For Non-African Americans 40 (> 60)
[2020-06-25] MEDS: FentaNYL (PF) 2,500 MCG/50 ML IV.SOLN IVC SCH ×2 (05:38→18:50)
[2020-06-25] MEDS: Pantoprazole 40 MG VIAL IVP SCH ×2 (05:38→16:14)
[2020-06-25 05:46] LABS: Lymphocytes # 1.2 K/mcL (0.6-4.6); Monocytes # 1.2 K/mcL (0.0-1.3); Neutrophils # 26.4 K/mcL (1.6-8.9); Platelet Estimate Normal (Normal); Smudge Cells Present (Not Present); Toxic Granulation Present (Not Present)
[2020-06-25] MEDS: Cefepime HCl 2,000 MG in Water for inj. (sterile) 20 ML IVP SCH ×2 (07:20→16:14)
[2020-06-25] MEDS: Aspirin 81 MG TAB.CHEW GTUBE SCH (07:21)
[2020-06-25] MEDS: Cholecalciferol (D-3) 1,000 UNIT (25MCG) TABLET PO SCH (07:21)
[2020-06-25] MEDS: Docusate Oral Soln 100 MG/10 ML UDC GTUBE SCH ×2 (07:21→20:56)
[2020-06-25] MEDS: Dexamethasone Sodium Phos/PF 10 MG/ML VIAL IVP SCH (07:21)
[2020-06-25] MEDS: Chlorhexidine Rinse 15 ML MOUTHWASH MM SCH ×2 (07:21→20:56)
[2020-06-25] MEDS: Cisatracurium 200 MG in 0.9 % Sodium Chloride 180 ML IVC SCH (09:56)
[2020-06-25] MEDS ORDERED: *HR* Alteplase (Cathflo) 2 MG VIAL IVP PRN (15:26)
[2020-06-25] MEDS ORDERED: *HR* Heparin 5,000 UNIT/ML VIAL CRRT PRN (15:26)
[2020-06-25] MEDS ORDERED: 0.9 % Sodium Chloride 1,000 ML PRIME ONE ×2 (15:26)
[2020-06-25] MEDS ORDERED: 0.9 % Sodium Chloride 1,000 ML PRIME SCH (15:30)
[2020-06-25 15:50] LABS: Magnesium 4.3 mg/dL (1.6-2.6); Phosphorous 6.8 mg/dL (2.7-4.5)
[2020-06-25] MEDS ORDERED: *HR* Heparin 5,000 UNIT/ML VIAL ONE (15:50)
[2020-06-25 19:09] LABS: Platelet Count 163 K/mcL (140-400)
[2020-06-25 19:10] LABS: Hematocrit 36.5 % (37.5-50.1); Hemoglobin 11.1 g/dL (12.9-16.9); Mean Corpuscular HGB Conc 30.4 g/dL (31.6-35.5); Mean Corpuscular Hemoglobin 30.1 pg (28.0-33.3); Mean Corpuscular Volume 98.9 fL (83.0-100.0); Mean Platelet Volume 12.9 fL (9.4-12.4); Nucleated Red Blood Cells 0.4 /100 WBC (0); Red Blood Count 3.69 M/mcL (4.19-5.50); Red Cell Distribution Width 16.8 % (11.5-14.5)
[2020-06-25 19:16] LABS: White Blood Count 31.9 K/mcL (4.3-11.1)
[2020-06-25 19:17] LABS: Activated Partial Thrombo Time 33.3 Seconds (26.0-36.0)
[2020-06-25 19:29] LABS: INR 2.1; Prothrombin Time 23.5 Seconds (9.4-12.1)
[2020-06-25 19:50] LABS: Lymphocytes # 1.3 K/mcL (0.6-4.6); Monocytes # 1.3 K/mcL (0.0-1.3); Neutrophils # 28.1 K/mcL (1.6-8.9)
[2020-06-25 19:51] LABS: Platelet Estimate Normal (Normal)
[2020-06-25] MEDS: PrismaSATE BGK 4/2.5 5,000 ML CRRT SCH ×2 (20:57)
[2020-06-25] MEDS: Midazolam HCl 50 MG/100 ML IV.SOLN IVC SCH (20:58)
[2020-06-25] MEDS: Norepinephrine 4 MG/254 ML IV.SOLN IVC SCH (23:56)
[2020-06-26] MEDS: PrismaSATE BGK 4/2.5 5,000 ML CRRT SCH ×2 (01:14→01:15)
[2020-06-26 02:45] LABS: Nucleated Red Blood Cells 0.9 /100 WBC (0); Red Cell Distribution Width 17.1 % (11.5-14.5)
[2020-06-26 02:46] LABS: Hematocrit 38.2 % (37.5-50.1); Hemoglobin 11.4 g/dL (12.9-16.9); Mean Corpuscular HGB Conc 29.8 g/dL (31.6-35.5); Mean Corpuscular Hemoglobin 29.1 pg (28.0-33.3); Mean Corpuscular Volume 97.4 fL (83.0-100.0); Mean Platelet Volume 12.9 fL (9.4-12.4); Platelet Count 205 K/mcL (140-400); Red Blood Count 3.92 M/mcL (4.19-5.50)
[2020-06-26 02:50] LABS: White Blood Count 51.3 K/mcL (4.3-11.1)
[2020-06-26] MEDS ORDERED: Vasopressin 40 UNIT in D5% in Water 100 ML IVC SCH (03:00)
[2020-06-26 03:03] LABS: Blood Urea Nitrogen > 130 mg/dL (8-23); Calcium 8.3 mg/dL (8.6-10.3); Carbon Dioxide 18 mEq/L (23-29); Chloride 117 mEq/L (98-107); Glucose 150 mg/dL (70-105); Magnesium 4.1 mg/dL (1.6-2.6); Phosphorous 7.3 mg/dL (2.7-4.5); Potassium 6.2 mEq/L (3.5-5.1); Sodium 148 mEq/L (136-145); eGFR For African Americans 42 (> 60); eGFR For Non-African Americans 35 (> 60)
[2020-06-26 03:08] LABS: Anisocytosis 1+ (Not Present); Large Platelets Present (Not Present); Monocytes # 2.1 K/mcL (0.0-1.3); Neutrophils # 48.2 K/mcL (1.6-8.9); Platelet Estimate Normal (Normal)
[2020-06-26] MEDS: Artificial Tears SOLN 15 ML BOTTLE BOTH EYES SCH (03:24)
[2020-06-26] MEDS: Ipratropium 1 PUFF INHALER IH SCH ×2 (03:25→07:41)
[2020-06-26 04:16] LABS: ABG Base Excess -7 mEq/L (-2 to 3); ABG HCO3 21 mEq/L (21-27); ABG Oxygen Saturation 100 % (95-98); ABG PCO2 53 mmHg (35-45); ABG PH 7.21 pH Units (7.32-7.45); ABG PO2 326 mmHg (85-104); ABG TCO2 23 mEq/L (20-26); Blood Gas Modality ASSIST CONTROL; Blood Gas VT 450 cc
[2020-06-26] MEDS ORDERED: Albumin Human 5% 12.5 GM/250 ML IV.SOLN IVPB ONE (04:35)
[2020-06-26] MEDS ORDERED: Albumin Human 5% 0 GM/0 ML IV.SOLN ONE (04:40)
[2020-06-26] MEDS: Norepinephrine 4 MG/254 ML IV.SOLN IVC SCH ×2 (04:45→06:53)
[2020-06-26] MEDS: Phenylephrine 10 MG in 0.9 % Sodium Chloride 250 ML IVC SCH ×2 (04:54→06:03)
[2020-06-26] MEDS: Insulin LISPRO 300 UNITS/3 ML VIAL SUBQ SCH (05:03)
[2020-06-26] MEDS: Pantoprazole 40 MG VIAL IVP SCH (05:53)
[2020-06-26] MEDS ORDERED: Phenylephrine 50 MG in 0.9 % Sodium Chloride 250 ML IVC SCH (06:15)
[2020-06-26] MEDS: FentaNYL (PF) 2,500 MCG/50 ML IV.SOLN IVC SCH (07:40)
[2020-06-26 07:43] VITALS: BP 56/42
== END 2020-06-26 10:30 | disposition expired | DRG 870 ==
LOC: 2NENU 11:09 → EMEROOARM 11:09 → 2NENU 15:51 → SUATTDRO 16:25 → 2NENU 20:53 → ICNU 06-16 08:45
PROVIDERS: ADMIT Student in an Organized Health Care Education/Training Program; ATTEND Pharmacist